=== PATIENT | male | born 1960 | race Hispanic/Latino ===

== ENCOUNTER 2018-07-02 23:15 | Inpatient (IN) | payer OTHER ==
[2018-07-03 00:30] LABS: CKMB 1.9 ng/mL (0-6.6); Troponin I Less than 0.010 ng/mL (< 0.028)
[2018-07-03] MEDS ORDERED: Ondansetron PF 4 MG/2 ML Vial IVP PRN (01:53)
[2018-07-03] MEDS ORDERED: hydrALAZINE 20 MG/ML VIAL SLOW IVP PRN (01:53)
[2018-07-03] MEDS ORDERED: Ondansetron ODT 4 MG TAB PO PRN (01:53)
[2018-07-03] MEDS ORDERED: Calcium Carbonate 500 MG ChewTAB PO PRN (01:53)
[2018-07-03] MEDS: diphenhydrAMINE 25 MG CAP PO PRN ×4 (02:13→23:00)
[2018-07-03 02:58] VITALS: BMI 32.9
[2018-07-03] MEDS ORDERED: Furosemide 40 MG/4 ML VIAL SLOW IVP SCH (04:00)
[2018-07-03] MEDS ORDERED: Levalbuterol HCl 1.25 MG/0.5 ML NEB NEB SCH (04:30)
--- NOTE | 2018-07-03 05:04 | HP ---
CHIEF COMPLAINT: Shortness of breath and increasing abdominal girth. HISTORY OF PRESENT ILLNESS: Mr. Simpson is a 58-year-old gentleman that has a history of chronic hepat itis C as well as cirrhosis of the liver. He is currently an inmate and has been incarcerated for th e past 5 years. He says that he was diagnosed with cirrhosis about 15 years ago. He has not had taurus atment for hepatitis C. He says that in the last couple of weeks, he has noted increasing abdominal girth and swelling in his lower extremities. He relates it to having an accident, where he fell and hit himself. He says on the toilet and fell. He says that he has also noted some abdominal discomfo rt. He denies any fever but has had some chills. He denies any hematemesis or vomiting. He denies any melena. He also denies any cough or congestion but says that he has been feeling weak and dizzy, especially when he tries to stand up. [facility] for [facility]. He had a CT s can of the abdomen, which was significant for a right pleural effusion, moderate size as well as poss ible infiltrate in the left base and some evidence for ascites and is being transferred to our facili ty for further evaluation. REVIEW OF SYSTEMS: All systems were reviewed and are negative except for that mentioned in the histo ry of present illness. The patient also states that he has never had to have fluid drained from his abdomen. PAST MEDICAL HISTORY: Significant for chronic hepatitis C, glaucoma, cirrhosis with a history of marcelle ices, hypertension, and diabetes mellitus. PAST SURGICAL HISTORY: He says he has had variceal banding as well as surgery for glaucoma. ALLERGIES: No known drug allergies. SOCIAL HISTORY: He is single, has two children. He is a nonsmoker, nondrinker. FAMILY HISTORY: Significant for heart disease. MEDICATIONS: Taken from his hospital records and include brimonidine ophthalmic 1 drop to both eyes 3 times a day, hydrochlorothiazide 25 mg daily, latanoprost 0.05% daily, omeprazole 40 mg daily, prop ranolol 10 mg twice a day, spironolactone 25 mg 3 times a day. PHYSICAL EXAMINATION: GENERAL: He is alert and oriented. He appears to be in some mild distress due to dyspnea. He is we ll-developed, well-nourished. VITAL SIGNS: Blood pressure was 106/84, heart rate 95, respiratory rate of 34, temperature is 97.9. HEENT: Pupils are equal, round, and reactive. Extraocular muscles are intact. His sclerae anicteri c. Throat: He has got poor dentition, no oral lesions, no erythema. NECK: No adenopathy, no bruits. LUNGS: He has got some rales at both bases and decreased breath sounds in the right base. There is no wheezing, no rhonchi. CARDIOVASCULAR: He had a normal S1, S2. I did not appreciate an S3 or S4. No murmurs, clicks, no r ubs. ABDOMEN: Distended, it is tense and dull to percussion. He has got some diffuse tenderness, but no rebound or guarding. I was not able to appreciate any organomegaly. EXTREMITIES: He has got significant pitting edema all the way to his thighs and into the groin. It is pitting and there was no erythema, no warmth. NEUROLOGIC: His cranial nerves II through XII are intact. Muscle strength is 5/5 in both upper and lower extremities. SKIN AND INTEGUMENT: There were no skin changes. No rash. He did have some mycotic nails MUSCULOSKELETAL: There was no joint effusions or muscle tenderness. LABORATORY DATA: Lab results were taken from the [facility] and the white blood cell count was 6.5, hemoglobin 13.3, hematocrit is 38, platelet count was 80. Sodium 132, potassium 3.8, chloride 102, CO2 is 25, BUN of 10, creatinine 0.6, glucose is 124. INR 1.3. BNP is 46. Ammonia le nazanin was 95. On this chest x-ray, he had some haziness bilaterally with the right more so than the le ft. He had some blunting of the costophrenic angles bilaterally and mild cardiomegaly, this is by my reading. Also EKG by my reading shows low voltage sinus rhythm with a rate of 96. ASSESSMENT AND PLAN: This is a 58-year-old gentleman that presents with acute respiratory failure in part to ascites with decreasing lung capacity as well as pneumonia. 1. With decompensated cirrhosis with ascites, he will be admitted. We will consult Interventional R adiology for an ultrasound-guided paracentesis. Since this is the first episode of ascites, we will send the fluid for Gram-stain and culture and cell count to rule out spontaneous bacterial peritoniti s. 2. Pneumonia. He will be placed on Levaquin to cover for this 3. Hypertension, currently his blood pressure is on the lower side and his medications for his liver failure including the propranolol and Aldactone can also serve as antihypertensives. 4. Chronic hepatitis C. The patient states that he is on the waiting list for treatment and this wi ll need to be handled through the correctional system.
[2018-07-03 05:22] LABS: INR-International Normal Ratio 1.5; Prothrombin Time 17.8 SEC (12.0-14.7)
[2018-07-03 05:34] LABS: Anion Gap 11 mmol/L (10-20); BUN (Urea Nitrogen) 13 mg/dL (8.4-25.7); Calc. Creatinine Clearance 136 mL/min (70-130); Calcium 8.3 mg/dL (7.8-10.44); Carbon Dioxide 24 mmol/L (22-29); Chloride 101 mmol/L (98-107); Estimated GFR-MDRD Greater than 90; Glucose 301 mg/dL (70-105); Potassium 3.6 mmol/L (3.5-5.1); Sodium 132 mmol/L (136-145)
[2018-07-03 07:44] LABS: #Basophils 0.1 thou/uL (0.0-0.2); #Lymphocytes 0.3 thou/uL (1.20-3.40); #Monocytes 0.2 thou/uL (0.11-0.59); #Neutrophils 4.9 thou/uL (1.40-6.50); %Basophils 1.7 % (0.0-1.0); %Lymphocytes 4.9 % (21.0-51.0); %Monocytes 2.7 % (0.0-10.0); %Neutrophils 90.8 % (42.0-75.0); Hemoglobin 13.5 g/dL (14.0-18.0); MDiff Complete? YES; Macrocytosis MODERATE=16-30 cells (100X) (0-5/hpf); Mean Corpuscular HGB CONC 32.6 g/dL (32.0-36.0); Mean Corpuscular Hemoglobin 36.1 pg (27.0-31.0); Mean Platelet Volume 7.9 fL (7.4-10.4); PLT Morphology Comment Appears Decreased; Platelet Count 70 thou/uL (130-400); RBC Distribution Width 14.4 % (11.5-14.5); Red Blood Cell (RBC) Count 3.74 mill/uL (4.70-6.10); White Blood Cell (WBC) Count 5.4 thou/uL (4.8-10.8)
--- NOTE | 2018-07-03 08:32 | RAD ---
CHEST ONE VIEW: Indication: History of dyspnea. Comparison: None. FINDINGS: There is cardiomegaly with pulmonary vascular congestion and perihilar airspace opacity. There are sm all bilateral pleural effusions. No pneumothorax is evident. IMPRESSION: Findings of volume overload and CHF. POS: [facility]
[2018-07-03] MEDS ORDERED: Dextrose 50% Abboject 50 ML SYRINGE SLOW IVP PRN (08:53)
[2018-07-03] MEDS ORDERED: Dextrose 5% in Water 1,000 ML IV PRN (08:53)
[2018-07-03] MEDS ORDERED: HumaLOG 300 UNITS/3 ML VIAL SC PRN (08:53)
--- NOTE | 2018-07-03 08:55 | PDOC.PN ---
- Subjective Encounter Start Date: 07/03/18 Encounter Start Time: 08:30 Notified by patient's nurse that his sepsis score had increased. Patient reports some difficulty breathing related to his abdominal distention. - Objective Resuscitation Status: Resuscitation Status FULL:Full Resuscitation MAR Reviewed: Yes Vital Signs & Weight: Vital Signs (12 hours) Temp Pulse Resp BP Pulse Ox 07/03/18 07:47 97.1 F L 113 H 22 H 139/68 97 07/03/18 06:00 97.4 F L 108 H 28 H 166/84 H 97 07/03/18 03:34 97.5 F L 126 H 40 H 158/100 H 94 L 07/03/18 01:53 96 07/03/18 01:45 97.5 F L 110 H 28 H 129/68 96 Weight Weight 216 lb 8 oz I&O: 07/02/18 07/03/18 07/04/18 06:59 06:59 06:59 Intake Total 340 Output Total 575 Balance -235 Result Diagrams: 07/03/18 05:02 07/03/18 05:02 Radiology Reviewed by me: Yes Phys Exam - Physical Examination Constitutional: NAD Sleeping, but awakens. Sleepy, but appropriate. Respiratory: no wheezing, no rales, no rhonchi Diminished right base. Cardiovascular: RRR, no significant murmur Distended, tense Deviation from normal: borderline encephalopathic, but appropriate Dx/Plan (1) Ascites Code(s): R18.8 - OTHER ASCITES Status: Acute Qualifiers: Ascites type: other type Qualified Code(s): R18.8 - Other ascites Comment: Hep C (2) Hepatitis C Code(s): B19.20 - UNSPECIFIED VIRAL HEPATITIS C WITHOUT HEPATIC COMA Status: Acute Comment: Chronic, untreated. (3) Cirrhosis Code(s): K74.60 - UNSPECIFIED CIRRHOSIS OF LIVER Status: Acute (4) SOB (shortness of breath) Code(s): R06.02 - SHORTNESS OF BREATH Status: Acute Comment: Secondary to ascites and pleural effusion (5) Peripheral edema Code(s): R60.9 - EDEMA, UNSPECIFIED Status: Acute (6) Hyperammonemia Code(s): E72.20 - DISORDER OF UREA CYCLE METABOLISM, UNSPECIFIED Status: Acute Comment: Borderline encephalopathic. On Lactulose. (7) Hyperglycemia Code(s): R73.9 - HYPERGLYCEMIA, UNSPECIFIED Status: Acute Comment: No prior DM. Accuchecks and SSI. (8) Pneumonia Code(s): J18.9 - PNEUMONIA, UNSPECIFIED ORGANISM Status: Acute Qualifiers: Pneumonia type: due to unspecified organism Laterality: left Comment: On Levaquin. - Plan * Paracentesis this morning. Reassess soon after the procedure. Continue abx. * Accuchecks and SSI.
[2018-07-03] MEDS ORDERED: Lidocaine 1% PF 5 ML VIAL ONE (10:29)
[2018-07-03] MEDS ORDERED: Sodium Bicarbonate 2.5 MEQ/5 ML VIAL ONE (10:29)
[2018-07-03] MEDS: Enoxaparin Sodium 30 MG/0.3 ML SYRINGE SC SCH (10:42)
--- NOTE | 2018-07-03 12:11 | ULT ---
ULTRASOUND GUIDED PARACENTESIS: HISTORY: Ascites. COMPARISON: None. TECHNIQUE: Consent was obtained to perform an ultrasound guided paracentesis. The patient's abdomen was evaluat ed. The right lower quadrant was deemed appropriate. Lidocaine 1% buffered with sodium bicarbonate was used for local anesthesia. Under ultrasound guidance, a 5 Pakistani, 7 cm catheter was advanced int o the peritoneal space. Via vacuum bottles, a total of 5 L of cloudy yellow-colored fluid was remove d. The patient tolerated the procedure well. No immediate or post procedure complications. FINDINGS: Technically successful ultrasound guided paracentesis. A total of 5 L of cloudy yellow-colored fluid was removed. There were no immediate or post procedure complications. IMPRESSION: Successful ultrasound guided paracentesis. POS: [facility]
[2018-07-03 13:20] LABS: BF Color Yellow; Body Fluid Source Ascites Body Fluid; Clarity Hazy (Clear); RBC Background Count 0.001; Tube # EDTA; WBC/NonHematic-Auto 242 /cumm
[2018-07-03 13:31] LABS: BF RBC Count - Manual 1800 /cumm
[2018-07-03 14:03] LABS: BF Segmented Neutrophils 31 %; Cell Count Non Hematic 57 %; Lymphocytes 12 %
[2018-07-03] MEDS: Ampicillin/Sulbactam 3 GM in Sodium Chloride 0.9% 100 ML IVPB SCH (17:48)
[2018-07-03] MEDS ORDERED: Spironolactone 25 MG TAB PO SCH (21:00)
[2018-07-03] MEDS: Propranolol 10 MG TAB PO SCH (22:05)
[2018-07-03] MEDS: Latanoprost 0.005% Ophth Soln 2.5 ml Bottle EA EYE SCH (22:05)
[2018-07-03] MEDS: Brimonidine Tartrate 0.2% Ophth Soln 5 ml Bottle EA EYE SCH (22:05)
[2018-07-04] MEDS: Ampicillin/Sulbactam 3 GM in Sodium Chloride 0.9% 100 ML IVPB SCH ×3 (01:09→18:22)
--- NOTE | 2018-07-04 03:44 | CON ---
DATE OF CONSULTATION: 07/03/2018 REASON FOR CONSULTATION: Cirrhosis with new onset ascites. CONSULTING PHYSICIAN: Dr. Nam Coats. HISTORY OF PRESENT ILLNESS: The patient is a 58-year-old male with past medical history of glaucoma, hypertension, diabetes, chronic hepatitis C infection and cirrhosis complicated by esophageal varices and lower extremity edema, presenting with complaints of increased abdominal distention. He states that he was in his usual state of health until approximately 2 weeks ago when he began to have the progressive worsening of abdominal distention and increase in weight over the same time. This was associated with increased shortness of breath at rest as well as dyspnea on exertion, dizziness, and generalized abdominal pain. His abdominal pain was characterized as a sharp, stabbing-type pain (more pricks/needles-type sensation) that was constant, nonradiating and would reach a severity of 7/10. There was no clear alleviating or exacerbating factors; however, he adds that he sustained a fall where he fell on his back with the onset of increased abdominal distention shortly thereafter. He currently denies any nausea, vomiting, fevers, chills, hematemesis, melena, hematochezia, dysphagia, odynophagia, or constipation. Concerning his cirrhosis history, he states that he was diagnosed with cirrhosis approximately 5 years and chronic hepatitis C approximately 15 years ago with his cirrhosis is complicated by the presence of esophageal varices that were noted on upper endoscopy in mid 2017, where he was noted to have large esophageal varices that were subsequently intervened upon with band ligation and placement on nonselective beta-naveen. He denies any history of hematemesis or variceal bleeding in the past, but rather the increased size of the varices necessitating treatment. He also endorses increased lower extremity edema for which he has been placed on spironolactone and furosemide as an outpatient and had been on these medications for quite some time. He also endorses a history of hepatic encephalopathy for which he had been taking lactulose 30 mL twice daily and was having approximately 2-3 semi-solid bowel movements per day while on this regimen. Also, of note, he has not been treated for his chronic hepatitis C infection, currently being naive to treatment. REVIEW OF SYSTEMS: A 10-category review of systems was obtained with all responses negative except for the pertinent positives as listed in the HPI. PAST MEDICAL HISTORY: As per HPI. PAST SURGICAL HISTORY: Glaucoma surgery, variceal band ligation x2. FAMILY HISTORY: Denies any GI malignancies. SOCIAL HISTORY: Denies any tobacco, alcohol, or illicit drug use. OUTPATIENT MEDICATIONS: Brimonidine ophthalmic 1 drop to both eyes 3 times daily, hydrochlorothiazide 25 mg daily, latanoprost 0.05% daily, omeprazole 40 mg daily, propranolol 10 mg twice daily, spironolactone 75 mg daily. ALLERGIES: No known drug allergies. PHYSICAL EXAMINATION: VITAL SIGNS: Temperature 97.9, pulse 113, blood pressure 123/65, respiratory rate 18, satting 95% on 2 liters nasal cannula. GENERAL: Patient is lying in bed, in no acute distress. Alert and oriented x4 ; however, he does display significant conversational dyspnea. NECK: Supple. No JVD noted. No scleral icterus also noted. CARDIOVASCULAR: Tachycardic rate, but regular rhythm with no discernible murmurs, gallops, or rubs. PULMONARY: Mild decreased breath sounds in the right lower lobe, but otherwise clear to auscultation. No discernible wheezes or rales. ABDOMEN: Normoactive bowel sounds, soft, tenderness to palpation in all abdominal quadrants. Significant abdominal distention with positive shifting dullness. I could not palpate any hepatomegaly or splenomegaly secondary to the ascites. He did exhibit some pitting edema in the lower abdomen as well, consistent with anasarca. EXTREMITIES: No cyanosis or clubbing; however, he did have 3+ bilateral lower extremity edema extending up into mid-thigh and possibly into the groin. LABORATORY DATA: CBC with a white blood cell count of 5.4, hemoglobin 13.5, hematocrit 41.4, platelets 70. INR 1.5. Chemistry with a sodium of 132, potassium 3.6, chloride 101, CO2 of 24, BUN 13, creatinine 0.84, glucose 301. Paracentesis fluid analysis showed a white blood cell count of 252 that was 31% PMNs. Preliminary culture of the ascitic fluid does not show any evidence of infection. IMAGING DATA: A chest x-ray was performed on 07/02/2018 and showed cardiomegaly with pulmonary vascular congestion and perihilar airspace opacities as well as small bilateral pleural effusions. No pneumothorax was evident, but the above findings were consistent with volume overload and possible CHF. ASSESSMENT AND PLAN: The patient is a 58-year-old male with past medical history of glaucoma, hypertension, diabetes, chronic hepatitis C infection, and cirrhosis complicated by esophageal varices, lower extremity edema, hepatic encephalopathy, and now more recently ascites, presenting with increased abdominal distention and imaging findings concerning for fluid overload. Cirrhosis: The patient is presenting with a diagnosis of cirrhosis that was made approximately 5 years ago, presumably secondary to one of the complicating sequelae of his chronic hepatitis C infection. With his cirrhosis, he is currently displaying decompensated disease as evidenced by the presence of prior esophageal varices, lower extremity edema, and now new onset ascites. I cannot calculate a MELD or Child-Osorio classification at this time due to lack of bilirubin on labs. Per chart review, there is no mention of the patient having either screening, imaging of his liver for possible HCC nor ever having undergone a colonoscopy for evaluation of possible colorectal cancer (the patient is at the appropriate age for colonoscopy screening). Recommendations: 1. Would obtain a full chemistry profile to accurately define the patient's current MELD score as well as determine liver function as evidenced by total bilirubin. 2. We will consider right upper quadrant ultrasound or CT of the liver during this admission for possible hepatocellular carcinoma, which could theoretically generate increased ascites. 3. Once the patient's status is discharged, would consider an outpatient colonoscopy for screening for colorectal cancer. New onset ascites: The patient is presenting with the fairly new onset of increased abdominal distention and weight that has been progressively getting worse over the last 2 weeks after sustaining a fall and landing on his back. This is associated with increased shortness of breath at rest as well as dyspnea on exertion for the last week and accompanied with increased generalized dizziness as well as generalized abdominal pain. He underwent paracentesis on 07/03/2018, which showed no evidence of infection via the culture and while he does have an elevated white blood cell count via analysis of the parasitic fluid, the fact that only 30% are PMNs, does not meet criteria for spontaneous bacterial peritonitis; however, given his significant conversational dyspnea especially after obtaining 5 liters of fluid from the paracentesis earlier today. It is concerning for another underlying process contributing to his new onset ascites, especially with a recent chest x-ray showing cardiomegaly and possible pulmonary vascular congestion consistent with fluid overload and/or congestive heart failure. Hepatocellular carcinoma is also within the differential for worsening of ascites. Recommendations: 1. I will call the lab to see if they can run the already existing paracentesis fluid with fluid albumin and protein to further differentiate whether or not this is portal hypertension or cardiac abnormalities generating his new onset ascites. 2. I would consider obtaining an echocardiogram on this patient given his cardiomegaly and pulmonary vascular congestion as cirrhosis patients are prone to heart disease as well. 3. I would recommend increasing the spironolactone to 100 mg daily, in addition to adding furosemide 40 mg daily for adequate diuresis of possible cirrhotic-induced ascites. However, this may change if he indeed does have congestive heart failure. 4. While the patient does not currently meet criteria for spontaneous bacterial peritonitis, antibiotic administration for his bilateral pleural effusions and possible pneumonia, it is not unreasonable. We will defer to primary team for management of that. 5. Would consider CT scan as above for possible HCC. Esophageal varices: The patient is presenting with the diagnosis of large esophageal varices that was made in mid 2016 for which he underwent two upper endoscopies with band ligation as well as placement on nonselective beta blockade. As an outpatient, he was taking approximately 10 mg of propranolol twice daily for primary prophylaxis of variceal bleeding. With sudden discontinuation of this medication, he could potentially create rebound hypertension and tachycardia, which may be why the patient is having the tachycardia on physical exam, but should not necessarily create increased volume overload as evidenced by his increased abdominal distention/anasarca as well as findings seen on chest x-ray. Recommendations: 1. I agree with restarting the propranolol 10 mg b.i.d., but would pursue the cardiac workup as outlined above for possible volume overload. 2. Repeat upper endoscopy will most likely need to be performed 1 year from his previous, but this is not necessarily due until 07/2018. Hepatic encephalopathy: The patient is also presenting with decompensated liver disease with episodes of hepatic encephalopathy as described by increased memory loss for which the patient was placed on lactulose 30 mL b.i.d. while on this regimen, he will have approximately 2-3 semisolid bowel movements per day and per patient, he has been fairly successful in helping clear sensorium. Recommendations: 1. I would continue the lactulose regimen of 30 mL twice daily for treatment of his hepatic encephalopathy. We will continue to follow. Please call with any questions. MTDD
[2018-07-04 05:53] LABS: INR-International Normal Ratio 1.6; Prothrombin Time 19.6 SEC (12.0-14.7)
[2018-07-04 06:04] LABS: #Lymphocytes 0.8 thou/uL (1.20-3.40); #Monocytes 0.7 thou/uL (0.11-0.59); #Neutrophils 5.6 thou/uL (1.40-6.50); %Basophils 0.1 % (0.0-1.0); %Eosinophils 0.7 % (0.0-10.0); %Lymphocytes 10.5 % (21.0-51.0); %Monocytes 10.4 % (0.0-10.0); %Neutrophils 78.3 % (42.0-75.0); Hemoglobin 11.4 g/dL (14.0-18.0); Mean Corpuscular HGB CONC 32.8 g/dL (32.0-36.0); Mean Corpuscular Hemoglobin 36.2 pg (27.0-31.0); Mean Platelet Volume 8.1 fL (7.4-10.4); Platelet Count 59 thou/uL (130-400); RBC Distribution Width 14.4 % (11.5-14.5); Red Blood Cell (RBC) Count 3.15 mill/uL (4.70-6.10); White Blood Cell (WBC) Count 7.1 thou/uL (4.8-10.8)
[2018-07-04 06:05] LABS: ALT (SGPT) 49 U/L (8-55); AST (SGOT) 60 U/L (5-34); Albumin 2.1 g/dL (3.5-5.0); Alkaline Phosphatase 126 U/L (40-150); Anion Gap 7 mmol/L (10-20); BUN (Urea Nitrogen) 13 mg/dL (8.4-25.7); Bilirubin, Total 1.6 mg/dL (0.2-1.2); Calc. Creatinine Clearance 176 mL/min (70-130); Calcium 7.8 mg/dL (7.8-10.44); Carbon Dioxide 27 mmol/L (22-29); Chloride 106 mmol/L (98-107); Estimated GFR-MDRD Greater than 90; Globulin 3.5 g/dL (2.4-3.5); Glucose 102 mg/dL (70-105); Potassium 3.8 mmol/L (3.5-5.1); Protein, Total 5.6 g/dL (6.0-8.3); Sodium 136 mmol/L (136-145)
--- NOTE | 2018-07-04 07:42 | RAD ---
PORTABLE UPRIGHT FRONTAL CHEST RADIOGRAPH: DATE: 07/04/2018. COMPARISON: 07/03/2018. HISTORY: Pleural effusion. FINDINGS: There is hazy increased density within bilateral perihilar regions, right greater than left, and with in both lung bases, right greater than left. There is blunting of bilateral costophrenic angles sugg esting stable bilateral pleural effusions, right greater than left. No pneumothorax. IMPRESSION: Stable bibasilar pleural and parenchymal opacity, right greater than left. Findings may be related t o pulmonary edema or infectious pneumonitis. POS: [facility]
[2018-07-04] MEDS ORDERED: Hydrochlorothiazide 25 MG TAB PO SCH (09:00)
[2018-07-04] MEDS: Furosemide 40 MG TAB PO SCH (09:11)
[2018-07-04] MEDS: Spironolactone 100 MG TAB PO SCH (09:11)
[2018-07-04] MEDS: Brimonidine Tartrate 0.2% Ophth Soln 5 ml Bottle EA EYE SCH ×3 (09:12→20:10)
--- NOTE | 2018-07-04 09:41 | CON ---
DATE OF CONSULTATION: 07/04/2018 This is 70 minutes time, of that time, greater than 50% of the time was spent with the patient and/or on the patient's unit in the hospital. CONSULTING PHYSICIAN: Dr. Coats REASON FOR CONSULTATION: Possible right pleural effusion. HISTORY OF PRESENT ILLNESS: The patient is a 58-year-old male who was admitted to the [facility] a couple of days ago with abdominal distention and shortness of breath. He has chronic hepatitis C. He had 5 liters of ascitic fluid tapped from his abdomen yesterday. He has a small right pleura l effusion. He tells me that his breathing is much better today after having the ascites tapped yest erday. He denies any previous history of lung disease and says he has no history of heart disease. PAST MEDICAL HISTORY: 1. Chronic hepatitis C. 2. Cirrhosis. 3. Esophageal varices. 4. Hypertension. 5. Diabetes mellitus. PAST SURGICAL HISTORY: Variceal banding. ALLERGIES: None. SOCIAL HISTORY: Former smoker, has not smoked in 6 years. Does not currently consume alcohol. He i s a pen[facility]iary inmate. MEDICATIONS PRIOR TO ADMISSION: Eyedrops, hydrochlorothiazide, omeprazole, propranolol, spironolacto ne. REVIEW OF SYSTEMS: Remarkable for shortness of breath and the ascites, otherwise negative. PHYSICAL EXAMINATION: VITAL SIGNS: Temperature 98.0, pulse 83, respirations 20, O2 saturation 97% on 2 liters, blood press ure 109/70. GENERAL: He appears mildly dyspneic at rest. HEENT: Unremarkable. NECK: Without adenopathy, JVD, or bruits. LUNGS: Diminished breath sounds in the right base compared to left. CARDIOVASCULAR: S1, S2, slightly tachycardic. No murmur. ABDOMEN: Distended, fluid wave present. EXTREMITIES: No clubbing, cyanosis, but has trace edema. LABORATORY DATA: White blood cell count 7, hematocrit 34.8, platelet count 59. INR 1.6. Sodium 136 , potassium 3.8, chloride 106, CO2 27, BUN 13, creatinine 0.6, glucose 102, albumin is 2.1, total sophia irubin 1.6. His ascitic fluid showed a total protein of less than 1. His chest x-ray was reviewed. ASSESSMENT: 1. The patient has bilateral effusions, right greater than left, which I would characterize as small . These are most likely there because of ascites and translocation of fluid. 2. Chronic hepatitis C. 3. Esophageal varices. RECOMMENDATIONS: These pleural effusions would be best managed medically with diuretics, fluid restr iction, etc. He is currently being seen by Dr. Ventura from [facility] for an opinion regarding his liver status. I think his prognosis is quite poor. I agree with checking echocardiogram. I silvano l be happy to follow with you.
[2018-07-04] MEDS: Enoxaparin Sodium 30 MG/0.3 ML SYRINGE SC SCH (10:57)
[2018-07-04] MEDS: Propranolol 10 MG TAB PO SCH ×2 (10:58→20:10)
[2018-07-04] MEDS ORDERED: ISOVUE-370 76%-LOCM 1 ML ONE (13:37)
[2018-07-04] MEDS: diphenhydrAMINE 25 MG CAP PO PRN ×2 (14:22→20:14)
--- NOTE | 2018-07-04 17:45 | PDOC.PN ---
- Subjective Encounter Start Date: 07/04/18 Encounter Start Time: 15:30 Patient seen and examined for Ascites/SOB. Abd pain +. Denies N/V. No new complaints. No overnight events - Objective Resuscitation Status: Resuscitation Status FULL:Full Resuscitation MAR Reviewed: Yes Vital Signs & Weight: Vital Signs (12 hours) Temp Pulse Resp BP Pulse Ox 07/04/18 15:00 98.2 F 77 16 118/69 98 07/04/18 11:00 97.6 F 75 17 109/76 99 Weight Weight 216 lb 8 oz I&O: 07/03/18 07/04/18 07/05/18 06:59 06:59 06:59 Intake Total 860 Output Total 775 Balance 85 Result Diagrams: 07/04/18 05:24 07/04/18 05:24 Additional Labs: Accuchecks 07/04/18 07/04/18 07/04/18 15:29 11:33 04:27 POC Glucose 131 H 157 H 144 H 07/03/18 21:09 POC Glucose 167 H Phys Exam - Physical Examination Constitutional: NAD Respiratory: no wheezing, no rhonchi Dec AE at bases with few biabsilar rales Cardiovascular: RRR, no rub Gastrointestinal: soft, positive bowel sounds mild gen tend+ Musculoskeletal: edema present Neurological: moves all 4 limbs Dx/Plan - Plan DVT proph w/SCDs 1. Symptomatic ascites s/p Paracentesis 2. Hepatic Encephalopathy 3. Chronic Hep C/Cirrhosis 4. Pleural effusion 5. DM2 6. Esophageal varices 7. HTN / Thrombocytopenia due to ESLD PLAN: Await Echo Cont Levaquin DC HCTZ DC Unasyn Cont Lacutlose AM labs DC Lovenox due to thrombocytopenia Review of Systems - Review of Systems Cardiovascular: negative: chest pain, palpitations, orthopnea, paroxysmal nocturnal dyspnea, edema, light headedness, other Genitourinary: negative: Dysuria, Frequency, Incontinence, Hematuria, Retention , Other - Medications/Allergies Allergies/Adverse Reactions: Allergies Allergy/AdvReac Type Severity Reaction Status Date / Time No Known Drug Intolerances Allergy Verified 07/03/18 03:50 Medications: Current Medications Brimonidine Tartrate (Alphagan 0.2% Ophth Soln) 1 drop EA EYE TID [facility] Last Admin: 07/04/18 14:22 Dose: 1 drop Calcium Carbonate (Tums) 1,000 mg PO Q4H PRN PRN Reason: Heartburn or Indigestion Dextrose/Water (Dextrose 50%) 25 gm SLOW IVP PRN PRN PRN Reason: Hypoglycemia Diphenhydramine HCl (Benadryl) 25 mg PO Q4H PRN PRN Reason: Itching & Hives (mild) Last Admin: 07/04/18 14:22 Dose: 25 mg Enoxaparin Sodium (Lovenox) 30 mg SC 0900 [facility] Last Admin: 07/04/18 10:57 Dose: 30 mg Furosemide (Lasix) 40 mg PO DAILY [facility] Last Admin: 07/04/18 09:11 Dose: 40 mg Glucagon (Glucagon) 1 mg IM PRN PRN PRN Reason: Hypoglycemia Hydralazine HCl (Apresoline) 10 mg SLOW IVP Q4H PRN PRN Reason: SBP > 180 and HR < 70 Hydrochlorothiazide (Hydrochlorothiazide) 25 mg PO DAILY [facility] Last Admin: 07/04/18 09:11 Dose: 25 mg Levofloxacin 500 mg/ Device 100 mls @ 100 mls/hr IVPB 0200 [facility] Last Admin: 07/04/18 01:42 Dose: 100 mls Dextrose/Water (D5w) 1,000 mls @ 0 mls/hr IV .Q0M PRN PRN Reason: Hypoglycemia Ampicillin Sodium/Sulbactam (Sodium 3 gm/ Sodium Chloride) 100 mls @ 200 mls/ hr IVPB 0100,0900,1700 [facility] Last Admin: 07/04/18 09:10 Dose: 100 mls Insulin Human Lispro (Humalog) 0 units SC .MILD SLIDING SCALE PRN PRN Reason: Mild Correctional Scale Lactulose (Lactulose) 600 gm PO BID [facility] Latanoprost (Xalatan 0.005% Ophth Soln) 1 drop EA EYE HS [facility] Last Admin: 07/03/18 22:05 Dose: 1 drop Ondansetron HCl (Zofran Odt) 4 mg PO Q6H PRN PRN Reason: Nausea/Vomiting Ondansetron HCl (Zofran) 4 mg IVP Q6H PRN PRN Reason: Nausea/Vomiting Pantoprazole Sodium (Protonix) 40 mg PO DAILY [facility] Last Admin: 07/04/18 09:11 Dose: 40 mg Propranolol HCl (Inderal) 10 mg PO BID [facility] Last Admin: 07/04/18 10:58 Dose: 10 mg Sodium Chloride (Flush - Normal Saline) 10 ml IVF PRN PRN PRN Reason: Saline Flush Spironolactone (Aldactone) 100 mg PO QAM-[facility] Last Admin: 07/04/18 09:11 Dose: 100 mg
--- NOTE | 2018-07-04 19:21 | PRG ---
DATE OF SERVICE: 07/04/2018 REASON FOR CONSULTATION: Cirrhosis with new onset ascites. SUBJECTIVE: The patient did well overnight with no acute events or problems during that time. He st ates that his abdominal pain is improved minimally from yesterday as well his difficulty breathing, s tating that his shortness of breath is mildly improved when compared to yesterday or even 48 to 72 ho urs ago. He had approximately 3 bowel movements within the last 24 hours consisting of solid to semi solid consistency with no difficulty with defecation, currently denies any nausea, vomiting, fevers, chills, dysphagia, odynophagia or GI bleeding. OBJECTIVE: VITAL SIGNS: Temperature 98.2, pulse 77, blood pressure 118/69, respiratory rate 16, satting 98% on 2 liters nasal cannula. GENERAL: The patient was sitting at bedside, eating dinner in no acute distress. Mild to moderate c onversational dyspnea noted. CARDIOVASCULAR: Regular rate and rhythm with no discernible murmurs, gallops or rubs. PULMONARY: Mild decreased breath sounds in the right lower lobe as well as possible left lower lobe, but otherwise clear to auscultation. No discernible wheezes or rales. ABDOMEN: Normoactive bowel sounds, soft, tenderness to palpation in all abdominal quadrants, but imp roved from yesterday. Significant abdominal distention with positive shifting dullness consistent wi th ascites, did exhibit some pitting edema in the lower abdomen consistent with anasarca. EXTREMITIES: 2+/3+ bilateral lower extremity edema extending up to mid thigh and possibly into the g roin. LABORATORY DATA: CBC with a white blood cell count of 7.1, hemoglobin 11.4, hematocrit 34.8, platele ts 59. INR 1.6. Chemistry with a sodium of 136, potassium 3.8, chloride 106, CO2 27, BUN 13, creati nine 0.65, glucose 102, AST 60, ALT 49, alkaline phosphatase 126, total bilirubin 1.6. MELD calculat ed at 16. IMAGING DATA: Chest x-ray performed on 07/04/2018 showed stable bibasilar pleural and parenchymal op acities, right greater than left, which could be related to pulmonary edema or infectious pneumonitis . ASSESSMENT AND PLAN: The patient is a 58-year-old male with past medical history of glaucoma, hypert ension, diabetes, chronic hepatitis C infection and cirrhosis complicated by esophageal varices, lowe r extremity edema, hepatic encephalopathy and now more recently acute onset ascites, presenting with increased abdominal distention consistent with acute onset ascites. Cirrhosis: The patient is presenting with a diagnosis of cirrhosis from approximately 5 years ago, p resumably secondary to chronic hepatitis C infection. With his current clinical status, he is display ing decompensated disease as evidenced by the presence of esophageal varices, lower extremity edema a nd now new onset ascites. At the current time, his calculated MELD score is 16 with a Child-Osorio cla ssification C indicating severe disease. Per chart review, there is no mention of the patient being screened for possible hepatocellular carcinoma, which could potentially generate increased ascites or worsening ascites over time and may be a reasonable option during this admission for evaluation. RECOMMENDATIONS: 1. We would continue to obtain chemistries daily for evidence of possible further liver decompensati on as well as INR to calculate daily MELD. 2. We would consider CT scan of the liver with multiphasic study for determination of possible HCC. 4. Once the patient is discharged, would consider an outpatient colonoscopy for screening for colore ctal cancer. New onset ascites: The patient is presenting with fairly new onset of increased abdominal distention prior to admission as well as increased abdominal ascites as noted on abdominal ultrasound yesterday . He underwent paracentesis on 07/03/2018 with removal of approximately 5 liters of ascitic fluid wi th cytology showing a white blood cell count of 252, but only 30% of being PMNs which does not curren tly meet criteria for spontaneous bacterial peritonitis. The serum protein within the fluid was less than 1 indicating probable portal hypertension as opposed to a cardiac etiology contributing to his cirrhosis. Albumin is still pending at this time which may further elucidate whether this is portal hypertension versus another underlying pathology; however, with the recent chest x-ray showing bilate ral pleural effusions as well as pulmonary vascular congestion, fluid overload and/or congestive hear t failure is a potential possibility. Hepatocellular carcinoma could also potentially generate new o nset of ascites, especially given his longstanding history of cirrhosis placing him at increased risk for this diagnosis. RECOMMENDATIONS: 1. We will consider obtaining an echocardiogram on this patient for possible congestive heart failur e. 2. We would continue spironolactone 100 mg daily, as well as Furosemide 40 mg daily. 3. Adequate diuresis of possible cirrhotic induced ascites. One could also consider a one time dose of 40 mg of furosemide IV to help with diuresis at least initially. 4. While the patient does not currently meet criteria for spontaneous bacterial peritonitis, antibio tic administration for his bilateral pleural effusions and possible pneumonia is not unreasonable, wo uld defer to primary team for further management. Esophageal varices: Patient is presenting with a diagnosis of large esophageal varices made in mid for which he underwent two upper endoscopies with band ligation as well as placement chronically o n a nonselective beta blockade. He had been placed on propranolol 10 mg twice daily as primary proph ylaxis of variceal bleeding and denies a history of any hematemesis during his lifetime. Given his c urrent pulse rate of 77, he is currently not at the target heart rate at 55-65 beats per minute, larson kleber, given a possible underlying infection which is currently being managed by antibiotics, I would b e leery to increase his nonselective beta blockade in light of that possible diagnosis. I would also be a little hesitant to increase his beta blockers in light of worsening congestive heart failure, w hich would potentially decrease his cardiac output. RECOMMENDATIONS: 1. We would continue with propranolol 10 mg b.i.d. with plans to possibly increase this medication i n the future once his clinical status has improved. 2. Would repeat upper endoscopy from 1 year from his previous examination for surveillance of esopha geal varices (07/2018). Hepatic encephalopathy: The patient is presenting with a history of hepatic encephalopathy for which he has been placed on lactulose 30 mL b.i.d. While on this regimen, it seems that he is having appr oximately 2-3 solid to semisolid bowel movements per day with adequate clearing of his sensorium and no episodes of disorientation. RECOMMENDATIONS: 1. I would continue the lactulose regimen of 30 mL twice daily for treatment of hepatic encephalopat hy with the goal of having approximately 3-4 bowel movements per day. 2. Would avoid constipation in this patient as it could exacerbate his hepatic encephalopathy. We will continue to follow. Please call with any additional questions.
[2018-07-04] MEDS: Latanoprost 0.005% Ophth Soln 2.5 ml Bottle EA EYE SCH (20:14)
--- NOTE | 2018-07-04 22:32 | CT ---
CT OF THE ABDOMEN AND PELVIS WITH AND WITHOUT IV CONTRAST 07/04/18 INDICATION: Concern for hepatocellular carcinoma with cirrhosis and worsening ascites. COMPARISON: None. FINDINGS: There is severe cirrhotic morphology of the liver. There is findings of portal hypertension with sple nomegaly up to 17 cm. No suspicious arterial enhancing lesion is evident. There is a small gallstone within the gallbladder. There is mild to moderate ascites. There is a moderate right pleural effusion. There is right bibasil ar atelectasis. The bladder, rectum and perirectal soft tissues are unremarkable. There is a fluid containing right i nguinal and umbilical hernia. There is mild anasarca. No definite acute osseous abnormality is eviden t. IMPRESSION: 1. Cirrhosis with findings of portal hypertension. 2. No suspicious arterial enhancing lesion to suggest presence of hepatocellular carcinoma. 3. Moderate right pleural effusion with mild to moderate ascites and anasarca. 4. Fluid containing umbilical and right inguinal hernia. POS: BH
[2018-07-05 04:21] LABS: INR-International Normal Ratio 1.6; Prothrombin Time 18.9 SEC (12.0-14.7)
[2018-07-05 04:25] LABS: #Eosinphils 0.3 thou/uL (0.0-0.7); #Lymphocytes 0.8 thou/uL (1.20-3.40); #Monocytes 0.7 thou/uL (0.11-0.59); #Neutrophils 3.6 thou/uL (1.40-6.50); %Basophils 0.3 % (0.0-1.0); %Eosinophils 5.2 % (0.0-10.0); %Lymphocytes 15.3 % (21.0-51.0); %Monocytes 12.6 % (0.0-10.0); %Neutrophils 66.6 % (42.0-75.0); Hemoglobin 12.5 g/dL (14.0-18.0); Mean Corpuscular HGB CONC 32.9 g/dL (32.0-36.0); Mean Corpuscular Hemoglobin 36.8 pg (27.0-31.0); Mean Platelet Volume 7.7 fL (7.4-10.4); Platelet Count 65 thou/uL (130-400); RBC Distribution Width 14.7 % (11.5-14.5); Red Blood Cell (RBC) Count 3.41 mill/uL (4.70-6.10); White Blood Cell (WBC) Count 5.3 thou/uL (4.8-10.8)
[2018-07-05 04:27] LABS: ALT (SGPT) 56 U/L (8-55); AST (SGOT) 74 U/L (5-34); Albumin 2.2 g/dL (3.5-5.0); Alkaline Phosphatase 130 U/L (40-150); Anion Gap 6 mmol/L (10-20); BUN (Urea Nitrogen) 14 mg/dL (8.4-25.7); Bilirubin, Total 1.7 mg/dL (0.2-1.2); Calc. Creatinine Clearance 166 mL/min (70-130); Carbon Dioxide 30 mmol/L (22-29); Chloride 104 mmol/L (98-107); Estimated GFR-MDRD Greater than 90; Globulin 3.7 g/dL (2.4-3.5); Glucose 92 mg/dL (70-105); Magnesium 1.7 mg/dL (1.6-2.6); Potassium 3.8 mmol/L (3.5-5.1); Protein, Total 5.9 g/dL (6.0-8.3); Sodium 136 mmol/L (136-145)
[2018-07-05 04:29] LABS: Phosphorus 3.1 mg/dL (2.3-4.7)
[2018-07-05] MEDS: Propranolol 10 MG TAB PO SCH ×2 (08:23→21:01)
[2018-07-05] MEDS: Furosemide 40 MG TAB PO SCH (08:23)
[2018-07-05] MEDS: Spironolactone 100 MG TAB PO SCH (08:23)
[2018-07-05] MEDS: Brimonidine Tartrate 0.2% Ophth Soln 5 ml Bottle EA EYE SCH ×3 (08:24→21:02)
[2018-07-05] MEDS ORDERED: Furosemide 40 MG/4 ML VIAL SLOW IVP SCH (08:30)
--- NOTE | 2018-07-05 09:04 | PRG ---
DATE OF SERVICE: 07/05/2018 The patient is still mildly short of breath. He seems to have already reaccumulated his ascitic flui d. PHYSICAL EXAMINATION: VITAL SIGNS: Temperature 98.1, pulse 80, respiration 16, O2 sat 92% on 2 liters, blood pressure 120/ 77. HEENT: Unremarkable. NECK: No JVD. LUNGS: Diminished breath sounds in the right base compared to left. CARDIAC: S1 and S2 regular. ABDOMEN: Protuberant with fluid wave. EXTREMITIES: Edematous. LABORATORY DATA: White blood cell count 5.3, hematocrit 38.1, platelet count 65. Sodium 136, potass ium 3.8, chloride 104, CO2 30, BUN 14, creatinine 0.7, glucose 86, albumin 2.2. 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 RECOMMENDATIONS: 1. Continue treatment of the ascites with fluid restriction and diuretics. 2. Serial paracentesis as needed. 3. Thoracentesis will not be helpful as long as the patient has tremendous fluid accumulation in his abdomen.
--- NOTE | 2018-07-05 17:57 | PDOC.PN ---
- Subjective Encounter Start Date: 07/05/18 Encounter Start Time: 13:00 Patient seen and examined for Ascites. Abd pain. Had 2-3 BMs today. No N/V. No other complaints. No overnight events - Objective Resuscitation Status: Resuscitation Status FULL:Full Resuscitation MAR Reviewed: Yes Vital Signs & Weight: Vital Signs (12 hours) Temp Pulse Resp BP Pulse Ox 07/05/18 16:35 98.3 F 77 18 118/72 96 07/05/18 11:30 97.7 F 74 18 121/75 98 07/05/18 08:00 98.1 F 75 18 117/73 99 Weight Weight 216 lb 8 oz I&O: 07/04/18 07/05/18 07/06/18 06:59 06:59 06:59 Intake Total 860 1380 600 Output Total 775 Balance 85 1380 600 Result Diagrams: 07/05/18 03:44 07/05/18 03:44 Additional Labs: Accuchecks 07/05/18 07/05/18 07/05/18 16:30 11:25 04:24 POC Glucose 113 H 124 H 86 07/04/18 19:47 POC Glucose 109 Phys Exam - Physical Examination Constitutional: NAD Respiratory: no wheezing, no rhonchi Cardiovascular: RRR, no rub Gastrointestinal: soft, positive bowel sounds gen tend, no rebound/guarding Musculoskeletal: edema present Neurological: moves all 4 limbs Dx/Plan - Plan DVT proph w/SCDs 1. Symptomatic ascites due to Portal HTN s/p Paracentesis - SBP ruled out 2. Hepatic Encephalopathy - on Lactulose 3. Chronic Hep C/Cirrhosis 4. Pleural effusion - hydrothorax 5. DM2 6. Esophageal varices - on 7. HTN / Thrombocytopenia due to ESLD PLAN: Cont Levaquin Cont Lactulose/Inderal/Lasix/Aldactone Cont Fluid rest AM labs Review of Systems - Review of Systems Respiratory: negative: Cough, Dry, Shortness of Breath, Hemoptysis, SOB with Excertion, Pleuritic Pain, Sputum, Wheezing Cardiovascular: negative: chest pain, palpitations, orthopnea, paroxysmal nocturnal dyspnea, edema, light headedness, other - Medications/Allergies Allergies/Adverse Reactions: Allergies Allergy/AdvReac Type Severity Reaction Status Date / Time No Known Drug Intolerances Allergy Verified 07/03/18 03:50 Medications: Current Medications Brimonidine Tartrate (Alphagan 0.2% Ophth Soln) 1 drop EA EYE TID [facility] Last Admin: 07/05/18 15:02 Dose: 1 drop Calcium Carbonate (Tums) 1,000 mg PO Q4H PRN PRN Reason: Heartburn or Indigestion Dextrose/Water (Dextrose 50%) 25 gm SLOW IVP PRN PRN PRN Reason: Hypoglycemia Furosemide (Lasix) 40 mg PO DAILY [facility] Last Admin: 07/05/18 08:23 Dose: 40 mg Glucagon (Glucagon) 1 mg IM PRN PRN PRN Reason: Hypoglycemia Hydralazine HCl (Apresoline) 10 mg SLOW IVP Q4H PRN PRN Reason: SBP > 180 and HR < 70 Levofloxacin 500 mg/ Device 100 mls @ 100 mls/hr IVPB 0200 [facility] Last Admin: 07/05/18 02:11 Dose: 100 mls Dextrose/Water (D5w) 1,000 mls @ 0 mls/hr IV .Q0M PRN PRN Reason: Hypoglycemia Insulin Human Lispro (Humalog) 0 units SC .MILD SLIDING SCALE PRN PRN Reason: Mild Correctional Scale Lactulose (Lactulose) 20 gm PO TID [facility] Last Admin: 07/05/18 15:01 Dose: 20 gm Latanoprost (Xalatan 0.005% Ophth Soln) 1 drop EA EYE HS [facility] Last Admin: 07/04/18 20:14 Dose: 1 drop Ondansetron HCl (Zofran Odt) 4 mg PO Q6H PRN PRN Reason: Nausea/Vomiting Ondansetron HCl (Zofran) 4 mg IVP Q6H PRN PRN Reason: Nausea/Vomiting Last Admin: 07/05/18 04:56 Dose: 4 mg Pantoprazole Sodium (Protonix) 40 mg PO DAILY [facility] Last Admin: 07/05/18 08:23 Dose: 40 mg Propranolol HCl (Inderal) 10 mg PO BID [facility] Last Admin: 07/05/18 08:23 Dose: 10 mg Sodium Chloride (Flush - Normal Saline) 10 ml IVF PRN PRN PRN Reason: Saline Flush Spironolactone (Aldactone) 100 mg PO QAM-[facility] Last Admin: 07/05/18 08:23 Dose: 100 mg
--- NOTE | 2018-07-05 18:07 | PRG ---
DATE OF SERVICE: 07/05/2018 REASON FOR CONSULTATION: Cirrhosis with new onset ascites. SUBJECTIVE: The patient did well overnight with no acute events or problems. Today, he states that he did have increased urinary output with the administration of IV Lasix. He states that his shortne ss of breath has been improving over the last 24-48 hours. When talking with the patient this evenin g, his conversational dyspnea also seems improved when compared to previous. He has also had approxi mately 3 bowel movements within the last 24 hours consisting of semisolid to liquid consistency with no difficulty defecation. He currently denies any nausea, vomiting, fevers, chills, dysphagia, odyno phagia or GI bleeding. OBJECTIVE: VITAL SIGNS: Temperature 98.3, pulse 77, blood pressure 118/72, respiratory rate 18, satting 96% on 2 liters nasal cannula. GENERAL: Patient is lying in bed in no acute distress. Mild conversational dyspnea noted. CARDIOVASCULAR: Regular rate and rhythm. PULMONARY: Mild decreased breath sounds in the bilateral lower lobes, right greater than the left, b ut otherwise clear to auscultation. ABDOMEN: Normoactive bowel sounds, soft, mild tenderness to palpation in the periumbilical and lower abdominal quadrants. Positive shifting dullness consistent with ascites and pitting edema in the lo wer abdomen consistent with anasarca. EXTREMITIES: 2+ bilateral lower extremity edema extending up to mid thigh and into the groin. LABORATORY DATA: CBC with a white blood cell count of 5.3, hemoglobin 12.5, hematocrit 38.1, platele ts 65. INR 1.6. Chemistry with sodium 136, potassium 3.8, chloride 104, CO2 30, BUN 14, creatinine 0.69, glucose 92, AST 74, ALT 56, alkaline phosphatase 130, total bilirubin 1.7, albumin 2.2. IMAGING DATA: CT of the abdomen and pelvis obtained on 07/04/2018 showed cirrhotic morphology of the liver with findings of portal hypertension; however, no suspicious arterial enhancing lesion was see n within the liver to suggest hepatocellular carcinoma. There was also mild to moderate ascites and a moderate right pleural effusion known with right bibasilar atelectasis. ASSESSMENT AND PLAN: The patient is a 58-year-old male with past medical history of glaucoma, hypert ension, diabetes, chronic hepatitis C infection (naive to treatment) and cirrhosis complicated by eso phageal varices lower extremity edema, hepatic encephalopathy and now acute onset ascites, presenting with increased abdominal distention consistent with ascites. CIRRHOSIS: The patient is presenting with a diagnosis of cirrhosis made approximately 5 years ago, p resumably secondary to chronic hepatitis C infection, currently presenting with decompensated disease as evidenced by the presence of esophageal varices, lower extremity edema and now new onset ascites. At the current time, his calculated MELD score is 16 with a Child-Osorio classification C indicated s evere disease. CT scan of the abdomen performed in the last 24 hours did not show any evidence of he patocellular carcinoma, thereby ruling it out as a possible source of new onset ascites. RECOMMENDATIONS: 1. We would continue to obtain chemistries daily for evidence of possible further liver decompensati on. 2. Once the patient is discharged, would consider an outpatient colonoscopy for screening for colore ctal cancer. NEW ONSET OF ASCITES: The patient is presenting with fairly new onset of increased abdominal distent ion prior to admission consistent with new onset abdominal ascites. He underwent paracentesis on with removal of approximately 5 liters of ascitic fluid with cytology showing a white blood c ell count of 252, but only 30% being PMNs which does not meet criteria for spontaneous bacterial susanna tonitis. Given the other factors within the ascitic fluid with a low ascitic protein and high sag ra scott with fluid albumin of 0.3, the most likely source at this point is portal hypertension from cirrh otic origin. RECOMMENDATIONS: 1. We will continue spironolactone 100 mg daily, as well as furosemide oral 40 mg daily. However, w ould consider a repeat dose of IV Lasix 40 mg x1 for continued diuresis. 2. Hepatic encephalopathy. Patient is presenting with a history of hepatic encephalopathy for which he has been placed on lactulose 30 mL b.i.d. While on this regimen, he is having approximately 3-4 semisolid to liquid bowel movements per day with adequate clearing of sensorium and no episodes of di sorientation. RECOMMENDATIONS: 1. We would continue the lactulose regimen of 30 mL twice daily for treatment of his hepatic encepha lopathy with a target goal of having approximately 3-4 bowel movements per day. 2. We would avoid any constipation in this patient as it could exacerbate hepatic encephalopathy. We will continue to follow. Please call with any additional questions.
[2018-07-05] MEDS: Latanoprost 0.005% Ophth Soln 2.5 ml Bottle EA EYE SCH (21:02)
[2018-07-06 05:01] LABS: ALT (SGPT) 54 U/L (8-55); AST (SGOT) 76 U/L (5-34); Albumin 2.2 g/dL (3.5-5.0); Alkaline Phosphatase 159 U/L (40-150); Anion Gap 10 mmol/L (10-20); BUN (Urea Nitrogen) 15 mg/dL (8.4-25.7); Bilirubin, Total 1.7 mg/dL (0.2-1.2); Calc. Creatinine Clearance 155 mL/min (70-130); Calcium 7.8 mg/dL (7.8-10.44); Carbon Dioxide 26 mmol/L (22-29); Chloride 104 mmol/L (98-107); Estimated GFR-MDRD Greater than 90; Globulin 3.6 g/dL (2.4-3.5); Glucose 121 mg/dL (70-105); Potassium 3.6 mmol/L (3.5-5.1); Protein, Total 5.8 g/dL (6.0-8.3); Sodium 136 mmol/L (136-145)
[2018-07-06 05:11] LABS: #Eosinphils 0.3 thou/uL (0.0-0.7); #Lymphocytes 0.8 thou/uL (1.20-3.40); #Monocytes 0.8 thou/uL (0.11-0.59); #Neutrophils 4.1 thou/uL (1.40-6.50); %Basophils 0.2 % (0.0-1.0); %Eosinophils 4.8 % (0.0-10.0); %Lymphocytes 13.7 % (21.0-51.0); %Monocytes 12.6 % (0.0-10.0); %Neutrophils 68.7 % (42.0-75.0); Hemoglobin 12.8 g/dL (14.0-18.0); Mean Corpuscular HGB CONC 32.1 g/dL (32.0-36.0); Mean Corpuscular Hemoglobin 35.2 pg (27.0-31.0); Mean Platelet Volume 8.1 fL (7.4-10.4); Platelet Count 71 thou/uL (130-400); RBC Distribution Width 14.4 % (11.5-14.5); Red Blood Cell (RBC) Count 3.64 mill/uL (4.70-6.10)
[2018-07-06] MEDS: Furosemide 40 MG TAB PO SCH (08:12)
[2018-07-06] MEDS: Spironolactone 100 MG TAB PO SCH (08:12)
[2018-07-06] MEDS: Propranolol 10 MG TAB PO SCH ×2 (08:12→20:20)
--- NOTE | 2018-07-06 09:27 | PRG ---
DATE OF SERVICE: 07/06/2018. SUBJECTIVE: The patient is currently doing better. He says he is not at short of breath that he was . OBJECTIVE: VITAL SIGNS: Temperature is 98.1, pulse 84, respirations 20, O2 sat 96%, blood pressure 145/81. HEENT: Unremarkable. NECK: No JVD. LUNGS: Decreased breath sounds at right base, left side clear. CARDIAC: S1 and S2 regular. ABDOMEN: Distended, fluid wave present. EXTREMITIES: No edema. LABORATORY DATA: White blood cell count 6, hematocrit 40, platelet count 71. Sodium 136, potassium 3.6, BUN 15, creatinine 0.7, glucose 121, albumin 2.2. ASSESSMENT: 1. Hepatic hydrothorax. 2. Ascites. 3. Chronic hepatitis C with decompensation. PLAN: We will continue present care. Thoracentesis did not seem to be indicated at this time. Cont inue with the diuretics. Dr. Cunningham will be available this weekend if help needed.
[2018-07-06] MEDS: Brimonidine Tartrate 0.2% Ophth Soln 5 ml Bottle EA EYE SCH ×3 (10:27→20:20)
--- NOTE | 2018-07-06 12:38 | PDOC.PN ---
- Subjective Encounter Start Date: 07/06/18 Encounter Start Time: 12:30 Subjective: f/u for hepatic encephalopathy and decompensated hepatic cirrhosis. Overall -: feeling ok. Mentally clearer. - Objective Resuscitation Status: Resuscitation Status FULL:Full Resuscitation MAR Reviewed: Yes Vital Signs & Weight: Vital Signs (12 hours) Temp Pulse Resp BP Pulse Ox 07/06/18 11:10 98.3 F 78 16 125/73 96 07/06/18 08:00 96 07/06/18 07:21 98.1 F 84 20 145/81 H 96 Weight Weight 216 lb 8 oz I&O: 07/05/18 07/06/18 07/07/18 06:59 06:59 06:59 Intake Total 1380 1420 360 Balance 1380 1420 360 Result Diagrams: 07/06/18 04:05 07/06/18 04:05 Additional Labs: Accuchecks 07/06/18 07/06/18 07/05/18 11:13 04:48 19:58 POC Glucose 138 H 100 130 H 07/05/18 16:30 POC Glucose 113 H Microbiology 07/03/18 11:47 Ascites Fluid Body Fluid Culture - Preliminary Radiology Reviewed by me: Yes (Echo - EF 55%, mod MR) Phys Exam - Physical Examination Constitutional: NAD alert, mild tachypnea HEENT: PERRLA, sclera anicteric, oral pharynx no lesions Neck: no nodes, no JVD, supple, full ROM diminished in bases Respiratory: no wheezing S1, S2 Cardiovascular: RRR, no significant murmur, no rub, gallop distended, + ascites Gastrointestinal: non-tender, positive bowel sounds Musculoskeletal: pulses present, edema present Neurological: normal sensation, moves all 4 limbs Psychiatric: A&O x 3 Skin: no rash, normal turgor, cap refill <2 seconds Dx/Plan (1) Hepatic encephalopathy Code(s): K72.90 - HEPATIC FAILURE, UNSPECIFIED WITHOUT COMA Status: Acute Comment: Improved with Lactulose therapy, continue Lactulose and titrate to clinical response (2) Ascites Code(s): R18.8 - OTHER ASCITES Status: Acute Qualifiers: Ascites type: other type Qualified Code(s): R18.8 - Other ascites Comment: Hep C cirrhosis, s/p paracentesis and SBP ruled out, Spironolactone/ Lasix therapy (3) Cirrhosis Code(s): K74.60 - UNSPECIFIED CIRRHOSIS OF LIVER Status: Chronic Comment: Secondary to Hep C, see above (4) Hepatitis C Code(s): B19.20 - UNSPECIFIED VIRAL HEPATITIS C WITHOUT HEPATIC COMA Status: Acute Comment: Chronic, untreated. 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
--- NOTE | 2018-07-06 14:44 | PRG ---
DATE OF SERVICE: 07/06/2018 REASON FOR CONSULTATION: Cirrhosis, new onset ascites. SUBJECTIVE: The patient did well overnight with no acute events or problems. Today, he states that his abdominal distention is unchanged with tenderness located in the midepigastric and periumbilical regions. However, the pain when compared to previous is improved. He also states that he has been a ble to adequately take the diuretics with no difficulty getting to the bathroom and has been urinatin g for most of the day. He also states that his shortness of breath is unchanged or slightly improved over the last 24 hours. He has also had approximately 3-4 semisolid to liquid bowel movements withi n the last 24 hours with no difficulty with defecation. Upon conversing with the patient, it seems t hat his conversational dyspnea has improved, but still remains with truncated sentences due to shortn ess of breath. OBJECTIVE: VITAL SIGNS: Temperature 98.3, pulse 78, blood pressure 125/73, respiratory rate 16, satting 96% on room air. GENERAL: Patient is lying in bed in no acute distress. Mild conversational dyspnea noted. CARDIOVASCULAR: Regular rate and rhythm. PULMONARY: Mild decreased breath sounds in the bilateral lower lobes, right greater than the left, b ut otherwise clear to auscultation. ABDOMEN: Normoactive bowel sounds, soft, mild tenderness to palpation in the periumbilical region an d midepigastric. Positive shifting dullness consistent with ascites and pitting edema in the lower a bdomen consistent with anasarca. EXTREMITIES: 2+ bilateral lower extremity edema extending up to mid thigh and into the groin. LABORATORY DATA: CBC with a white blood cell count of 6, hemoglobin 12.8, hematocrit 40, platelets 7 1. Chemistry with sodium of 136, potassium 3.6, chloride 104, CO2 26, BUN 15, creatinine 0.74, gluco se 121, AST 76, ALT 54, alkaline phosphatase 159, total bilirubin 1.7, albumin 2.2. Upon review of t he paracentesis fluid; white blood cell count was 242 with 31% segmented neutrophils. The ascitic fl uid albumin content was 0.3 with a total protein of less than 1. IMAGING DATA: No current GI imaging is available for review. ASSESSMENT AND PLAN: The patient is a 58-year-old male with past medical history of glaucoma, hypert ension, diabetes, chronic hepatitis C infection (naive to treatment) and cirrhosis complicated by eso phageal varices, lower extremity edema and hepatic encephalopathy, presenting with new onset of abdom inal ascites. CIRRHOSIS: The patient is presenting with a history of cirrhosis diagnosed approximately 5 years ago , presumably secondary to chronic hepatitis C infection. Currently, he is presenting with decompensa gege disease as evidenced by the presence of esophageal varices, lower extremity edema and now new ons et ascites. At the current time, his calculated MELD score 16 with a Child-Osorio classification C ind icating severe disease. During the course of his hospitalization, his LFTs have remained fairly stab le in addition to his bilirubin and INR indicating fairly stable liver disease and no evidence of fur ther decompensation and/or hepatic failure, currently doing well with no acute events or problems wit hin the last 24-48 hours. RECOMMENDATIONS: 1. We would continue to obtain chemistries while inpatient, but can space out to every 2-3 days. 2. Once the patient is discharged, would have the patient follow up in the GI Clinic for further man agement of his cirrhosis and sequelae of cirrhosis. 3. Would consider an outpatient colonoscopy for screening for colorectal cancer once discharged, as well when seen in the outpatient clinic. ASCITES: The patient is presenting with fairly new onset of increased abdominal distention prior to admission with physical exam and imaging consistent with abdominal ascites. He underwent paracentesi s on 07/03/2018 with removal of approximately 5 liters of ascitic fluid with cytology showing white b lood cell count of 252, 31% being segmented neutrophils as well as total protein of less than 1 and f luid albumin being 0.3. At this time, his SAAG ratio is greater than 1.1 with a low ascitic fluid pr otein that is most consistent with portal hypertension from cirrhotic origin. RECOMMENDATIONS: 1. We would continue spironolactone 100 mg daily as well as furosemide 40 mg daily as part of diures is for his abdominal ascites; however, would consider repeat dose of IV Lasix 40 mg x1 for continued diuresis. 2. We would have the patient follow up in the outpatient clinic for further titration of his diureti c therapy in response to his ascites. 3. Would consider repeat paracentesis in early next week to remove an additional 5-8 liters of fluid . HEPATIC ENCEPHALOPATHY: Patient is presenting with a history of hepatic encephalopathy for which he has been placed on lactulose 30 mL b.i.d. While on this regimen, he is having approximately 3-4 semi -solid to liquid bowel movements per day with clearing of his mentation and sensorium. RECOMMENDATIONS: 1. We would continue lactulose regimen with target goal of having approximately 3-4 bowel movements per day. I would recommend titration to achieve that goal either by increasing or decreasing the nori unt of lactulose to avoid any constipation as this could exacerbate any hepatic encephalopathy. 2. We will sign off at this time. I would recommend the [facility] with [facility] for further management of his chronic liver disease. Pleas e call with any additional questions.
--- NOTE | 2018-07-06 15:45 | EKG ---
Test Reason : SOB Blood Pressure : / mmHG Vent. Rate : 096 BPM Atrial Rate : 096 BPM P-R Int : 118 ms QRS Dur : 082 ms QT Int : 358 ms P-R-T Axes : 047 040 023 degrees QTc Int : 452 ms Normal sinus rhythm Normal ECG Confirmed by YADIRA STOKES DO ([id number]), editor & co founder VAN CARR ([id number] on 07/06/2018 3:45:09 PM Referred By: Confirmed By:YADIRA STOKES DO
[2018-07-06] MEDS: Latanoprost 0.005% Ophth Soln 2.5 ml Bottle EA EYE SCH (20:20)
[2018-07-06] MEDS: diphenhydrAMINE 25 MG CAP PO PRN (20:29)
[2018-07-07 04:04] LABS: ALT (SGPT) 55 U/L (8-55); AST (SGOT) 80 U/L (5-34); Albumin 2.1 g/dL (3.5-5.0); Alkaline Phosphatase 144 U/L (40-150); Anion Gap 6 mmol/L (10-20); BUN (Urea Nitrogen) 16 mg/dL (8.4-25.7); Bilirubin, Total 1.8 mg/dL (0.2-1.2); Calc. Creatinine Clearance 166 mL/min (70-130); Calcium 7.8 mg/dL (7.8-10.44); Carbon Dioxide 27 mmol/L (22-29); Chloride 106 mmol/L (98-107); Estimated GFR-MDRD Greater than 90; Globulin 3.6 g/dL (2.4-3.5); Glucose 102 mg/dL (70-105); Potassium 3.9 mmol/L (3.5-5.1); Protein, Total 5.7 g/dL (6.0-8.3); Sodium 135 mmol/L (136-145)
[2018-07-07] MEDS: Furosemide 40 MG TAB PO SCH (08:06)
[2018-07-07] MEDS: Propranolol 10 MG TAB PO SCH ×2 (08:06→21:15)
[2018-07-07] MEDS: Spironolactone 100 MG TAB PO SCH (08:06)
[2018-07-07] MEDS: Brimonidine Tartrate 0.2% Ophth Soln 5 ml Bottle EA EYE SCH ×3 (08:07→21:15)
[2018-07-07] MEDS: diphenhydrAMINE 25 MG CAP PO PRN ×2 (08:13→21:15)
--- NOTE | 2018-07-07 13:57 | PDOC.PN ---
- Subjective Encounter Start Date: 07/07/18 Encounter Start Time: 10:20 Pt seen for followup re: hepatic encephalopathy. Denies chest pain. Reports shortness of breath with exertion. - Objective Resuscitation Status: Resuscitation Status FULL:Full Resuscitation MAR Reviewed: Yes Vital Signs & Weight: Vital Signs (12 hours) Temp Pulse Resp BP Pulse Ox 07/07/18 08:13 98.1 F 78 18 119/74 95 07/07/18 08:00 98 07/07/18 04:00 98.1 F 76 16 95/60 96 Weight Weight 216 lb 8 oz I&O: 07/06/18 07/07/18 07/08/18 06:59 06:59 06:59 Intake Total 1420 1190 Balance 1420 1190 Result Diagrams: 07/06/18 04:05 07/07/18 03:31 Additional Labs: Accuchecks 07/07/18 07/06/18 07/06/18 04:06 21:19 15:52 POC Glucose 88 110 119 H labs reviewed by me Phys Exam - Physical Examination Constitutional: NAD HEENT: moist MMs Neck: supple Respiratory: clear to auscultation bilateral Cardiovascular: RRR Gastrointestinal: soft, positive bowel sounds distended Neurological: moves all 4 limbs Psychiatric: normal affect Dx/Plan (1) Hepatic encephalopathy Code(s): K72.90 - HEPATIC FAILURE, UNSPECIFIED WITHOUT COMA Status: Acute Comment: continue Lactulose and titrate to clinical response (2) Ascites Code(s): R18.8 - OTHER ASCITES Status: Acute Qualifiers: Ascites type: other type Qualified Code(s): R18.8 - Other ascites Comment: continue Spironolactone/Lasix therapy; may need repeat paracentesis (3) Hepatitis C Code(s): B19.20 - UNSPECIFIED VIRAL HEPATITIS C WITHOUT HEPATIC COMA Status: Chronic Comment: Chronic, untreated. - Plan * . Review of Systems - Review of Systems Respiratory: SOB with Excertion. negative: Cough, Shortness of Breath, Pleuritic Pain, Wheezing Cardiovascular: negative: chest pain, palpitations, orthopnea, paroxysmal nocturnal dyspnea, edema, light headedness - Medications/Allergies Allergies/Adverse Reactions: Allergies Allergy/AdvReac Type Severity Reaction Status Date / Time No Known Drug Intolerances Allergy Verified 07/03/18 03:50 Medications: Current Medications Brimonidine Tartrate (Alphagan 0.2% Ophth Soln) 1 drop [facility] TID [facility] Last Admin: 07/07/18 08:07 Dose: 1 drop Calcium Carbonate (Tums) 1,000 mg PO Q4H PRN PRN Reason: Heartburn or Indigestion Dextrose/Water (Dextrose 50%) 25 gm SLOW IVP PRN PRN PRN Reason: Hypoglycemia Diphenhydramine HCl (Benadryl) 25 mg PO Q6H PRN PRN Reason: Itching & Insomnia Last Admin: 07/07/18 08:13 Dose: 25 mg Furosemide (Lasix) 40 mg PO DAILY [facility] Last Admin: 07/07/18 08:06 Dose: 40 mg Glucagon (Glucagon) 1 mg IM PRN PRN PRN Reason: Hypoglycemia Hydralazine HCl (Apresoline) 10 mg SLOW IVP Q4H PRN PRN Reason: SBP > 180 and HR < 70 Dextrose/Water (D5w) 1,000 mls @ 0 mls/hr IV .Q0M PRN PRN Reason: Hypoglycemia Insulin Human Lispro (Humalog) 0 units SC .MILD SLIDING SCALE PRN PRN Reason: Mild Correctional Scale Lactulose (Lactulose) 20 gm PO BID [facility] Last Admin: 07/07/18 08:07 Dose: 20 gm Latanoprost (Xalatan 0.005% Ophth Soln) 1 drop EA EYE HS [facility] Last Admin: 07/06/18 20:20 Dose: 1 drop Levofloxacin (Levaquin) 500 mg PO 0600 [facility] Last Admin: 07/07/18 05:30 Dose: 500 mg Ondansetron HCl (Zofran Odt) 4 mg PO Q6H PRN PRN Reason: Nausea/Vomiting Ondansetron HCl (Zofran) 4 mg IVP Q6H PRN PRN Reason: Nausea/Vomiting Last Admin: 07/05/18 04:56 Dose: 4 mg Pantoprazole Sodium (Protonix) 40 mg PO DAILY [facility] Last Admin: 07/07/18 08:07 Dose: 40 mg Propranolol HCl (Inderal) 10 mg PO BID [facility] Last Admin: 07/07/18 08:06 Dose: Not Given Sodium Chloride (Flush - Normal Saline) 10 ml IVF PRN PRN PRN Reason: Saline Flush Last Admin: 07/06/18 08:12 Dose: 10 ml Spironolactone (Aldactone) 100 mg PO QAM-[facility] Last Admin: 07/07/18 08:06 Dose: 100 mg
[2018-07-07] MEDS: Latanoprost 0.005% Ophth Soln 2.5 ml Bottle EA EYE SCH (21:15)
[2018-07-08] MEDS: diphenhydrAMINE 25 MG CAP PO PRN ×2 (08:33→21:35)
[2018-07-08] MEDS: Spironolactone 100 MG TAB PO SCH (08:33)
[2018-07-08] MEDS: Brimonidine Tartrate 0.2% Ophth Soln 5 ml Bottle EA EYE SCH ×3 (08:33→21:19)
[2018-07-08] MEDS: Propranolol 10 MG TAB PO SCH ×2 (08:33→21:23)
[2018-07-08] MEDS: Furosemide 40 MG TAB PO SCH (08:33)
--- NOTE | 2018-07-08 13:22 | PDOC.PN ---
- Subjective Encounter Start Date: 07/08/18 Encounter Start Time: 08:20 Pt seen for followup re: hepatic encephalopathy. Reports SOBOE. No fevers or chills. - Objective Resuscitation Status: Resuscitation Status FULL:Full Resuscitation MAR Reviewed: Yes Vital Signs & Weight: Vital Signs (12 hours) Temp Pulse Resp BP Pulse Ox 07/08/18 08:00 98.0 F 79 16 103/64 98 07/08/18 05:00 98.2 F 82 16 122/77 98 07/08/18 01:21 98.2 F 83 22 H 125/77 99 Weight Weight 216 lb 8 oz I&O: 07/07/18 07/08/18 07/09/18 06:59 06:59 06:59 Intake Total 1190 600 Output Total 300 Balance 1190 300 Result Diagrams: 07/06/18 04:05 07/07/18 03:31 Additional Labs: Accuchecks 07/08/18 07/08/18 07/07/18 11:31 05:36 19:43 POC Glucose 109 109 110 07/07/18 07/07/18 16:39 13:14 POC Glucose 92 161 H labs reviewed by me Phys Exam - Physical Examination Constitutional: NAD HEENT: moist MMs Neck: supple Respiratory: clear to auscultation bilateral Cardiovascular: RRR Gastrointestinal: positive bowel sounds distention Neurological: moves all 4 limbs Psychiatric: normal affect Dx/Plan (1) Hepatic encephalopathy Code(s): K72.90 - HEPATIC FAILURE, UNSPECIFIED WITHOUT COMA Status: Acute Comment: continue Lactulose (2) Ascites Code(s): R18.8 - OTHER ASCITES Status: Acute Qualifiers: Ascites type: other type Qualified Code(s): R18.8 - Other ascites Comment: continue Spironolactone/Lasix, plan for paracentesis tomorrow (3) Hepatitis C Code(s): B19.20 - UNSPECIFIED VIRAL HEPATITIS C WITHOUT HEPATIC COMA Status: Chronic Comment: Chronic - Plan * . Review of Systems - Review of Systems Respiratory: Shortness of Breath. negative: Cough, SOB with Excertion, Pleuritic Pain, Wheezing Cardiovascular: negative: chest pain, palpitations, orthopnea, paroxysmal nocturnal dyspnea, edema, light headedness - Medications/Allergies Allergies/Adverse Reactions: Allergies Allergy/AdvReac Type Severity Reaction Status Date / Time No Known Drug Intolerances Allergy Verified 07/03/18 03:50 Medications: Current Medications Brimonidine Tartrate (Alphagan 0.2% Ophth Soln) 1 drop EA EYE TID [facility] Last Admin: 07/08/18 08:33 Dose: 1 drop Calcium Carbonate (Tums) 1,000 mg PO Q4H PRN PRN Reason: Heartburn or Indigestion Dextrose/Water (Dextrose 50%) 25 gm SLOW IVP PRN PRN PRN Reason: Hypoglycemia Diphenhydramine HCl (Benadryl) 25 mg PO Q6H PRN PRN Reason: Itching & Insomnia Last Admin: 07/08/18 08:33 Dose: 25 mg Furosemide (Lasix) 40 mg PO DAILY [facility] Last Admin: 07/08/18 08:33 Dose: 40 mg Glucagon (Glucagon) 1 mg IM PRN PRN PRN Reason: Hypoglycemia Hydralazine HCl (Apresoline) 10 mg SLOW IVP Q4H PRN PRN Reason: SBP > 180 and HR < 70 Dextrose/Water (D5w) 1,000 mls @ 0 mls/hr IV .Q0M PRN PRN Reason: Hypoglycemia Insulin Human Lispro (Humalog) 0 units SC .MILD SLIDING SCALE PRN PRN Reason: Mild Correctional Scale Lactulose (Lactulose) 20 gm PO BID [facility] Last Admin: 07/08/18 08:33 Dose: Not Given Latanoprost (Xalatan 0.005% Ophth Soln) 1 drop EA EYE HS [facility] Last Admin: 07/07/18 21:15 Dose: 1 drop Levofloxacin (Levaquin) 500 mg PO 0600 [facility] Last Admin: 07/08/18 05:15 Dose: 500 mg Ondansetron HCl (Zofran Odt) 4 mg PO Q6H PRN PRN Reason: Nausea/Vomiting Ondansetron HCl (Zofran) 4 mg IVP Q6H PRN PRN Reason: Nausea/Vomiting Last Admin: 07/05/18 04:56 Dose: 4 mg Pantoprazole Sodium (Protonix) 40 mg PO DAILY [facility] Last Admin: 07/08/18 08:33 Dose: 40 mg Propranolol HCl (Inderal) 10 mg PO BID [facility] Last Admin: 07/08/18 08:33 Dose: 10 mg Sodium Chloride (Flush - Normal Saline) 10 ml IVF PRN PRN PRN Reason: Saline Flush Last Admin: 07/06/18 08:12 Dose: 10 ml Spironolactone (Aldactone) 100 mg PO [facility] Last Admin: 07/08/18 08:33 Dose: 100 mg
[2018-07-08] MEDS: Latanoprost 0.005% Ophth Soln 2.5 ml Bottle EA EYE SCH (21:22)
[2018-07-09] MEDS ORDERED: Lidocaine 1% PF 5 ML VIAL ONE (08:17)
[2018-07-09] MEDS ORDERED: Sodium Bicarbonate 2.5 MEQ/5 ML VIAL ONE (08:17)
--- NOTE | 2018-07-09 10:16 | ULT ---
ULTRASOUND GUIDED PARACENTESIS: HISTORY: Ascites. COMPARISON: 07/03/2018 FINDINGS: Successful ultrasound-guided paracentesis. A total of 3300 mL of yellow-colored ascites was aspirate d. The patient tolerated the procedure well. No immediate or post procedure complications. TECHNIQUE: Consent obtained to perform an ultrasound guided paracentesis. The patient's right lower quadrant wa s deemed appropriate. The skin was prepped and draped in the sterile fashion, and 1% Lidocaine, buff ered with sodium bicarbonate, was used for local anesthesia. Under ultrasound guidance, a 5 German, 7 cm Yueh catheter was advanced into the peritoneal space. Via vacuum bottles, a total of 3300 mL of yellow-colored ascites was aspirated. The patient tolerated the procedure well. No immediate or po st procedure complication. IMPRESSION: Technically successful ultrasound guided paracentesis. POS: [facility]
[2018-07-09] MEDS: Spironolactone 100 MG TAB PO SCH (10:22)
[2018-07-09] MEDS: Furosemide 40 MG TAB PO SCH (10:22)
[2018-07-09] MEDS: Brimonidine Tartrate 0.2% Ophth Soln 5 ml Bottle EA EYE SCH ×3 (10:23→21:46)
[2018-07-09] MEDS: diphenhydrAMINE 25 MG CAP PO PRN ×2 (10:25→22:40)
[2018-07-09] MEDS: Propranolol 10 MG TAB PO SCH ×2 (10:25→21:45)
[2018-07-09] MEDS ORDERED: Albumin 25% 25 GM/100 ML BOT IVPB SCH (16:44)
--- NOTE | 2018-07-09 16:47 | PDOC.PN ---
- Subjective Encounter Start Date: 07/09/18 Encounter Start Time: 16:00 Pt seen for followup re: hepatic encephalopathy. Had paracentesis today, feels better. - Objective Resuscitation Status: Resuscitation Status FULL:Full Resuscitation MAR Reviewed: Yes Vital Signs & Weight: Vital Signs (12 hours) Temp Pulse Resp BP Pulse Ox 07/09/18 12:34 98.1 F 81 20 99/62 100 07/09/18 10:10 98 F 88 22 H 120/78 98 07/09/18 08:37 98.1 F 84 18 117/77 97 Weight Weight 216 lb 8 oz I&O: 07/08/18 07/09/18 07/10/18 06:59 06:59 06:59 Intake Total 600 1210 Output Total 300 Balance 300 1210 Result Diagrams: 07/06/18 04:05 07/07/18 03:31 Additional Labs: Accuchecks 07/09/18 07/09/18 07/09/18 15:46 11:53 05:15 POC Glucose 84 70 78 07/08/18 07/08/18 19:56 17:11 POC Glucose 113 H 117 H labs reviewed by me Phys Exam - Physical Examination Constitutional: NAD HEENT: moist MMs Neck: supple Respiratory: no wheezing, no rales Cardiovascular: RRR Gastrointestinal: soft, non-tender, positive bowel sounds distention Neurological: moves all 4 limbs Psychiatric: normal affect Dx/Plan (1) Hepatic encephalopathy Code(s): K72.90 - HEPATIC FAILURE, UNSPECIFIED WITHOUT COMA Status: Acute Comment: Improved, continue Lactulose (2) Ascites Code(s): R18.8 - OTHER ASCITES Status: Acute Qualifiers: Ascites type: other type Qualified Code(s): R18.8 - Other ascites Comment: continue Spironolactone/Lasix, s/p paracentesis today (3) Hepatitis C Code(s): B19.20 - UNSPECIFIED VIRAL HEPATITIS C WITHOUT HEPATIC COMA Status: Chronic Comment: Chronic - Plan * . Review of Systems - Review of Systems Cardiovascular: negative: chest pain, palpitations, orthopnea, paroxysmal nocturnal dyspnea, edema, light headedness Gastrointestinal: negative: Nausea, Vomiting, Abdominal Pain, Diarrhea, Constipation, Melena, Hematochezia - Medications/Allergies Allergies/Adverse Reactions: Allergies Allergy/AdvReac Type Severity Reaction Status Date / Time No Known Drug Intolerances Allergy Verified 07/03/18 03:50 Medications: Current Medications Albumin Human (Albumin 25%) 25 gm IVPB ONE ONE Stop: 07/09/18 16:45 Brimonidine Tartrate (Alphagan 0.2% Ophth Soln) 1 drop EA EYE TID [facility] Last Admin: 07/09/18 15:50 Dose: 1 drop Calcium Carbonate (Tums) 1,000 mg PO Q4H PRN PRN Reason: Heartburn or Indigestion Dextrose/Water (Dextrose 50%) 25 gm SLOW IVP PRN PRN PRN Reason: Hypoglycemia Diphenhydramine HCl (Benadryl) 25 mg PO Q6H PRN PRN Reason: Itching & Insomnia Last Admin: 07/09/18 10:25 Dose: 25 mg Furosemide (Lasix) 40 mg PO DAILY [facility] Last Admin: 07/09/18 10:22 Dose: 40 mg Glucagon (Glucagon) 1 mg IM PRN PRN PRN Reason: Hypoglycemia Hydralazine HCl (Apresoline) 10 mg SLOW IVP Q4H PRN PRN Reason: SBP > 180 and HR < 70 Dextrose/Water (D5w) 1,000 mls @ 0 mls/hr IV .Q0M PRN PRN Reason: Hypoglycemia Insulin Human Lispro (Humalog) 0 units SC .MILD SLIDING SCALE PRN PRN Reason: Mild Correctional Scale Lactulose (Lactulose) 20 gm PO BID [facility] Last Admin: 07/09/18 10:21 Dose: Not Given Latanoprost (Xalatan 0.005% Ophth Soln) 1 drop EA EYE HS [facility] Last Admin: 07/08/18 21:22 Dose: 1 drop Levofloxacin (Levaquin) 500 mg PO 0600 [facility] Last Admin: 07/09/18 05:53 Dose: 500 mg Ondansetron HCl (Zofran Odt) 4 mg PO Q6H PRN PRN Reason: Nausea/Vomiting Ondansetron HCl (Zofran) 4 mg IVP Q6H PRN PRN Reason: Nausea/Vomiting Last Admin: 07/05/18 04:56 Dose: 4 mg Pantoprazole Sodium (Protonix) 40 mg PO DAILY [facility] Last Admin: 07/09/18 10:22 Dose: 40 mg Propranolol HCl (Inderal) 10 mg PO BID [facility] Last Admin: 07/09/18 10:25 Dose: 10 mg Sodium Chloride (Flush - Normal Saline) 10 ml IVF PRN PRN PRN Reason: Saline Flush Last Admin: 07/06/18 08:12 Dose: 10 ml Spironolactone (Aldactone) 100 mg PO QAM-WM [facility] Last Admin: 07/09/18 10:22 Dose: 100 mg
[2018-07-09] MEDS: Latanoprost 0.005% Ophth Soln 2.5 ml Bottle EA EYE SCH (21:45)
[2018-07-10 05:02] LABS: INR-International Normal Ratio 1.4; Prothrombin Time 17.5 SEC (12.0-14.7)
[2018-07-10 05:05] LABS: #Eosinphils 0.1 thou/uL (0.0-0.7); #Lymphocytes 0.6 thou/uL (1.20-3.40); #Monocytes 0.6 thou/uL (0.11-0.59); %Basophils 0.4 % (0.0-1.0); %Eosinophils 3.4 % (0.0-10.0); %Lymphocytes 13.8 % (21.0-51.0); %Monocytes 13.2 % (0.0-10.0); %Neutrophils 69.3 % (42.0-75.0); Hemoglobin 11.6 g/dL (14.0-18.0); Mean Corpuscular HGB CONC 33.1 g/dL (32.0-36.0); Mean Corpuscular Hemoglobin 36.5 pg (27.0-31.0); Mean Platelet Volume 8.4 fL (7.4-10.4); Platelet Count 47 thou/uL (130-400); Red Blood Cell (RBC) Count 3.19 mill/uL (4.70-6.10); White Blood Cell (WBC) Count 4.3 thou/uL (4.8-10.8)
[2018-07-10 05:12] LABS: ALT (SGPT) 55 U/L (8-55); AST (SGOT) 89 U/L (5-34); Albumin 2.4 g/dL (3.5-5.0); Alkaline Phosphatase 119 U/L (40-150); Anion Gap 6 mmol/L (10-20); BUN (Urea Nitrogen) 15 mg/dL (8.4-25.7); Bilirubin, Total 2.1 mg/dL (0.2-1.2); Calc. Creatinine Clearance 161 mL/min (70-130); Carbon Dioxide 27 mmol/L (22-29); Chloride 106 mmol/L (98-107); Estimated GFR-MDRD Greater than 90; Globulin 3.4 g/dL (2.4-3.5); Glucose 136 mg/dL (70-105); Potassium 4.3 mmol/L (3.5-5.1); Protein, Total 5.8 g/dL (6.0-8.3); Sodium 135 mmol/L (136-145)
[2018-07-10] MEDS: Brimonidine Tartrate 0.2% Ophth Soln 5 ml Bottle EA EYE SCH ×3 (08:44→20:44)
[2018-07-10] MEDS: Spironolactone 100 MG TAB PO SCH (08:44)
[2018-07-10] MEDS: Furosemide 40 MG TAB PO SCH (08:44)
[2018-07-10] MEDS: Propranolol 10 MG TAB PO SCH ×2 (08:44→20:43)
[2018-07-10] MEDS: diphenhydrAMINE 25 MG CAP PO PRN ×2 (08:48→20:43)
[2018-07-10] MEDS ORDERED: Albumin 25% 25 GM/100 ML BOT IVPB SCH (11:00)
--- NOTE | 2018-07-10 15:05 | PDOC.PN ---
- Subjective Encounter Start Date: 07/10/18 Encounter Start Time: 09:20 Pt seen for followup re: hepatic encephalopathy. Feels better today, but having difficulty urinating. - Objective Resuscitation Status: Resuscitation Status FULL:Full Resuscitation MAR Reviewed: Yes Vital Signs & Weight: Vital Signs (12 hours) Temp Pulse Resp BP Pulse Ox 07/10/18 08:00 96 07/10/18 07:48 98.5 F 81 18 117/67 96 Weight Weight 216 lb 8 oz I&O: 07/09/18 07/10/18 07/11/18 06:59 06:59 06:59 Intake Total 1210 500 Output Total 125 Balance 1210 375 Result Diagrams: 07/10/18 04:19 07/10/18 04:19 Additional Labs: Accuchecks 07/10/18 07/10/18 07/10/18 11:25 06:30 02:45 POC Glucose 117 H 107 104 07/09/18 07/09/18 22:01 15:46 POC Glucose 136 H 84 Labs reviewed by me Phys Exam - Physical Examination Constitutional: NAD HEENT: moist MMs Neck: supple Respiratory: clear to auscultation bilateral Cardiovascular: RRR Gastrointestinal: soft Neurological: moves all 4 limbs Psychiatric: normal affect Deviation from normal: penile swelling Dx/Plan (1) Hepatic encephalopathy Code(s): K72.90 - HEPATIC FAILURE, UNSPECIFIED WITHOUT COMA Status: Acute Comment: Improved, will continue Lactulose (2) Ascites Code(s): R18.8 - OTHER ASCITES Status: Acute Qualifiers: Ascites type: other type Qualified Code(s): R18.8 - Other ascites Comment: Will administer albumin. s/p paracentesis yesterday (3) Hepatitis C Code(s): B19.20 - UNSPECIFIED VIRAL HEPATITIS C WITHOUT HEPATIC COMA Status: Chronic Comment: Chronic - Plan * . await urology opinion re: penile swelling Review of Systems - Review of Systems Respiratory: negative: Cough, Dry, Shortness of Breath, Hemoptysis, SOB with Excertion, Pleuritic Pain, Sputum, Wheezing Cardiovascular: negative: chest pain, palpitations, orthopnea, paroxysmal nocturnal dyspnea, edema, light headedness Genitourinary: Other (penile swelling) - Medications/Allergies Allergies/Adverse Reactions: Allergies Allergy/AdvReac Type Severity Reaction Status Date / Time No Known Drug Intolerances Allergy Verified 07/03/18 03:50 Medications: Current Medications Brimonidine Tartrate (Alphagan 0.2% Ophth Soln) 1 drop EA EYE TID [facility] Last Admin: 07/10/18 14:36 Dose: 1 drop Calcium Carbonate (Tums) 1,000 mg PO Q4H PRN PRN Reason: Heartburn or Indigestion Dextrose/Water (Dextrose 50%) 25 gm SLOW IVP PRN PRN PRN Reason: Hypoglycemia Diphenhydramine HCl (Benadryl) 25 mg PO Q6H PRN PRN Reason: Itching & Insomnia Last Admin: 07/10/18 08:48 Dose: 25 mg Furosemide (Lasix) 40 mg PO DAILY [facility] Last Admin: 07/10/18 08:44 Dose: 40 mg Glucagon (Glucagon) 1 mg IM PRN PRN PRN Reason: Hypoglycemia Hydralazine HCl (Apresoline) 10 mg SLOW IVP Q4H PRN PRN Reason: SBP > 180 and HR < 70 Dextrose/Water (D5w) 1,000 mls @ 0 mls/hr IV .Q0M PRN PRN Reason: Hypoglycemia Insulin Human Lispro (Humalog) 0 units SC .MILD SLIDING SCALE PRN PRN Reason: Mild Correctional Scale Lactulose (Lactulose) 20 gm PO BID [facility] Last Admin: 07/10/18 08:43 Dose: Not Given Latanoprost (Xalatan 0.005% Ophth Soln) 1 drop EA EYE HS [facility] Last Admin: 07/09/18 21:45 Dose: 1 drop Levofloxacin (Levaquin) 500 mg PO 0600 [facility] Last Admin: 07/10/18 06:06 Dose: 500 mg Ondansetron HCl (Zofran Odt) 4 mg PO Q6H PRN PRN Reason: Nausea/Vomiting Ondansetron HCl (Zofran) 4 mg IVP Q6H PRN PRN Reason: Nausea/Vomiting Last Admin: 07/05/18 04:56 Dose: 4 mg Pantoprazole Sodium (Protonix) 40 mg PO DAILY [facility] Last Admin: 07/10/18 08:44 Dose: 40 mg Propranolol HCl (Inderal) 10 mg PO BID [facility] Last Admin: 07/10/18 08:44 Dose: 10 mg Sodium Chloride (Flush - Normal Saline) 10 ml IVF PRN PRN PRN Reason: Saline Flush Last Admin: 07/06/18 08:12 Dose: 10 ml Spironolactone (Aldactone) 100 mg PO [facility] Last Admin: 07/10/18 08:44 Dose: 100 mg
[2018-07-10] MEDS: Latanoprost 0.005% Ophth Soln 2.5 ml Bottle EA EYE SCH (20:44)
[2018-07-11 04:42] LABS: #Eosinphils 0.1 thou/uL (0.0-0.7); #Lymphocytes 0.7 thou/uL (1.20-3.40); #Monocytes 0.4 thou/uL (0.11-0.59); #Neutrophils 1.8 thou/uL (1.40-6.50); %Basophils 0.4 % (0.0-1.0); %Eosinophils 3.3 % (0.0-10.0); %Lymphocytes 22.8 % (21.0-51.0); %Monocytes 13.1 % (0.0-10.0); %Neutrophils 60.5 % (42.0-75.0); Hemoglobin 11.3 g/dL (14.0-18.0); Mean Corpuscular Hemoglobin 36.7 pg (27.0-31.0); Mean Platelet Volume 9.2 fL (7.4-10.4); Platelet Count 38 thou/uL (130-400); RBC Distribution Width 13.8 % (11.5-14.5); Red Blood Cell (RBC) Count 3.08 mill/uL (4.70-6.10)
[2018-07-11 05:15] LABS: ALT (SGPT) 57 U/L (8-55); AST (SGOT) 95 U/L (5-34); Albumin 2.6 g/dL (3.5-5.0); Alkaline Phosphatase 122 U/L (40-150); Anion Gap 5 mmol/L (10-20); BUN (Urea Nitrogen) 13 mg/dL (8.4-25.7); Bilirubin, Total 2.1 mg/dL (0.2-1.2); Calc. Creatinine Clearance 168 mL/min (70-130); Calcium 8.1 mg/dL (7.8-10.44); Carbon Dioxide 27 mmol/L (22-29); Chloride 106 mmol/L (98-107); Estimated GFR-MDRD Greater than 90; Globulin 3.2 g/dL (2.4-3.5); Glucose 85 mg/dL (70-105); Potassium 4.3 mmol/L (3.5-5.1); Protein, Total 5.8 g/dL (6.0-8.3); Sodium 134 mmol/L (136-145)
[2018-07-11] MEDS: Furosemide 40 MG TAB PO SCH (07:37)
[2018-07-11] MEDS: Propranolol 10 MG TAB PO SCH ×2 (07:37→20:31)
[2018-07-11] MEDS: Spironolactone 100 MG TAB PO SCH (07:37)
[2018-07-11] MEDS: diphenhydrAMINE 25 MG CAP PO PRN ×2 (07:37→20:32)
[2018-07-11] MEDS: Brimonidine Tartrate 0.2% Ophth Soln 5 ml Bottle EA EYE SCH ×3 (07:42→20:27)
[2018-07-11] MEDS ORDERED: Tamsulosin HCl 0.4 MG CAP PO SCH (10:15)
--- NOTE | 2018-07-11 13:39 | ULT ---
RENAL SONOGRAM: History: Urinary retention. FINDINGS: Right kidney is 10.5 cm and the left is 12.1 cm. Each has a normal appearance without evidence of mas s, stone, or hydronephrosis. Free fluid is seen throughout the abdomen. Urinary bladder shows no focal abnormalities. Post void volume measured at 105 cc. IMPRESSION: 1. Moderate post void residual urinary bladder. 2. No evidence of upper urinary tract obstruction. 3. Free fluid throughout the abdomen. POS: JERONIMO
--- NOTE | 2018-07-11 15:03 | PDOC.PN ---
- Subjective Encounter Start Date: 07/11/18 Encounter Start Time: 08:20 Pt seen for followup re: hepatic encephalopathy. c/o ongoing difficulty urinating. - Objective Resuscitation Status: Resuscitation Status FULL:Full Resuscitation MAR Reviewed: Yes Vital Signs & Weight: Vital Signs (12 hours) Temp Pulse Resp BP Pulse Ox 07/11/18 07:35 98 F 78 20 113/66 96 07/11/18 04:00 98 F 70 16 105/59 L 99 Weight Weight 216 lb 8 oz I&O: 07/10/18 07/11/18 07/12/18 06:59 06:59 06:59 Intake Total 500 1340 Output Total 125 280 Balance 375 1060 Result Diagrams: 07/11/18 04:01 07/11/18 04:01 Additional Labs: Accuchecks 07/11/18 07/11/18 07/10/18 11:07 05:34 19:48 POC Glucose 107 72 121 H 07/10/18 15:56 POC Glucose 111 H Phys Exam - Physical Examination Obesity HEENT: moist MMs Neck: supple Respiratory: clear to auscultation bilateral Cardiovascular: RRR Gastrointestinal: soft penile edema Neurological: moves all 4 limbs Psychiatric: normal affect Dx/Plan (1) Hepatic encephalopathy Code(s): K72.90 - HEPATIC FAILURE, UNSPECIFIED WITHOUT COMA Status: Acute Comment: continue Lactulose (2) Ascites Code(s): R18.8 - OTHER ASCITES Status: Acute Qualifiers: Ascites type: other type Qualified Code(s): R18.8 - Other ascites Comment: Improved after paracentesis (3) Hepatitis C Code(s): B19.20 - UNSPECIFIED VIRAL HEPATITIS C WITHOUT HEPATIC COMA Status: Chronic Comment: Chronic - Plan * . awaiting urology input Review of Systems - Review of Systems Respiratory: negative: Cough, Shortness of Breath, SOB with Excertion, Pleuritic Pain, Wheezing Cardiovascular: negative: chest pain, palpitations, orthopnea, paroxysmal nocturnal dyspnea, edema, light headedness - Medications/Allergies Allergies/Adverse Reactions: Allergies Allergy/AdvReac Type Severity Reaction Status Date / Time No Known Drug Intolerances Allergy Verified 07/03/18 03:50 Medications: Current Medications Brimonidine Tartrate (Alphagan 0.2% Ophth Soln) 1 drop EA EYE TID [facility] Last Admin: 07/11/18 14:35 Dose: 1 drop Calcium Carbonate (Tums) 1,000 mg PO Q4H PRN PRN Reason: Heartburn or Indigestion Dextrose/Water (Dextrose 50%) 25 gm SLOW IVP PRN PRN PRN Reason: Hypoglycemia Diphenhydramine HCl (Benadryl) 25 mg PO Q6H PRN PRN Reason: Itching & Insomnia Last Admin: 07/11/18 07:37 Dose: 25 mg Furosemide (Lasix) 40 mg PO DAILY [facility] Last Admin: 07/11/18 07:37 Dose: 40 mg Glucagon (Glucagon) 1 mg IM PRN PRN PRN Reason: Hypoglycemia Hydralazine HCl (Apresoline) 10 mg SLOW IVP Q4H PRN PRN Reason: SBP > 180 and HR < 70 Dextrose/Water (D5w) 1,000 mls @ 0 mls/hr IV .Q0M PRN PRN Reason: Hypoglycemia Insulin Human Lispro (Humalog) 0 units SC .MILD SLIDING SCALE PRN PRN Reason: Mild Correctional Scale Lactulose (Lactulose) 20 gm PO BID [facility] Last Admin: 07/11/18 07:38 Dose: 20 gm Latanoprost (Xalatan 0.005% Ophth Soln) 1 drop EA EYE HS [facility] Last Admin: 07/10/18 20:44 Dose: 1 drop Levofloxacin (Levaquin) 500 mg PO 0600 [facility] Last Admin: 07/11/18 05:06 Dose: 500 mg Ondansetron HCl (Zofran Odt) 4 mg PO Q6H PRN PRN Reason: Nausea/Vomiting Ondansetron HCl (Zofran) 4 mg IVP Q6H PRN PRN Reason: Nausea/Vomiting Last Admin: 07/05/18 04:56 Dose: 4 mg Pantoprazole Sodium (Protonix) 40 mg PO DAILY [facility] Last Admin: 07/11/18 07:37 Dose: 40 mg Propranolol HCl (Inderal) 10 mg PO BID [facility] Last Admin: 07/11/18 07:37 Dose: 10 mg Sodium Chloride (Flush - Normal Saline) 10 ml IVF PRN PRN PRN Reason: Saline Flush Last Admin: 07/06/18 08:12 Dose: 10 ml Spironolactone (Aldactone) 100 mg PO QA-[facility] Last Admin: 07/11/18 07:37 Dose: 100 mg Tamsulosin HCl (Flomax) 0.4 mg PO DAILY [facility]
--- NOTE | 2018-07-11 15:11 | PQF ---
JAMESSHANIKAJanes MERRILLANKITA [id number] CLINICAL DOCUMENTATION IMPROVEMENT CLARIFICATION FORM: ICD-10 Updated PLEASE DO AN ADDENDUM TO THE PROGRESS NOTE WITH ANY DOCUMENTATION UPDATES OR ADDITIONS AND CARRY THROUGH TO DC SUMMARY. THANK YOU. DATE: 07-11-18 ATTN: DR. MERRILL Please exercise your independent, professional judgment in responding to the clarification form. Clinical indicators are provided on the bottom of this form for your review Please check appropriate box(s) to clarify if the following diagnosis has been ruled in or ruled out: PNEUMONIA [ ] Ruled in diagnosis [ ] Continue to treat [ ] Resolved [ X ] Ruled out diagnosis [ ] Cannot rule out diagnosis [ ] Other diagnosis [ ] Unable to determine In addition, please specify: Present on Admission (POA): [ ] Yes [ ] No [ ] Unable to determine For continuity of documentation, please document condition throughout progress notes and discharge summary. Thank You. CLINICAL INDICATORS - SIGNS / SYMPTOMS / LABS 07-02 CXR: PULMONARY VASCULAR CONGESTION AND PERIHILAR AIRSPACE OPACITY. SMALL BILATERAL PLEURAL EFFUSIONS. VOLUME OVERLOAD AND CHF PNA - placed on Levaquin for coverage: 07-03 H&P (RED) PNA - Left on Levaquin; Borderline Encephalopathic : 07-03 (JAVI) ANTIBIOTIC ADMINISTRATION FOR HIS BILATERAL PLEURAL EFFUSIONS AND POSSIBLE PNA IS NOT UNREASONABLE. 07-03 (KAILEY) RISK FACTORS 07-03 (RED) INMATE - INCARCERATED FOR PAST 5 YEARS 07-03 (JAVI): SOB SECONDARY TO ASCITES AND PLEURAL EFFUSION TREATMENTS MAR: UNASYN IV 07-03 LEVAQUIN IV 07-03/ 07-04/ 07-05/ 07-06 LEVAQUIN PO 07-07 TO PRESENT Thank you, Dasha (This form is maintained as a part of the permanent medical record) 2014 [employer] All Rights Reserved Dasha Gonzalez RN, BS [email or web address] [facility]
[2018-07-11] MEDS ORDERED: Albumin 25% 25 GM/100 ML BOT IVPB SCH (15:15)
[2018-07-11] MEDS: Latanoprost 0.005% Ophth Soln 2.5 ml Bottle EA EYE SCH (20:32)
[2018-07-12 05:11] LABS: #Eosinphils 0.1 thou/uL (0.0-0.7); #Lymphocytes 0.5 thou/uL (1.20-3.40); #Monocytes 0.3 thou/uL (0.11-0.59); #Neutrophils 1.3 thou/uL (1.40-6.50); %Basophils 0.6 % (0.0-1.0); %Eosinophils 3.3 % (0.0-10.0); %Lymphocytes 22.7 % (21.0-51.0); %Monocytes 13.6 % (0.0-10.0); %Neutrophils 59.8 % (42.0-75.0); Hemoglobin 10.7 g/dL (14.0-18.0); Mean Corpuscular HGB CONC 33.3 g/dL (32.0-36.0); Mean Corpuscular Hemoglobin 36.3 pg (27.0-31.0); Mean Platelet Volume 9.5 fL (7.4-10.4); Platelet Count 34 thou/uL (130-400); RBC Distribution Width 13.7 % (11.5-14.5); Red Blood Cell (RBC) Count 2.95 mill/uL (4.70-6.10); White Blood Cell (WBC) Count 2.1 thou/uL (4.8-10.8)
[2018-07-12 05:22] LABS: ALT (SGPT) 51 U/L (8-55); AST (SGOT) 83 U/L (5-34); Albumin 2.7 g/dL (3.5-5.0); Alkaline Phosphatase 119 U/L (40-150); Anion Gap 7 mmol/L (10-20); BUN (Urea Nitrogen) 12 mg/dL (8.4-25.7); Bilirubin, Total 1.5 mg/dL (0.2-1.2); Calc. Creatinine Clearance 164 mL/min (70-130); Calcium 7.9 mg/dL (7.8-10.44); Carbon Dioxide 25 mmol/L (22-29); Chloride 106 mmol/L (98-107); Estimated GFR-MDRD Greater than 90; Globulin 2.9 g/dL (2.4-3.5); Glucose 120 mg/dL (70-105); Potassium 3.9 mmol/L (3.5-5.1); Protein, Total 5.6 g/dL (6.0-8.3); Sodium 134 mmol/L (136-145)
[2018-07-12] MEDS: Propranolol 10 MG TAB PO SCH ×2 (08:27→20:34)
[2018-07-12] MEDS: Spironolactone 100 MG TAB PO SCH (08:27)
[2018-07-12] MEDS: Tamsulosin HCl 0.4 MG CAP PO SCH (08:27)
[2018-07-12] MEDS: Furosemide 40 MG TAB PO SCH (08:30)
[2018-07-12] MEDS: Brimonidine Tartrate 0.2% Ophth Soln 5 ml Bottle EA EYE SCH ×3 (08:31→20:34)
[2018-07-12] MEDS: diphenhydrAMINE 25 MG CAP PO PRN (15:03)
--- NOTE | 2018-07-12 15:48 | PDOC.PN ---
- Subjective Encounter Start Date: 07/12/18 Encounter Start Time: 10:20 Pt seen for followup re: hepatic encephalopathy. Feels slightly better, still has difficulty urinating. - Objective Resuscitation Status: Resuscitation Status FULL:Full Resuscitation MAR Reviewed: Yes Vital Signs & Weight: Vital Signs (12 hours) Temp Pulse Resp BP BP Pulse Ox 07/12/18 08:22 98 F 83 20 113/70 95 07/12/18 04:00 98.3 F 85 16 100/65 95 Weight Weight 216 lb 8 oz I&O: 07/11/18 07/12/18 07/13/18 06:59 06:59 06:59 Intake Total 1340 1000 Output Total 280 580 Balance 1060 420 Result Diagrams: 07/12/18 04:24 07/12/18 04:24 Additional Labs: Accuchecks 07/12/18 07/12/18 07/11/18 10:57 05:00 19:16 POC Glucose 127 H 103 147 H 07/11/18 16:33 POC Glucose 128 H Labs reviewed by me Phys Exam - Physical Examination Onese HEENT: moist MMs Neck: supple Respiratory: clear to auscultation bilateral Cardiovascular: RRR Gastrointestinal: soft Neurological: moves all 4 limbs Psychiatric: normal affect Deviation from normal: penile swelling Dx/Plan (1) Hepatic encephalopathy Code(s): K72.90 - HEPATIC FAILURE, UNSPECIFIED WITHOUT COMA Status: Acute Comment: on Lactulose (2) Ascites Code(s): R18.8 - OTHER ASCITES Status: Acute Qualifiers: Ascites type: other type Qualified Code(s): R18.8 - Other ascites Comment: Improved, continue diuretics (3) Hepatitis C Code(s): B19.20 - UNSPECIFIED VIRAL HEPATITIS C WITHOUT HEPATIC COMA Status: Chronic Comment: Chronic - Plan * . pt waiting to see urologist re: penile swelling and pain. Review of Systems - Review of Systems Respiratory: negative: Cough, Dry, Shortness of Breath, Hemoptysis, SOB with Excertion, Pleuritic Pain, Sputum, Wheezing Cardiovascular: negative: chest pain, palpitations, orthopnea, paroxysmal nocturnal dyspnea, edema, light headedness Genitourinary: Other (penile pain and swelling) - Medications/Allergies Allergies/Adverse Reactions: Allergies Allergy/AdvReac Type Severity Reaction Status Date / Time No Known Drug Intolerances Allergy Verified 07/03/18 03:50 Medications: Current Medications Brimonidine Tartrate (Alphagan 0.2% Oph Soln) 1 drop EA EYE TID [facility] Last Admin: 07/12/18 14:40 Dose: 1 drop Calcium Carbonate (Tums) 1,000 mg PO Q4H PRN PRN Reason: Heartburn or Indigestion Dextrose/Water (Dextrose 50%) 25 gm SLOW IVP PRN PRN PRN Reason: Hypoglycemia Diphenhydramine HCl (Benadryl) 25 mg PO Q6H PRN PRN Reason: Itching & Insomnia Last Admin: 07/12/18 15:03 Dose: 25 mg Furosemide (Lasix) 40 mg PO DAILY [facility] Last Admin: 07/12/18 08:30 Dose: 40 mg Glucagon (Glucagon) 1 mg IM PRN PRN PRN Reason: Hypoglycemia Hydralazine HCl (Apresoline) 10 mg SLOW IVP Q4H PRN PRN Reason: SBP > 180 and HR < 70 Dextrose/Water (D5w) 1,000 mls @ 0 mls/hr IV .Q0M PRN PRN Reason: Hypoglycemia Insulin Human Lispro (Humalog) 0 units SC .MILD SLIDING SCALE PRN PRN Reason: Mild Correctional Scale Lactulose (Lactulose) 20 gm PO BID [facility] Last Admin: 07/12/18 08:30 Dose: Not Given Latanoprost (Xalatan 0.005% Oph Soln) 1 drop EA EYE HS [facility] Last Admin: 07/11/18 20:32 Dose: 1 drop Ondansetron HCl (Zofran Odt) 4 mg PO Q6H PRN PRN Reason: Nausea/Vomiting Ondansetron HCl (Zofran) 4 mg IVP Q6H PRN PRN Reason: Nausea/Vomiting Last Admin: 07/05/18 04:56 Dose: 4 mg Pantoprazole Sodium (Protonix) 40 mg PO DAILY [facility] Last Admin: 07/12/18 08:27 Dose: 40 mg Propranolol HCl (Inderal) 10 mg PO BID [facility] Last Admin: 07/12/18 08:27 Dose: 10 mg Sodium Chloride (Flush - Normal Saline) 10 ml IVF PRN PRN PRN Reason: Saline Flush Last Admin: 07/06/18 08:12 Dose: 10 ml Spironolactone (Aldactone) 100 mg PO QA-[facility] Last Admin: 07/12/18 08:27 Dose: 100 mg Tamsulosin HCl (Flomax) 0.4 mg PO DAILY [facility] Last Admin: 07/12/18 08:27 Dose: 0.4 mg
[2018-07-12] MEDS: Latanoprost 0.005% Ophth Soln 2.5 ml Bottle EA EYE SCH (20:36)
[2018-07-13] MEDS: diphenhydrAMINE 25 MG CAP PO PRN (00:46)
[2018-07-13 07:30] VITALS: BP 101/63; TEMP 98.4
[2018-07-13] MEDS: Propranolol 10 MG TAB PO SCH (09:26)
[2018-07-13] MEDS: Brimonidine Tartrate 0.2% Ophth Soln 5 ml Bottle EA EYE SCH ×2 (09:26→15:02)
[2018-07-13] MEDS: Spironolactone 100 MG TAB PO SCH (09:26)
[2018-07-13] MEDS: Tamsulosin HCl 0.4 MG CAP PO SCH (09:26)
[2018-07-13] MEDS: Furosemide 40 MG TAB PO SCH (09:26)
--- NOTE | 2018-07-13 12:14 | CON ---
DATE OF CONSULTATION: 07/13/2018 HISTORY OF PRESENT ILLNESS: This is a 58-year-old man with hepatitis C and cirrhosis who was admitte d 10 days ago with worsening ascites. He has had paracentesis done. I think he also had pulmonary e carlie or just a pleural fluid, possibly pneumonia. He has had GI seen. He has had Pulmonary seen. Sue penaloza was in the ICU, required a Olsen catheter. It was difficult to place because of the amount of peni le and scrotal edema. A urology consult with Dr. Flores was called, but by the time he got here, e nursing staff in the ICU got the Olsen inserted and that consult was canceled. I was asked to see him today by Dr. Mtz as he still complains about the penis. He says the penis tends to bend and tw ist and some difficulty with urination. This patient, as mentioned, has chronic hepatitis C. He has got a very low platelet count, very low white count. His creatinine is normal. He is not in retent ion currently and actually had refused another catheter after he inadvertently pulled the one out gloria t he had placed when he was in the ICU. He has not been having anything to suggest hematuria or acti ve bleeding since that time. On talking with him, he states that he is just concerned because the ti p of the penis has a curve to it and there is some ballooning of that when he urinates and that there is some discomfort in this region. PHYSICAL EXAMINATION: On exam, he is not circumcised and he does have phimosis. He has a redundant foreskin. He has still a fairly significant amount of scrotal edema and penile edema. RECOMMENDATIONS: I think what he is dealing with is just redundant foreskin and edema. I do not thi nk this is anything that we would be able to treat surgically with his current health and particularl y his current platelet function and the amount of edema that he has. If he was in good health, a cir cumcision would take care of this, but I do not think the circumcision would heal well on him and ove r the dorsal slit, I think there would be a risk of bleeding. So, I think the treatment for this is the same treatment that he has been receiving for the ascites, which is diuresis. I think it could a lso be aided by elevation of the scrotum and penis with a rolled hand towel to help assist with penil e edema. I told him that unfortunately there is nothing we can do surgically for this. It does not appear currently that he needs a Olsen catheter replaced as his bladder is not distended.
--- NOTE | 2018-07-13 12:27 | PDOC.PN ---
- Subjective Encounter Start Date: 07/13/18 Encounter Start Time: 09:00 Pt seen for followup re: hepatic encephalopathy. No new complaints, waiting to see urology. - Objective Resuscitation Status: Resuscitation Status FULL:Full Resuscitation Vital Signs & Weight: Vital Signs (12 hours) Temp Pulse Resp BP BP Pulse Ox 07/13/18 08:00 97 07/13/18 07:22 98.4 F 81 20 101/63 97 07/13/18 04:00 98.1 F 81 20 99/59 L 97 07/13/18 00:33 97 Weight Weight 216 lb 8 oz I&O: 07/12/18 07/13/18 07/14/18 06:59 06:59 06:59 Intake Total 1000 1050 Output Total 580 880 Balance 420 170 Result Diagrams: 07/12/18 04:24 07/12/18 04:24 Additional Labs: Accuchecks 07/13/18 07/13/18 07/12/18 11:19 04:35 20:45 POC Glucose 133 H 83 118 H 07/12/18 15:59 POC Glucose 134 H Dx/Plan (1) Hepatic encephalopathy Code(s): K72.90 - HEPATIC FAILURE, UNSPECIFIED WITHOUT COMA Status: Acute Comment: on Lactulose (2) Ascites Code(s): R18.8 - OTHER ASCITES Status: Acute Qualifiers: Ascites type: other type Qualified Code(s): R18.8 - Other ascites Comment: Improved, continue diuretics (3) Hepatitis C Code(s): B19.20 - UNSPECIFIED VIRAL HEPATITIS C WITHOUT HEPATIC COMA Status: Chronic Comment: Chronic - Plan * .
--- NOTE | 2018-07-13 18:27 | DIS ---
DATE OF ADMISSION: 07/03/2018 DATE OF DISCHARGE: 07/13/2018 PRIMARY CARE PROVIDER: Unknown. DISCHARGE DIAGNOSES: 1. Hepatic encephalopathy. 2. Decompensated cirrhosis with ascites. 3. Redundant foreskin of the penis. 4. Urinary retention. 5. Penile edema. CONSULTATIONS DURING THIS HOSPITALIZATION: Gastroenterology, Dr. Sultana; Pulmonary Critical Care [place], Dr. Mat Mansfield and Urology and Urology Dr. Warner Moreno. CONDITION OF PATIENT ON THE DAY OF DISCHARGE: Stable. I assessed Mr. Simpson on the day of discharge. He denies any chest pain or shortness of breath. Vital signs are stable. S1 and S2 are heard, reg ular. Lungs are clear to auscultation bilaterally. DISCHARGE MEDICATIONS: Alphagan eyedrops 1 drop to each eye 3 times a day, lactulose 30 mL 2 times a day, latanoprost eyedrops 1 drop to each eye at bedtime, omeprazole 40 mg daily, Inderal 10 mg 2 jay es a day, Lasix 40 mg daily, Aldactone 100 mg daily and Flomax 0.4 mg daily. HOSPITAL COURSE: Mr. Simpson is a pleasant 58-year-old gentleman who was admitted to [facility] on 07/03/2018 for decompensated cirrhosis with ascites. Please refer to Dr. Mtz' s history and physical note dated 07/03/2018 for further details. He was seen by Gastroenterology Se anderson. CT scan of the abdomen on 07/04/2018 showed cirrhosis with findings of portal hypertension, n o suspicious arterial enhancing lesion to suggest presence of hepatocellular carcinoma, fluid contain ing umbilical and right inguinal hernia and moderate right pleural effusion with mild to moderate asc ites and anasarca. He underwent a paracentesis on 07/03/2018 and on 07/09/2018. A 2D echocardiogram on 07/05/2018 showed left ventricular ejection fraction of 50%-55%, moderate mitral regurgitation, s clerotic aortic valve and mild tricuspid regurgitation. He also had an episode of urinary retention and had Olsen catheter inserted. He pulled out the Olsen catheter, but was subsequently able to urin ate. He was seen by Urology Service on the day of discharge for penile pain and deformation. Urolog y Service felt that he has redundant foreskin and edema. If you are in good health, circumcision cou ld be attempted, but he is at high risk of bleeding because of thrombocytopenia. They recommended co ntinuing with diuretics for the ascites and penile edema. LABORATORY DATA: On 07/12/2018, he had white count 2,100, hemoglobin 10.7, platelet count 34,000. S odium 134, potassium 3.9, total bilirubin 1.5, creatinine 0.70, AST 83, ALT 51, alkaline phosphatase 119 and albumin 2.7. DISCHARGE DESTINATION: [facility], from where patient was admitted to the hospital. TOTAL AMOUNT OF TIME SPENT COORDINATING THIS DISCHARGE: 33 minutes.
== END 2018-07-13 15:41 | DRG 441 ==
LOC: ERS 23:15 → EEVIPCON 23:15 → SURG B 07-03 00:10 → T4-B 07-03 22:29
PROVIDERS: ADMIT Internal Medicine; ATTEND Internal Medicine
PROC: 0W9G3ZX Drainage of Peritoneal Cavity, Percutaneous Approach, Diagnostic (ICD-10-PCS; principal; 2018-07-03)
PROC: 0W9G3ZX Drainage of Peritoneal Cavity, Percutaneous Approach, Diagnostic (ICD-10-PCS; 2018-07-09)
DX: K72.90 Hepatic failure, unspecified without coma (principal); J96.00 Acute respiratory failure, unspecified whether with hypoxia or hypercapnia; R18.8 Other ascites; E72.20 Disorder of urea cycle metabolism, unspecified; I85.00 Esophageal varices without bleeding; K76.6 Portal hypertension; J94.8 Other specified pleural conditions; B18.2 Chronic viral hepatitis C; K74.60 Unspecified cirrhosis of liver; I10 Essential (primary) hypertension; E11.65 Type 2 diabetes mellitus with hyperglycemia; N47.1 Phimosis; N48.89 Other specified disorders of penis; R33.9 Retention of urine, unspecified; H40.9 Unspecified glaucoma; Z87.891 Personal history of nicotine dependence; Z82.49 Family history of ischemic heart disease and other diseases of the circulatory system
CPT/HCPCS: 36415; 36416; 49083; 71045; 74170; 76770; 80048; 80053; 82042; 82105; 82140; 82553; 83735; 84100; 84157; 84484; 85025; 85060; 85610; 87070; 87205; 89051; 90471; 90686; 93005; 93306; 94640; G0008; J0295; J1650; J1940; J1956; J2001; J2405; J7050; J7612; P9047

== ENCOUNTER 2018-11-29 00:41 | Emergency (ER) | payer OTHER ==
[2018-11-29 01:24] LABS: #Eosinphils 0.1 thou/uL (0.0-0.7); #Lymphocytes 0.5 thou/uL (1.20-3.40); #Monocytes 0.3 thou/uL (0.11-0.59); %Basophils 0.8 % (0.0-1.0); %Eosinophils 4.3 % (0.0-10.0); %Lymphocytes 17.1 % (21.0-51.0); %Monocytes 11.5 % (0.0-10.0); %Neutrophils 66.3 % (42.0-75.0); Hemoglobin 9.1 g/dL (14.0-18.0); Mean Corpuscular HGB CONC 33.4 g/dL (32.0-36.0); Mean Platelet Volume 7.8 fL (7.4-10.4); Platelet Count 63 thou/uL (130-400); RBC Distribution Width 15.9 % (11.5-14.5); Red Blood Cell (RBC) Count 2.52 mill/uL (4.70-6.10)
[2018-11-29 01:27] LABS: INR-International Normal Ratio 1.6; PTT 36.5 SEC (22.9-36.1); Prothrombin Time 19.2 SEC (12.0-14.7)
[2018-11-29 01:42] LABS: ALT (SGPT) 38 U/L (8-55); AST (SGOT) 72 U/L (5-34); Albumin 2.8 g/dL (3.5-5.0); Alkaline Phosphatase 124 U/L (40-150); Anion Gap 11 mmol/L (10-20); BUN (Urea Nitrogen) 11 mg/dL (8.4-25.7); Bilirubin, Total 2.1 mg/dL (0.2-1.2); Calc. Creatinine Clearance 0 mL/min (70-130); Calcium 8.1 mg/dL (7.8-10.44); Carbon Dioxide 19 mmol/L (22-29); Chloride 111 mmol/L (98-107); Estimated GFR-MDRD Greater than 90; Globulin 3.5 g/dL (2.4-3.5); Glucose 90 mg/dL (70-105); Potassium 4.1 mmol/L (3.5-5.1); Protein, Total 6.3 g/dL (6.0-8.3); Sodium 137 mmol/L (136-145)
[2018-11-29 03:44] LABS: Troponin I Less than 0.010 ng/mL (< 0.028)
--- NOTE | 2018-11-29 07:37 | RAD ---
Portable chest radiograph: 11/29/2018 COMPARISON: 07/04/2018 HISTORY:Chest pain FINDINGS: There is prominent increased density in the right hilar region with obscuration of the righ t heart border and right hemidiaphragm. There is blunting of the right costophrenic angle. Left lung appears clear. No pneumothorax. Osseous structures appear unchanged. IMPRESSION: Prominent increased density is noted within the right lung base. This likely represents p leural fluid with associated volume loss. Infectious pneumonitis/aspiration or underlying lung mass c annot be excluded on the basis of this exam. Follow-up imaging following treatment advised.
--- NOTE | 2018-12-01 14:36 | EKG ---
Test Reason : Blood Pressure : / mmHG Vent. Rate : 068 BPM Atrial Rate : 068 BPM P-R Int : 124 ms QRS Dur : 088 ms QT Int : 452 ms P-R-T Axes : 003 028 017 degrees QTc Int : 480 ms Normal sinus rhythm Prolonged QT Abnormal ECG Confirmed by CARMEN TATE ([id number]), industrial editor VICK VERDE ([id number]) on 12/01/2018 2:36:07 PM Referred By: Confirmed By:CARMEN TATE
== END 2018-11-29 03:50 ==
LOC: ERS 00:41 → EEVIPCON 00:41 → ERS 03:50
DX: R07.89 Other chest pain (principal); B19.20 Unspecified viral hepatitis C without hepatic coma; I10 Essential (primary) hypertension; F32.9 Major depressive disorder, single episode, unspecified; Z79.899 Other long term (current) drug therapy
CPT/HCPCS: 36415; 71045; 80053; 83880; 84484; 85025; 85610; 85730; 93005

== ENCOUNTER 2019-02-18 11:14 | Inpatient (IN) | payer OTHER ==
[2019-02-18] MEDS ORDERED: ISOVUE-370 76%-LOCM 1 ML ONE (11:54)
--- NOTE | 2019-02-18 12:10 | CT ---
EXAM: CT ABDOMEN AND PELVIS HISTORY: Abdominal pain. Tenderness. COMPARISON: 07/04/2018 Procedure: Multiple contiguous axial images were obtained and a CT of the abdomen and pelvis with IV contrast. C oronal reformats were performed. FINDINGS: Lower Chest: Patchy interstitial and groundglass opacities are nonspecific. Consolidation with air br onchograms in the middle lobe and in the left lower lobe may represent atelectasis, pneumonia or aspiration. Vessels: Normal caliber aorta. Heart: Normal heart size. No significant pericardial fluid. Abdomen: Portal vein:Portal vein is patent. There is evidence of a TIPS. Gallbladder: Severely contracted with presumed gallstones. Gallbladder wall does appear to be thicken ed. Liver: Cirrhotic changes with nodularity. There is evidence of portal hypertension with splenic and g astroesophageal varices. No enhancing masses in the liver. Pancreas: within normal limits. Spleen: Splenomegaly. 14.1 cm dimension. Adrenals: within normal limits. Kidneys: Symmetric enhancement. No obstructive uropathy. Peritoneum: No ascites or free air, no fluid collection. Bowel: Limited evaluation due to technique. No evidence of small bowel obstruction. Ileocecal junctio n is normal. Normal caliber appendix. Scattered fecal material throughout the entire colon. Correlate for constipation. No evidence of obstruction. Mesentery and Retroperitoneum: No enlarged mesenteric or retroperitoneal lymph nodes. Abdominal Wall: Ventral abdominal wall hernia containing fat, the level of the umbilicus. Pelvis: Reproductive Organs: No pelvic masses. Pelvis: within normal limits. Bladder: within normal limits. Bones: within normal limits. IMPRESSION: 1. Multi lobar consolidation. Correlate for pneumonia versus atelectasis versus aspiration. 2. Cirrhotic changes of the liver with evidence of portal hypertension. There are gastroesophageal an d splenic varices. 3. Note is made of a TIPS procedure. 4. Splenomegaly. 5. Copious fecal material. Correlate for constipation. 6. Contracted gallbladder with wall thickening. Ultrasound if clinically warranted..
[2019-02-18 12:19] LABS: INR-International Normal Ratio 1.3; PTT 33.9 SEC (22.9-36.1); Prothrombin Time 16.1 SEC (12.0-14.7)
[2019-02-18] MEDS ORDERED: Ondansetron PF 4 MG/2 ML Vial ONE (12:21)
[2019-02-18] MEDS ORDERED: Morphine 4 MG/ML VIAL ONE ×2 (12:21→13:46)
[2019-02-18 12:23] LABS: Hemoglobin 12.5 g/dL (14.0-18.0); Mean Corpuscular HGB CONC 35.9 g/dL (32.0-36.0); Mean Corpuscular Hemoglobin 38.6 pg (27.0-31.0); RBC Distribution Width 15.4 % (11.5-14.5); Red Blood Cell (RBC) Count 3.24 mill/uL (4.70-6.10); White Blood Cell (WBC) Count 5.7 thou/uL (4.8-10.8)
[2019-02-18] MEDS ORDERED: Piperacillin/Tazobactam 4.5 GM VIAL ONE (12:37)
[2019-02-18 12:43] LABS: ALT (SGPT) 120 U/L (8-55); AST (SGOT) 129 U/L (5-34); Alkaline Phosphatase 135 U/L (40-150); Anion Gap 10 mmol/L (10-20); BUN (Urea Nitrogen) 17 mg/dL (8.4-25.7); Bilirubin, Total 4.3 mg/dL (0.2-1.2); Calc. Creatinine Clearance 0 mL/min (70-130); Calcium 9.3 mg/dL (7.8-10.44); Carbon Dioxide 25 mmol/L (22-29); Chloride 101 mmol/L (98-107); Estimated GFR-MDRD Greater than 90; Globulin 4.1 g/dL (2.4-3.5); Glucose 126 mg/dL (70-105); Lipase 43 U/L (8-78); Potassium 4.7 mmol/L (3.5-5.1); Protein, Total 7.1 g/dL (6.0-8.3); Sodium 131 mmol/L (136-145)
[2019-02-18] MEDS ORDERED: Vancomycin HCl 1.5 GM in Sodium Chloride 0.9% 250 ML 300 ML IVPB SCH (12:45)
[2019-02-18 12:57] LABS: #Eosinphils 0.2 thou/uL (0.0-0.7); #Lymphocytes 0.5 thou/uL (1.20-3.40); #Monocytes 0.7 thou/uL (0.11-0.59); #Neutrophils 4.3 thou/uL (1.40-6.50); %Basophils 0.4 % (0.0-1.0); %Eosinophils 2.9 % (0.0-10.0); %Lymphocytes 9.5 % (21.0-51.0); %Monocytes 11.7 % (0.0-10.0); %Neutrophils 75.5 % (42.0-75.0); Hypochromia SLIGHT = 6-15 cells (100X) (0-5/hpf); MDiff Complete? YES; Macrocytosis SLIGHT = 6-15 cells (100X) (0-5/hpf); Mean Platelet Volume 8.1 fL (7.4-10.4); Platelet Count 57 thou/uL (130-400); Platelet Morphology Comment Appears Decreased
--- NOTE | 2019-02-18 13:01 | RAD ---
Exam: Chest one view HISTORY:Pain. Comparison: 11/29/2018 FINDINGS: Cardiac silhouette: Normal Pulmonary vessels: Normal Costophrenic angles: Clear LUNGS: Patchy interstitial opacities throughout the lung parenchyma. Linear opacity in the left lung base may represent scar or subsegmental atelectasis. Pneumothorax: None Osseous abnormalities: None IMPRESSION: Patchy interstitial opacities which may represent edema or infiltrate. Component of scar or atelectasis left lung bases.
[2019-02-18 13:27] LABS: Bilirubin Negative (Negative); Blood, Urine Negative (Negative); Clarity CLEAR (Clear); Glucose, Urine (Dipstick) Negative (Negative); Leukocyte Negative (Negative); Nitrite Negative (Negative); Protein, Urine (Dipstick) Negative (Neg-Trace); Urobilinogen 0.2 mg/dL (0.2-1.0)
[2019-02-18] MEDS ORDERED: Acetaminophen 325 MG TAB PO PRN ×2 (16:30→17:18)
[2019-02-18] MEDS ORDERED: Ondansetron PF 4 MG/2 ML Vial IVP PRN ×2 (16:30→17:14)
[2019-02-18] MEDS ORDERED: Ondansetron ODT 4 MG TAB SL PRN (16:30)
[2019-02-18] MEDS ORDERED: Calcium Carbonate 500 MG ChewTAB PO PRN (17:14)
[2019-02-18] MEDS ORDERED: Ondansetron ODT 4 MG TAB PO PRN (17:14)
[2019-02-18] MEDS ORDERED: Senokot S 8.6-50 MG TAB PO SCH ×2 (18:00→21:00)
[2019-02-18 18:12] VITALS: BMI 26.4
[2019-02-18] MEDS ORDERED: Bisacodyl 10 MG SUPP PR SCH (18:15)
[2019-02-18] MEDS: Sodium Chloride 0.9% 1,000 ML IV SCH ×2 (18:38→18:41)
[2019-02-18] MEDS: cefTRIAXone\\ROCEPHIN 2 GM in Sodium Chloride 0.9% 100 ML IVPB SCH (18:39)
--- NOTE | 2019-02-18 18:46 | HP ---
CHIEF COMPLAINT: Abdominal discomfort. HISTORY OF PRESENT ILLNESS: The patient is a 58-year-old male, who is an inmate with chronic hepatitis C with cirrhosis, presented to the emergency room with above complaints. Over the last 1 week, the patient has on and off abdominal discomfort that is progressively getting worse. His abdominal pain is mainly localized in the epigastric region and in the periumbilical area. He did not have any bowel movements for the last 2 days. No nausea, vomiting, fever, chills, cough, shortness of breath, wheezing, or sick contacts reported. He is compliant with all of his medications. No change in abdominal girth reported. No hematemesis or melena reported. In the emergency room, initial vital signs showed temperature 97.8, respirations of 15, pulse rate of 75 with a blood pressure of 116/69, O2 saturation 100% on [address] scan of the abdomen and pelvis done in the emergency room was negative for acute findings except for multilobar consolidation. It also showed cirrhosis of the liver with portal hypertension and gastroesophageal and splenic varices. PAST MEDICAL HISTORY: 1. Chronic hepatitis C with cirrhosis, portal hypertension, and gastroesophageal and splenic varices. 2. Glaucoma. 3. Hypertension. 4. Diet-controlled diabetes mellitus, type 2. PAST SURGICAL HISTORY: 1. Variceal banding. 2. Surgery for glaucoma. 3. TIPS procedure. ALLERGIES: NO KNOWN DRUG ALLERGIES. CURRENT HOME MEDICATIONS: 1. Lactulose 30 mL 3 times a day. 2. Latanoprost eye drops at bedtime. 3. Midodrine 5 mg twice a day. 4. Omeprazole 20 mg daily. 5. Propranolol 10 mg b.i.d. 6. Aldactone 100 mg b.i.d. 7. Terazosin 2 mg daily. 8. Rifaximin 600 mg twice a day. 9. Lasix 40 mg twice a day. SOCIAL HISTORY: The patient is an inmate. He has history of alcohol abuse in the past. Also, he is a former drug abuser. FAMILY HISTORY: Significant for heart disease. REVIEW OF SYSTEMS: PHYSICAL EXAMINATION: VITAL SIGNS: As discussed above. GENERAL: A 58-year-old male, in mild distress due to abdominal discomfort. HEENT: Head, atraumatic and normocephalic. Sclerae are anicteric. Dry mucous membranes. No oral lesion. NECK: Supple. No JVD appreciated. No carotid bruit. LUNGS: Showed bilateral rhonchi with scattered rales at bases. There was no wheezing. No accessory muscle use. HEART: S1 and S2 present. Regular rate and rhythm. No rubs or gallops appreciated. ABDOMEN: Soft. There is mild tenderness in the epigastric and periumbilical region. No rebound or guarding. No costovertebral angle tenderness. Bowel sounds were present. EXTREMITIES: No edema or calf tenderness. NEUROLOGIC: Grossly nonfocal. Moves all 4 extremities. Psychiatry: Alert, awake, and oriented x3. SKIN: Warm and dry. LYMPH NODES: No palpable lymph nodes in the neck. PERIPHERAL VASCULAR: Radial pulses palpable bilaterally. MUSCULOSKELETAL: No joint swelling or tenderness. LABORATORY FINDINGS: CBC showed WBC 5.7 with hemoglobin 12.5, hematocrit 34.8, platelet count of 57. PT 16.1, INR 1.3, PTT 33.9. Chemistry showed sodium 131, potassium 4.7, chloride 101, bicarb 25, BUN 17, creatinine 0.8, total bilirubin 4.3 with AST of 129, ALT 120, alkaline phosphorus 135. Urinalysis was negative for wbc or bacteria. Albumin 3.0. Chest x-ray and CT scan of the abdomen and pelvis by my review as discussed above. IMPRESSION: 1. Multilobar pneumonia, suspected community-acquired versus aspiration. 2. Abdominal pain with significant constipation. No pathology identified on the CT scan. 3. Chronic hepatitis C with thrombocytopenia, gastroesophageal and splenic varices, and portal hypertension. 4. History of transjugular intrahepatic portosystemic shunt procedure. 5. Hypertension. 6. Gastroesophageal reflux disease. 7. Glaucoma. PLAN: The patient will be monitored on the medical floor. We will start him on ceftriaxone along with doxycycline. Infectious Disease will be consulted. We will resume lactulose along with rifaximin. Check ammonia in a.m. Resume beta-blockers. Hold Lasix for now as the patient appears to be dehydrated at this time. Gentle hydration. Plan of care was discussed with the patient in detail. He stated understanding. Job ID: [id number]
[2019-02-18] MEDS: Terazosin HCl 1 MG CAP PO SCH (20:42)
[2019-02-18] MEDS: Rifaximin 550 MG TAB PO SCH (20:42)
[2019-02-18] MEDS: Propranolol HCl 20 MG TAB PO SCH (20:42)
[2019-02-18] MEDS: Doxycycline 100 MG CAP PO SCH (20:43)
[2019-02-18] MEDS: Brimonidine Tartrate 0.2% Ophth Soln 5 ml Bottle EA EYE SCH (20:45)
[2019-02-18] MEDS: Latanoprost 0.005% Ophth Soln 2.5 ml Bottle EA EYE SCH (20:45)
[2019-02-19] MEDS: Sodium Chloride 0.9% 1,000 ML IV SCH ×2 (03:32→07:41)
[2019-02-19 04:03] LABS: #Eosinphils 0.1 thou/uL (0.0-0.7); #Lymphocytes 0.6 thou/uL (1.20-3.40); #Monocytes 0.7 thou/uL (0.11-0.59); #Neutrophils 4.4 thou/uL (1.40-6.50); %Basophils 0.3 % (0.0-1.0); %Eosinophils 2.4 % (0.0-10.0); %Lymphocytes 10.2 % (21.0-51.0); %Monocytes 11.9 % (0.0-10.0); %Neutrophils 75.1 % (42.0-75.0); Hemoglobin 10.9 g/dL (14.0-18.0); Mean Corpuscular HGB CONC 35.7 g/dL (32.0-36.0); Mean Corpuscular Hemoglobin 38.1 pg (27.0-31.0); Mean Platelet Volume 7.7 fL (7.4-10.4); Platelet Count 56 thou/uL (130-400); RBC Distribution Width 15.1 % (11.5-14.5); Red Blood Cell (RBC) Count 2.87 mill/uL (4.70-6.10); White Blood Cell (WBC) Count 5.9 thou/uL (4.8-10.8)
[2019-02-19 04:12] LABS: Phosphorus 3.3 mg/dL (2.3-4.7)
[2019-02-19 04:14] LABS: ALT (SGPT) 103 U/L (8-55); AST (SGOT) 107 U/L (5-34); Albumin 2.7 g/dL (3.5-5.0); Alkaline Phosphatase 118 U/L (40-150); Anion Gap 11 mmol/L (10-20); BUN (Urea Nitrogen) 12 mg/dL (8.4-25.7); Calc. Creatinine Clearance 112 mL/min (70-130); Calcium 8.5 mg/dL (7.8-10.44); Carbon Dioxide 23 mmol/L (22-29); Chloride 103 mmol/L (98-107); Estimated GFR-MDRD Greater than 90; Globulin 3.6 g/dL (2.4-3.5); Glucose 137 mg/dL (70-105); Magnesium 1.5 mg/dL (1.6-2.6); Potassium 4.9 mmol/L (3.5-5.1); Protein, Total 6.3 g/dL (6.0-8.3); Sodium 132 mmol/L (136-145)
[2019-02-19] MEDS: Spironolactone 25 MG TAB PO SCH ×2 (07:41→16:19)
[2019-02-19] MEDS: Propranolol HCl 20 MG TAB PO SCH ×3 (07:42→20:14)
[2019-02-19] MEDS: Brimonidine Tartrate 0.2% Ophth Soln 5 ml Bottle EA EYE SCH ×3 (07:42→20:17)
[2019-02-19] MEDS: Doxycycline 100 MG CAP PO SCH ×2 (07:42→20:16)
[2019-02-19] MEDS: Rifaximin 550 MG TAB PO SCH ×2 (07:43→20:16)
[2019-02-19] MEDS ORDERED: Spironolactone 25 MG TAB PO SCH (08:00)
--- NOTE | 2019-02-19 13:07 | PDOC.PN ---
- Subjective Encounter Start Date: 02/19/19 Encounter Start Time: 12:15 Subjective: feels better, no abd pain -: has cough+ - Objective Resuscitation Status - Order Detail: 02/18/19 17:14 Resuscitation Status Routine Resuscitation Status: FULL: Full Resuscitation MAR Reviewed: Yes Vital Signs & Weight: Vital Signs (12 hours) Temp Pulse Resp BP Pulse Ox 02/19/19 08:04 98 F 91 20 107/65 100 02/19/19 08:03 100 02/19/19 04:00 98.2 F 98 20 103/58 L 95 Weight Admit Weight 169 lb 1.6 oz Weight 169 lb 1.6 oz Result Diagrams: 02/19/19 03:52 02/19/19 03:52 Phys Exam - Physical Examination HEENT: PERRLA, moist MMs Neck: no JVD, supple Respiratory: no wheezing, no rales Cardiovascular: RRR, no significant murmur Gastrointestinal: soft, non-tender, positive bowel sounds Musculoskeletal: no edema, pulses present Neurological: non-focal, moves all 4 limbs Psychiatric: normal affect, A&O x 3 Dx/Plan (1) Pneumonia Code(s): J18.9 - PNEUMONIA, UNSPECIFIED ORGANISM Status: Acute Qualifiers: Pneumonia type: due to unspecified organism Laterality: bilateral Comment: on ceftriaxone and doxy (2) h/o TIP procedure Status: Chronic (3) HTN (hypertension) Code(s): I10 - ESSENTIAL (PRIMARY) HYPERTENSION Status: Chronic Qualifiers: Hypertension type: essential hypertension Qualified Code(s): I10 - Essential (primary) hypertension (4) Thrombocytopenia Code(s): D69.6 - THROMBOCYTOPENIA, UNSPECIFIED Status: Chronic (5) Cirrhosis Code(s): K74.60 - UNSPECIFIED CIRRHOSIS OF LIVER Status: Chronic Comment: Secondary to Hep C (6) Hepatitis C Code(s): B19.20 - UNSPECIFIED VIRAL HEPATITIS C WITHOUT HEPATIC COMA Status: Chronic Qualifiers: Viral hepatitis chronicity: chronic Hepatic coma status: without hepatic coma Qualified Code(s): B18.2 - Chronic viral hepatitis C Comment: Chronic - Plan continue ceftriaxone and doxy -: is also on xifaxan, hytrin, lactulose, propranolol and spironolactone -: has elevated lft's and t.bili with low alb and platelets sec to cirrhosis -: hemostable -: had 1 bm this am, needs to have atleast 2-3 loose bm/day * . Review of Systems - Medications/Allergies Allergies/Adverse Reactions: Allergies Allergy/AdvReac Type Severity Reaction Status Date / Time No Known Drug Intolerances Allergy Verified 02/18/19 18:09 Medications: Current Medications Acetaminophen (Tylenol) 325 mg PO Q6H PRN PRN Reason: Headache/Fever or Pain Brimonidine Tartrate (Alphagan 0.2% Ophth Soln) 1 drop EA EYE TID [facility] Last Admin: 02/19/19 07:42 Dose: 1 drop Calcium Carbonate (Tums) 1,000 mg PO Q4H PRN PRN Reason: Heartburn or Indigestion Doxycycline Hyclate (Vibramycin) 100 mg PO BID [facility] Last Admin: 02/19/19 07:42 Dose: 100 mg Ceftriaxone Sodium 2 gm/ (Sodium Chloride) 100 mls @ 200 mls/hr IVPB Q24HR [facility] Last Admin: 02/18/19 18:39 Dose: 100 mls Sodium Chloride (Normal Saline 0.9%) 1,000 mls @ 70 mls/hr IV .[id number] [facility] Stop: 02/19/19 18:01 Last Admin: 02/19/19 07:41 Dose: 1,000 mls Lactulose (Lactulose) 20 gm PO TID [facility] Last Admin: 02/19/19 07:42 Dose: 20 gm Latanoprost (Xalatan 0.005% Ophth Soln) 1 drop EA EYE [facility] Last Admin: 02/18/19 20:45 Dose: 1 drop Ondansetron HCl (Zofran Odt) 4 mg PO Q6H PRN PRN Reason: Nausea/Vomiting Ondansetron HCl (Zofran) 4 mg IVP Q6H PRN PRN Reason: Nausea/Vomiting Propranolol HCl (Inderal) 20 mg PO TID [facility] Last Admin: 02/19/19 07:42 Dose: Not Given Rifaximin (Xifaxan) 550 mg PO BID [facility] Last Admin: 02/19/19 07:43 Dose: 550 mg Spironolactone (Aldactone) 25 mg PO BID[facility] Last Admin: 02/19/19 07:41 Dose: Not Given Terazosin HCl (Hytrin) 2 mg PO [facility] Last Admin: 02/18/19 20:42 Dose: 2 mg
[2019-02-19] MEDS: cefTRIAXone\\ROCEPHIN 2 GM in Sodium Chloride 0.9% 100 ML IVPB SCH (17:24)
[2019-02-19] MEDS: Terazosin HCl 1 MG CAP PO SCH (20:16)
[2019-02-19] MEDS: Latanoprost 0.005% Ophth Soln 2.5 ml Bottle EA EYE SCH (20:17)
--- NOTE | 2019-02-19 23:01 | CON ---
DATE OF CONSULTATION: 02/19/2019 REASON FOR CONSULTATION: Possible pneumonia. HISTORY OF PRESENT ILLNESS: A 58-year-old who has a history of chronic hepatitis C, reportedly not yet treated with cirrhosis, portal hypertension and refractory ascites in the past. He also has a history of type 2 diabetes. He was admitted in July 08 with shortness of breath and discharge diagnosis was hepatic encephalopathy and decompensated cirrhosis with ascites and urinary retention. He was given Lasix, Aldactone, Inderal, omeprazole, Flomax. CT of abdomen showed cirrhosis, but no malignancy. He had urinary retention and then required a Olsen catheter insertion, but then was able to urinate and now he presents from his unit, because of abdominal discomfort. Apparently, he had a TIPS procedure done at [facility] recently with marked improvement in the ascites. The pain that he refers to now began in the epigastric region. His initial evaluation showed a temperature of 97.8, respirations [address] scan of abdomen and pelvis did not show any findings except for lung findings described below. He also had cirrhosis of the liver. His initial ER findings included a respiratory rate of 15, temperature of 97.8, O2 saturation 100 and BP 116/69. The patient was alert and oriented, no distress. Lungs sounds are clear. Heart exam normal. Abdomen was described as not tender in the emergency room exam as opposed to the findings in the admitting physician exam. Initial chest x-ray demonstrated patchy interstitial opacities, which could represent inflammatory infiltrate or edema. Abdomen and pelvis CT with patchy interstitial ground-glass opacities, consolidation in air bronchograms, middle lobe and left lower lobe, cirrhotic liver changes and splenomegaly. Currently, Mr. Simpson is awake. He is coughing infrequently with very little whitish sputum. Denies any headaches. No sore throat, although sometimes he does have headaches. No dyspnea. No chest pain. No abdominal pain. He is voiding spontaneously in the toilet. No joint symptoms. PAST MEDICAL HISTORY: Untreated hepatitis C, cirrhosis of the liver, portal hypertension, TIPS procedure, refractory ascites, which has resolved now after the TIPS, type 2 diabetes. PAST SURGICAL HISTORY: Variceal banding, glaucoma. ALLERGIES: NONE. FAMILY HISTORY: Coronary artery disease. 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 He is currently in incarcerated [facility]. PHYSICAL EXAMINATION: VITAL SIGNS: T-max 98.2, blood pressure 107/65, pulse 91, respirations 20, O2 saturation 10. SKIN: Shows areas of spider angiomata in the anterior chest region. Peripheral IV access. LYMPHATICS: No lymphadenopathy. HEENT: No abnormalities in the ocular exam. Oral cavity, he has still quite a few teeth in place. No oral mucosal abnormality. NECK: Supple. No jugular vein distention or carotid bruits. LUNGS: With faint inspiratory crackles in the right hemithorax extending from the base all the way to 2/3 of the hemithorax on the right side. On the left side, there is only a few areas with inspiratory crackles. Transient wheezing is heard as well. HEART: S1 and S2. Regular rate. No S3. ABDOMEN: Soft with mild tenderness on percussion in right and left side, upper and lower quadrants. No bladder distention. EXTREMITIES: No joint inflammatory activity. Pulses are 1+ in dorsalis pedis. Plantar responses are flexor. No asterixis. NEUROLOGIC: He knows his name. He knows where he is. Follows commands. A little bit drowsy. LABORATORY DATA: White cell count is 5.7 and 5.9, hemoglobin 10.9, platelets 56 ,000 and we have 75% neutrophils, eosinophils 2.4, and chemistry with a sodium of 131 creatinine 0.8, bilirubin 4.3, AST 129, ALT 120, albumin 3.0, globulin 4.1, lipase 43. Urinalysis was normal. Two sets of blood cultures thus far no growth. Urine culture, no growth. ASSESSMENT: Untreated hepatitis C with liver cirrhosis, advanced with portal hypertension, previously intractable, which required large volume paracentesis. Eventually, managed with a transjugular intrahepatic portosystemic shunt procedure, now admitted according to the patient's own description with abdominal pain, which was somewhat diffuse. The CT showed just some areas of consolidation, also splenomegaly and cirrhosis, but no other findings of significance. There was a lot of fecal material. There was some gallbladder wall thickening. Right now, he has minimal tenderness, but still some tenderness, which is somewhat diffuse in the abdomen. The lungs have some crackles in the right base. DISCUSSION: The differential diagnosis includes community-acquired pneumonia or institutional acquired pneumonia versus atelectasis or hepatopulmonary syndrome. He does not have ascites, so spontaneous bacterial peritonitis is not likely. At this point, continue the current antimicrobials, monitor his blood cultures. He had only mild neutrophilia, but he is immunosuppressed and is at high risk for complications such as pneumonia, particularly since he has been in the infirmary in the recumbent position for a longer period of time than otherwise, which will increase the risk of having opportunistic pneumonitis. I do not think there is evidence to suggest at least overt aspiration at this point in time. Job ID: [id number] MTDD
[2019-02-20] MEDS: Spironolactone 25 MG TAB PO SCH ×2 (08:36→17:41)
[2019-02-20] MEDS: Rifaximin 550 MG TAB PO SCH ×2 (08:36→20:07)
[2019-02-20] MEDS: Brimonidine Tartrate 0.2% Ophth Soln 5 ml Bottle EA EYE SCH ×3 (08:37→20:05)
[2019-02-20] MEDS: Doxycycline 100 MG CAP PO SCH ×2 (08:41→20:06)
[2019-02-20] MEDS: Propranolol HCl 20 MG TAB PO SCH ×3 (08:44→20:07)
--- NOTE | 2019-02-20 13:43 | PDOC.PN ---
- Subjective Encounter Start Date: 02/20/19 Encounter Start Time: 11:40 Subjective: no sob or abd pain -: feels better -: has mild cough - Objective Resuscitation Status - Order Detail: 02/18/19 17:14 Resuscitation Status Routine Resuscitation Status: FULL: Full Resuscitation MAR Reviewed: Yes Vital Signs & Weight: Vital Signs (12 hours) Temp Pulse Resp BP Pulse Ox 02/20/19 08:00 98.0 F 82 16 108/69 100 Weight Admit Weight 169 lb 1.6 oz Weight 169 lb 1.6 oz I&O: 02/19/19 02/20/19 02/21/19 06:59 06:59 06:59 Intake Total 1000 240 Output Total 375 Balance 1000 -135 Result Diagrams: 02/19/19 03:52 02/19/19 03:52 Phys Exam - Physical Examination HEENT: PERRLA, moist MMs Neck: no JVD, supple Respiratory: no wheezing, no rales Cardiovascular: RRR, no significant murmur Gastrointestinal: soft, non-tender, positive bowel sounds Musculoskeletal: no edema, pulses present Neurological: non-focal, moves all 4 limbs Psychiatric: A&O x 3 Dx/Plan (1) Pneumonia Code(s): J18.9 - PNEUMONIA, UNSPECIFIED ORGANISM Status: Acute Qualifiers: Pneumonia type: due to unspecified organism Laterality: bilateral Comment: on ceftriaxone and doxy (2) h/o TIP procedure Status: Chronic (3) HTN (hypertension) Code(s): I10 - ESSENTIAL (PRIMARY) HYPERTENSION Status: Chronic Qualifiers: Hypertension type: essential hypertension Qualified Code(s): I10 - Essential (primary) hypertension (4) Thrombocytopenia Code(s): D69.6 - THROMBOCYTOPENIA, UNSPECIFIED Status: Chronic (5) Cirrhosis Code(s): K74.60 - UNSPECIFIED CIRRHOSIS OF LIVER Status: Chronic Comment: Secondary to Hep C (6) Hepatitis C Code(s): B19.20 - UNSPECIFIED VIRAL HEPATITIS C WITHOUT HEPATIC COMA Status: Chronic Qualifiers: Viral hepatitis chronicity: chronic Hepatic coma status: without hepatic coma Qualified Code(s): B18.2 - Chronic viral hepatitis C Comment: Chronic - Plan is on ceftriaxone, doxy and nebs -: hemostable -: likely dc plan in am on oral levaquin/omnicef -: continue propranolol, spironolactone, lactulose and xifaxan -: to amb as tolerated in room * . Review of Systems - Medications/Allergies Allergies/Adverse Reactions: Allergies Allergy/AdvReac Type Severity Reaction Status Date / Time No Known Drug Intolerances Allergy Verified 02/18/19 18:09 Medications: Current Medications Acetaminophen (Tylenol) 325 mg PO Q6H PRN PRN Reason: Headache/Fever or Pain Albuterol/Ipratropium (Duoneb) 3 ml NEB [id number] [facility] Brimonidine Tartrate (Alphagan 0.2% Ophth Soln) 1 drop EA EYE TID [facility] Last Admin: 02/20/19 08:37 Dose: 1 drop Calcium Carbonate (Tums) 1,000 mg PO Q4H PRN PRN Reason: Heartburn or Indigestion Doxycycline Hyclate (Vibramycin) 100 mg PO BID [facility] Last Admin: 02/20/19 08:41 Dose: 100 mg Ceftriaxone Sodium 2 gm/ (Sodium Chloride) 100 mls @ 200 mls/hr IVPB Q24HR [facility] Last Admin: 02/19/19 17:24 Dose: 100 mls Lactulose (Lactulose) 20 gm PO TID [facility] Last Admin: 02/20/19 08:37 Dose: 20 gm Latanoprost (Xalatan 0.005% Ophth Soln) 1 drop EA EYE [facility] Last Admin: 02/19/19 20:17 Dose: 1 drop Ondansetron HCl (Zofran Odt) 4 mg PO Q6H PRN PRN Reason: Nausea/Vomiting Ondansetron HCl (Zofran) 4 mg IVP Q6H PRN PRN Reason: Nausea/Vomiting Propranolol HCl (Inderal) 20 mg PO TID [facility] Last Admin: 02/20/19 08:44 Dose: Not Given Rifaximin (Xifaxan) 550 mg PO BID [facility] Last Admin: 02/20/19 08:36 Dose: 550 mg Spironolactone (Aldactone) 25 mg PO BID-[facility] Last Admin: 02/20/19 08:36 Dose: 25 mg Terazosin HCl (Hytrin) 2 mg PO [facility] Last Admin: 02/19/19 20:16 Dose: 2 mg
[2019-02-20] MEDS: cefTRIAXone\\ROCEPHIN 2 GM in Sodium Chloride 0.9% 100 ML IVPB SCH (17:41)
[2019-02-20] MEDS: Terazosin HCl 1 MG CAP PO SCH (20:07)
[2019-02-20] MEDS: Latanoprost 0.005% Ophth Soln 2.5 ml Bottle EA EYE SCH (20:10)
[2019-02-21] MEDS: Propranolol HCl 20 MG TAB PO SCH ×3 (08:41→20:14)
[2019-02-21] MEDS: Spironolactone 25 MG TAB PO SCH ×2 (08:42→17:09)
[2019-02-21] MEDS: Brimonidine Tartrate 0.2% Ophth Soln 5 ml Bottle EA EYE SCH ×3 (08:42→20:12)
[2019-02-21] MEDS: Rifaximin 550 MG TAB PO SCH ×2 (08:43→20:14)
[2019-02-21] MEDS: Doxycycline 100 MG CAP PO SCH ×2 (08:44→20:14)
--- NOTE | 2019-02-21 15:56 | PDOC.PN ---
- Subjective Encounter Start Date: 02/21/19 Encounter Start Time: 08:00 Subjective: no sob, feels better - Objective Resuscitation Status - Order Detail: 02/18/19 17:14 Resuscitation Status Routine Resuscitation Status: FULL: Full Resuscitation MAR Reviewed: Yes Vital Signs & Weight: Vital Signs (12 hours) Temp Pulse Resp BP Pulse Ox 02/21/19 11:57 98.4 F 82 16 105/65 98 02/21/19 08:00 97 02/21/19 07:51 98.1 F 79 16 94/56 L 97 02/21/19 06:22 82 16 98 Weight Admit Weight 169 lb 1.6 oz Weight 169 lb 1.6 oz I&O: 02/20/19 02/21/19 02/22/19 06:59 06:59 06:59 Intake Total 1000 1330 Output Total 375 Balance 1000 955 Result Diagrams: 02/19/19 03:52 02/19/19 03:52 Phys Exam - Physical Examination HEENT: PERRLA, moist MMs Neck: no JVD, supple Respiratory: no wheezing, no rales Cardiovascular: RRR, no significant murmur Gastrointestinal: soft, non-tender, positive bowel sounds Musculoskeletal: no edema, pulses present Neurological: non-focal, moves all 4 limbs Psychiatric: A&O x 3 Dx/Plan (1) Pneumonia Code(s): J18.9 - PNEUMONIA, UNSPECIFIED ORGANISM Status: Acute Qualifiers: Pneumonia type: due to unspecified organism Laterality: bilateral (2) h/o TIP procedure Status: Chronic (3) HTN (hypertension) Code(s): I10 - ESSENTIAL (PRIMARY) HYPERTENSION Status: Chronic Qualifiers: Hypertension type: essential hypertension Qualified Code(s): I10 - Essential (primary) hypertension (4) Thrombocytopenia Code(s): D69.6 - THROMBOCYTOPENIA, UNSPECIFIED Status: Chronic (5) Cirrhosis Code(s): K74.60 - UNSPECIFIED CIRRHOSIS OF LIVER Status: Chronic Comment: Secondary to Hep C (6) Hepatitis C Code(s): B19.20 - UNSPECIFIED VIRAL HEPATITIS C WITHOUT HEPATIC COMA Status: Chronic Qualifiers: Viral hepatitis chronicity: chronic Hepatic coma status: without hepatic coma Qualified Code(s): B18.2 - Chronic viral hepatitis C Comment: Chronic - Plan hemostable -: omnicef x 6 days -: dc pt to senior care -: to f/u with PCP for hep C treatment if he qualifies at senior care * .
[2019-02-21] MEDS: Cefdinir 300 MG CAP PO SCH (20:13)
[2019-02-21] MEDS: Latanoprost 0.005% Ophth Soln 2.5 ml Bottle EA EYE SCH (20:14)
[2019-02-21] MEDS: Terazosin HCl 1 MG CAP PO SCH (20:14)
[2019-02-22] MEDS: Propranolol HCl 20 MG TAB PO SCH ×2 (09:36→14:08)
[2019-02-22] MEDS: Spironolactone 25 MG TAB PO SCH (09:36)
[2019-02-22] MEDS: Doxycycline 100 MG CAP PO SCH (09:37)
[2019-02-22] MEDS: Cefdinir 300 MG CAP PO SCH (09:38)
[2019-02-22] MEDS: Rifaximin 550 MG TAB PO SCH (09:38)
[2019-02-22] MEDS: Brimonidine Tartrate 0.2% Ophth Soln 5 ml Bottle EA EYE SCH ×2 (09:38→14:06)
--- NOTE | 2019-02-22 13:05 | PDOC.PN ---
- Subjective Encounter Start Date: 02/22/19 Encounter Start Time: 07:30 Subjective: no new complaints -: no sob, is not in distress - Objective Resuscitation Status - Order Detail: 02/18/19 17:14 Resuscitation Status Routine Resuscitation Status: FULL: Full Resuscitation MAR Reviewed: Yes Vital Signs & Weight: Vital Signs (12 hours) Temp Pulse Resp BP Pulse Ox 02/22/19 09:46 98 02/22/19 07:25 98.2 F 87 16 94/56 L 99 02/22/19 07:11 85 16 98 Weight Admit Weight 169 lb 1.6 oz Weight 169 lb 1.6 oz I&O: 02/21/19 02/22/19 02/23/19 06:59 06:59 06:59 Intake Total 1330 1500 Output Total 375 800 Balance 955 700 Result Diagrams: 02/19/19 03:52 02/19/19 03:52 Phys Exam - Physical Examination HEENT: PERRLA, moist MMs Neck: no JVD, supple Respiratory: no wheezing, no rales Cardiovascular: RRR, no significant murmur Gastrointestinal: soft, no distention, positive bowel sounds Musculoskeletal: no edema, pulses present Neurological: non-focal, moves all 4 limbs Psychiatric: A&O x 3 Dx/Plan (1) Pneumonia Code(s): J18.9 - PNEUMONIA, UNSPECIFIED ORGANISM Status: Acute Qualifiers: Pneumonia type: due to unspecified organism Laterality: bilateral (2) h/o TIP procedure Status: Chronic (3) HTN (hypertension) Code(s): I10 - ESSENTIAL (PRIMARY) HYPERTENSION Status: Chronic Qualifiers: Hypertension type: essential hypertension Qualified Code(s): I10 - Essential (primary) hypertension (4) Thrombocytopenia Code(s): D69.6 - THROMBOCYTOPENIA, UNSPECIFIED Status: Chronic (5) Cirrhosis Code(s): K74.60 - UNSPECIFIED CIRRHOSIS OF LIVER Status: Chronic Comment: Secondary to Hep C (6) Hepatitis C Code(s): B19.20 - UNSPECIFIED VIRAL HEPATITIS C WITHOUT HEPATIC COMA Status: Chronic Qualifiers: Viral hepatitis chronicity: chronic Hepatic coma status: without hepatic coma Qualified Code(s): B18.2 - Chronic viral hepatitis C Comment: Chronic - Plan hemostable -: dc was held due to correction facility software issue and [facility] placeme -: dc today to halfway -: omnicef as prescribed, alb inh prn * .
[2019-02-22 14:12] VITALS: BP 96/57; TEMP 98.5
--- NOTE | 2019-02-22 17:26 | DIS ---
DATE OF ADMISSION: 02/18/2019 DATE OF DISCHARGE: 02/22/2019 DISCHARGE DISPOSITION: Home. PRIMARY DISCHARGE DIAGNOSIS: Pneumonia. SECONDARY DISCHARGE DIAGNOSES: History of cirrhosis with hep C with prior TIPS procedure, hypertension, chronic thrombocytopenia due to cirrhosis. PROCEDURES DONE DURING HOSPITALIZATION: CT of the abdomen and pelvis done initially for epigastric pain showed multilobar consolidation. There were cirrhotic changes of the liver with evidence of portal hypertension. There were gastroesophageal and splenic varices seen, splenomegaly. Copious fecal material was seen. H and H 11 and 30, platelet count 56, MCV 107, INR 1.3, total bilirubin 3.0, AST 107, ALT 103, alkaline phosphatase 118. Ammonia levels were 72. Albumin was 2.7, lipase 43. BUN 12, creatinine 0.8. Blood cultures x2, no growth. Urine culture, no growth. DISCHARGE MEDICATIONS: 1. Omnicef 300 mg p.o. twice daily for another 6 days. 2. Aldactone 100 mg p.o. daily. 3. Albuterol inhaler q.6 hourly p.r.n. 4. Inderal 10 mg twice daily. 5. Omeprazole 40 mg daily. 6. Latanoprost eyedrops as before at bedtime. 7. Lactulose 30 mL p.o. twice daily. 8. Alphagan eye drops as before. ALLERGIES: NO KNOWN DRUG ALLERGIES. DISCHARGE PLAN: The patient to follow up with his primary care physician at the shelter facility. He also needs to follow up with his traffic supervisor with TIPS procedure done in November for followup. BRIEF COURSE DURING HOSPITALIZATION: The patient initially was sent from shelter on the 1st of this month with complaints of abdominal discomfort. His initial CAT scan done showed multilobar pneumonia. He also had constipation. The patient was placed on IV antibiotics along with nebulization and stool softeners. He has responded well to above measures. He needs to follow up with his TIPS procedure physician for followup. He needs to continue Omnicef for another 6 days. He is ambulating and eating well prior to discharge. His constipation has completely resolved. Please see a [id number] documentation for the day of discharge on [facility]. Job ID: [id number] [facility]
== END 2019-02-22 15:53 | DRG 194 ==
LOC: ERS 11:14 → T4-B 14:29
PROVIDERS: ADMIT Internal Medicine; ATTEND Internal Medicine
DX: J18.1 Lobar pneumonia, unspecified organism (principal); K76.6 Portal hypertension; B18.2 Chronic viral hepatitis C; K59.00 Constipation, unspecified; K74.60 Unspecified cirrhosis of liver; H40.9 Unspecified glaucoma; I86.8 Varicose veins of other specified sites; I86.4 Gastric varices; E11.9 Type 2 diabetes mellitus without complications; I10 Essential (primary) hypertension; K21.9 Gastro-esophageal reflux disease without esophagitis; D69.6 Thrombocytopenia, unspecified; Z79.899 Other long term (current) drug therapy
CPT/HCPCS: 36415; 71045; 74177; 80053; 81003; 82140; 83690; 83735; 84100; 85025; 85610; 85730; 87040; 87086; 90471; 90732; 94640; 94760; 96365; 96367; 96375; G0009; J0696; J2270; J2405; J2543; J3370; J3490; J7050; J7620; Q9966

== ENCOUNTER 2019-03-05 18:34 | Observation (INO) | payer OTHER ==
[~2019-03-05 18:34] MED LIST: ISOVUE-370 76%-LOCM 1 ML ONE
[2019-03-05 19:26] LABS: #Eosinphils 0.1 thou/uL (0.0-0.7); #Lymphocytes 0.5 thou/uL (1.20-3.40); #Monocytes 0.4 thou/uL (0.11-0.59); #Neutrophils 3.5 thou/uL (1.40-6.50); %Basophils 0.3 % (0.0-1.0); %Eosinophils 2.1 % (0.0-10.0); %Lymphocytes 10.1 % (21.0-51.0); %Monocytes 9.7 % (0.0-10.0); %Neutrophils 77.8 % (42.0-75.0); Hemoglobin 11.6 g/dL (14.0-18.0); Mean Corpuscular HGB CONC 34.1 g/dL (32.0-36.0); Mean Corpuscular Hemoglobin 37.4 pg (27.0-31.0); Mean Platelet Volume 8.1 fL (7.4-10.4); Platelet Count 51 thou/uL (130-400); RBC Distribution Width 14.7 % (11.5-14.5); Red Blood Cell (RBC) Count 3.11 mill/uL (4.70-6.10); White Blood Cell (WBC) Count 4.5 thou/uL (4.8-10.8)
--- NOTE | 2019-03-05 19:32 | RAD ---
EXAM: Portable chest PROVIDED CLINICAL HISTORY: Dyspnea COMPARISON: 02/18/2019 FINDINGS: Cardiac and mediastinal silhouette is within normal limits. No focal consolidation, pleural fluid or pneumothorax evident. IMPRESSION: No evidence for an acute cardiopulmonary process.
[2019-03-05 19:40] LABS: Base Excess-Venous 2.2 mmol/L (-2.0 to 3.0); Bicarbonate (HCO3v) 27.7 mmol/L (22.0-28.0); CO2 Tension (PvCO2) 46.2 mmHg (40.0-50.0); Calcium, Ionized 1.17 mmol/L (See Comments:); Chloride 94 mmol/L (98-107); Potassium 5.2 mmol/L (3.5-5.1); Sodium 129 mmol/L (138-145); T. Carbon Dioxide 29.1 mmol/L (22.0-28.0); vO2 Saturation-calc 87.8 % (60.0-85.0)
[2019-03-05 19:47] LABS: ALT (SGPT) 81 U/L (8-55); AST (SGOT) 100 U/L (5-34); Albumin 2.9 g/dL (3.5-5.0); Alkaline Phosphatase 189 U/L (40-150); Anion Gap 9 mmol/L (10-20); BUN (Urea Nitrogen) 16 mg/dL (8.4-25.7); Bilirubin, Total 2.5 mg/dL (0.2-1.2); Calc. Creatinine Clearance 0 mL/min (70-130); Carbon Dioxide 28 mmol/L (22-29); Chloride 95 mmol/L (98-107); Estimated GFR-MDRD Greater than 90; Globulin 3.8 g/dL (2.4-3.5); Glucose 276 mg/dL (70-105); Potassium 4.9 mmol/L (3.5-5.1); Protein, Total 6.7 g/dL (6.0-8.3); Sodium 127 mmol/L (136-145)
--- NOTE | 2019-03-05 20:58 | CT ---
EXAM: CT pulmonary angiogram with IV contrast and 3-D MIP reconstructions PROVIDED CLINICAL HISTORY: Chest pain COMPARISON: None FINDINGS: There is no evidence for central or segmental pulmonary embolus. There is patchy, primarily linear pa renchymal opacity involving the left lower lobe. No pleural fluid or pneumothorax apparent. No evidence for thoracic lymph node enlargement. The airway appears patent and of normal caliber. The vi sualized portions of the upper abdomen demonstrate no acute findings. The osseous structures demonstrate no concerning lytic or blastic lesions. Changes of prior TIPS and splenomegaly noted. IMPRESSION: 1. No evidence for central or segmental pulmonary embolus. 2. Patchy primarily linear parenchymal opacity involving the left lower lobe. This may reflect subseg mental atelectasis and/or pneumonia.
[2019-03-05] MEDS ORDERED: Vancomycin HCl 1.5 GM in Sodium Chloride 0.9% 250 ML 300 ML IVPB SCH (21:30)
[2019-03-05] MEDS ORDERED: Piperacillin/Tazobactam 4.5 GM VIAL ONE (21:44)
[2019-03-05] MEDS ORDERED: Ondansetron PF 4 MG/2 ML Vial IVP PRN (23:36)
[2019-03-05] MEDS ORDERED: Acetaminophen 325 MG TAB PO PRN (23:36)
[2019-03-05] MEDS ORDERED: Ondansetron ODT 4 MG TAB SL PRN (23:36)
[2019-03-06] MEDS ORDERED: Diabetic Tussin 200 MG/10 ML UDCUP PO PRN (04:27)
[2019-03-06] MEDS ORDERED: Acetaminophen 500 MG TAB PO PRN (04:27)
[2019-03-06] MEDS ORDERED: Benzonatate 100 MG CAP PO PRN (04:27)
[2019-03-06] MEDS ORDERED: Ondansetron PF 4 MG/2 ML Vial IVP PRN (04:27)
[2019-03-06] MEDS ORDERED: Ibuprofen 200 MG TAB PO PRN (04:27)
[2019-03-06] MEDS ORDERED: Ondansetron ODT 4 MG TAB PO PRN (04:27)
[2019-03-06] MEDS ORDERED: PROVENTIL INHALER 6.7 G (200 INHALATIONS) INH PRN (04:45)
[2019-03-06] MEDS ORDERED: Clopidogrel Bisulfate 75 MG TAB ONE (06:07)
[2019-03-06] MEDS: Cefepime 2 GM in Sodium Chloride 0.9% 100 ML IVPB SCH ×2 (07:27→17:09)
--- NOTE | 2019-03-06 07:53 | HP ---
PRIMARY CARE PROVIDER: [facility]. CHIEF COMPLAINT: Generalized weakness and dizziness. HISTORY OF PRESENT ILLNESS: This is a 58-year-old male, who presents to [facility] Emergency Department from [facility] complaining of generalized weakness, falls, and shortness of breath. The patient was recently admitted to [facility] from 02/18/2019 through 02/22/2019 for pneumonia. The patient was discharged on Omnicef 300 mg b.i.d. for approximately 1 week after discharge. The patient states he completed his medication regimen, but states he felt out of sorts, confused with dizziness and difficulty walking. The patient states he was transferred to [facility] where he was evaluated by his lead java programmer. The patient with longstanding history of hepatic cirrhosis and hepatitis C, managed with diuretics and lactulose. The patient denied any increased lower extremity swelling, but felt like his abdomen had increased in size. The patient states he has been compliant with his lactulose therapy and has regular bowel movements. The patient denies any documented fever, but states he lives in the [facility] unit at [facility]. In the emergency room, the patient underwent general evaluation including chest imaging showing no acute infiltrate. CT angiogram of the chest was also performed showing evidence of left lower lobe atelectasis with questionable residual infectious process. No evidence for pulmonary embolus identified. The patient received vancomycin, Zosyn, and intravenous normal saline in the emergency room. PAST MEDICAL HISTORY: 1. Hepatic cirrhosis secondary to alcohol abuse and hepatitis C. 2. Glaucoma. 3. Hypertension. 4. Gastric varices. PAST SURGICAL HISTORY: 1. Status post variceal banding. 2. Status post eye surgery secondary to glaucoma. 3. Status post TIPS procedure. CURRENT MEDICATIONS: 1. Lactulose 20 g p.o. b.i.d. to t.i.d. 2. Latanoprost 0.005% one drop to each eye at bedtime. 3. Alphagan 0.1% one drop to each eye t.i.d. 4. Omeprazole 40 mg p.o. daily. 5. Inderal 10 mg p.o. b.i.d. 6. Albuterol sulfate 2 puffs inhaled q.6 hours p.r.n. 7. Spironolactone 100 mg p.o. b.i.d. 8. Lasix 40 mg p.o. b.i.d. ALLERGIES: NO KNOWN DRUG ALLERGIES. FAMILY HISTORY: Positive for coronary artery disease. SOCIAL HISTORY: The patient is currently incarcerated at [place] [facility]. Prior history of alcohol abuse, none currently. Former illicit drug use. No tobacco currently. REVIEW OF SYSTEMS: CONSTITUTIONAL: Negative for weight loss or gain, ability to conduct usual activities. SKIN: Negative for rash, itching. EYES: Negative for double vision, pain. ENT/MOUTH: Negative for nose bleeding, neck stiffness, pain, tenderness. CARDIOVASCULAR: Negative for palpitations, dyspnea on exertion, orthopnea. RESPIRATORY: Negative for shortness of breath, wheezing, cough, hemoptysis, fever or night sweats. GASTROINTESTINAL: Negative for poor appetite, abdominal pain, heartburn, nausea, vomiting, constipation, or diarrhea. GENITOURINARY: Negative for urgency, frequency, dysuria, nocturia. MUSCULOSKELETAL: Negative for pain, swelling. NEUROLOGIC/PSYCHIATRIC: Negative for anxiety, depression. ALLERGY/IMMUNOLOGIC: Negative for skin rash, bleeding tendency. Otherwise negative except as stated per HPI. PHYSICAL EXAMINATION: VITAL SIGNS: On admission. Blood pressure 102/63, pulse 82, respiratory rate 20, temperature 97.9 degrees Fahrenheit, O2 saturation 95% on room air. GENERAL APPEARANCE: This is a 58-year-old male, ill appearing, tremulous, alert and responsive. HEENT: Pupils are equal, round, reactive to light and accommodation. Extraocular muscles are intact. Mild scleral icterus. Nares are patent. Op is clear. Teeth in fair repair. NECK: Supple. No cervical adenopathy. No thyromegaly. No carotid bruits. No JVD appreciated. Cervical spine with full active and passive range of motion. No meningeal signs noted. CHEST: Diminished breath sounds in the bases bilaterally. CARDIOVASCULAR: S1, S2 without noted murmur, rub, or gallop. ABDOMEN: Rounded, soft, nontender, nondistended. Hepatomegaly noted. No palpable mass. No rebound or guarding appreciated. EXTREMITIES: Warm and dry with fair turgor. No clubbing, cyanosis, or asymmetric edema appreciated. Pulses are palpable distally at the dorsalis pedis, posterior tibial, and popliteal arteries bilaterally. Capillary refill is less than 2 seconds. NEUROLOGIC: Cranial nerves 2 through 12 are grossly intact. Resting tremor noted. PERTINENT LAB AND X-RAY FINDINGS: Sodium 129, potassium 5.2, chloride 94, CO2 of 28, BUN 16, creatinine 0.82, glucose 276, calcium 9.0, total bilirubin 2.5, AST 100, ALT 81, alkaline phosphatase 189. BNP 16. Albumin 2.9. CBC showed a white blood cell count of 4.5, hemoglobin 11.6, hematocrit 34.1, MCV 109, platelet count 51 with 78% neutrophilia. Portable chest x-ray dated 03/05/2019, showed no acute cardiopulmonary process. CT angiogram of the chest dated 03/05/2019, showed no evidence for pulmonary embolus. Patchy opacity in the left lower lobe. EKG dated 03/05/2019, by my interpretation, shows sinus mechanism with heart rates in the 80s. Normal R-wave progression noted in the precordial leads. Normal axis. No acute ST-T wave changes appreciated. ASSESSMENT AND PLAN: 1. Left lower lobe pneumonia. Appears improved from prior chest imaging 02/18/2019. We will continue cefepime 2 g IV q.12 hours with additional Levaquin 750 mg IV q.24 hours. Bronchodilator therapy with albuterol sulfate. 2. Hepatic cirrhosis. Appears compensated currently. Resume outpatient regimen to include lactulose 20 g b.i.d. with additional spironolactone 100 mg p.o. b.i.d. 3. Pancytopenia secondary to #2. Stable. No current evidence to suggest acute blood loss. Repeat CBC and monitor trend. 4. Metabolic encephalopathy. Secondary to #2. Resume lactulose 20 g p.o. b.i.d. Check ammonia level currently. 5. Prophylaxis. SCDs while in bed. Pepcid 20 mg p.o. b.i.d. 6. Code status is full. Surrogate medical decision maker, [place] [facility]. Job ID: [id number]
[2019-03-06] MEDS: Famotidine 20 MG TAB PO SCH ×2 (08:35→20:36)
[2019-03-06] MEDS: Furosemide 40 MG TAB PO SCH ×2 (08:36→17:08)
[2019-03-06] MEDS: Brimonidine Tartrate 0.2% Ophth Soln 5 ml Bottle EA EYE SCH ×3 (08:38→20:36)
[2019-03-06] MEDS: Spironolactone 100 MG TAB PO SCH (10:20)
[2019-03-06] MEDS: Propranolol 10 MG TAB PO SCH ×2 (10:20→20:37)
[2019-03-06 12:42] VITALS: BMI 26.4
--- NOTE | 2019-03-06 19:58 | PDOC.PN ---
- Subjective Encounter Start Date: 03/06/19 Encounter Start Time: 13:00 Subjective: patient examined, initially eating lunch, denied new complaints -: Returned and woke him up from a nap to finish exam -: Reports still feeling SOB, although a bit better - Objective Resuscitation Status - Order Detail: 03/06/19 04:21 Resuscitation Status Routine Resuscitation Status: FULL: Full Resuscitation Vital Signs & Weight: Vital Signs (12 hours) Temp Pulse Resp BP Pulse Ox 03/06/19 16:00 98.5 F 87 18 97/57 L 97 03/06/19 12:00 98.2 F 92 18 103/64 97 03/06/19 08:00 98.3 F 91 18 106/65 98 Weight Admit Weight 76.43 kg Weight 76.43 kg I&O: 03/05/19 03/06/19 03/07/19 06:59 06:59 06:59 Intake Total 250 Balance 250 Result Diagrams: 03/07/19 04:54 03/07/19 04:54 Phys Exam - Physical Examination HEENT: PERRLA, moist MMs Neck: no nodes, no JVD Respiratory: clear to auscultation bilateral Cardiovascular: RRR Gastrointestinal: positive bowel sounds Generalized mild tenderness to abdomen, mild distension Musculoskeletal: pulses present Neurological: non-focal, normal sensation Lymphatic: no nodes Dx/Plan (1) Hyponatremia Code(s): E87.1 - HYPO-OSMOLALITY AND HYPONATREMIA Status: Acute (2) Ascites Code(s): R18.8 - OTHER ASCITES Status: Acute Qualifiers: Ascites type: other type Qualified Code(s): R18.8 - Other ascites Comment: Improved, continue diuretics (3) Pneumonia Code(s): J18.9 - PNEUMONIA, UNSPECIFIED ORGANISM Status: Acute Qualifiers: Pneumonia type: due to unspecified organism Laterality: bilateral (4) SOB (shortness of breath) Code(s): R06.02 - SHORTNESS OF BREATH Status: Acute Comment: Secondary to ascites and pleural effusion (5) Cirrhosis Code(s): K74.60 - UNSPECIFIED CIRRHOSIS OF LIVER Status: Chronic Comment: Secondary to Hep C (6) HTN (hypertension) Code(s): I10 - ESSENTIAL (PRIMARY) HYPERTENSION Status: Chronic Qualifiers: Hypertension type: essential hypertension Qualified Code(s): I10 - Essential (primary) hypertension (7) Hepatitis C Code(s): B19.20 - UNSPECIFIED VIRAL HEPATITIS C WITHOUT HEPATIC COMA Status: Chronic Qualifiers: Viral hepatitis chronicity: chronic Hepatic coma status: without hepatic coma Qualified Code(s): B18.2 - Chronic viral hepatitis C Comment: Chronic - Plan cont current plan of care, continue antibiotics Continue antibiotics, lactulose -: If improved tomorrow, may DC back to [facility] -: Recheck labs in AM -: Will continue to monitor * .
[2019-03-06] MEDS ORDERED: Dextrose 5% in Water 1,000 ML IV PRN (20:14)
[2019-03-06] MEDS ORDERED: Dextrose 50% Abboject 50 ML SYRINGE SLOW IVP PRN (20:14)
[2019-03-06] MEDS: Latanoprost 0.005% Ophth Soln 2.5 ml Bottle EA EYE SCH (20:36)
[2019-03-06] MEDS: HumaLOG 300 UNITS/3 ML VIAL SC PRN (20:37)
[2019-03-07] MEDS: Cefepime 2 GM in Sodium Chloride 0.9% 100 ML IVPB SCH ×2 (04:25→17:50)
[2019-03-07 05:42] LABS: ALT (SGPT) 79 U/L (8-55); AST (SGOT) 93 U/L (5-34); Alkaline Phosphatase 150 U/L (40-150); Anion Gap 9 mmol/L (10-20); BUN (Urea Nitrogen) 10 mg/dL (8.4-25.7); Bilirubin, Total 3.3 mg/dL (0.2-1.2); Calc. Creatinine Clearance 129 mL/min (70-130); Calcium 9.1 mg/dL (7.8-10.44); Carbon Dioxide 24 mmol/L (22-29); Chloride 101 mmol/L (98-107); Estimated GFR-MDRD Greater than 90; Glucose 106 mg/dL (70-105); Potassium 4.6 mmol/L (3.5-5.1); Sodium 129 mmol/L (136-145)
[2019-03-07 05:59] LABS: Hemoglobin 12.6 g/dL (14.0-18.0); Hypochromia SLIGHT = 6-15 cells (100X) (0-5/hpf); Lymphocytes 4 % (21-51); MDiff Complete? YES; Macrocytosis SLIGHT = 6-15 cells (100X) (0-5/hpf); Mean Corpuscular HGB CONC 34.2 g/dL (32.0-36.0); Mean Corpuscular Hemoglobin 37.5 pg (27.0-31.0); Mean Platelet Volume 8.3 fL (7.4-10.4); Monocytes 6 % (0-10); Neutrophil 90 % (42-75); Platelet Count 56 thou/uL (130-400); Platelet Morphology Comment Appears Decreased; RBC Distribution Width 14.5 % (11.5-14.5); Red Blood Cell (RBC) Count 3.36 mill/uL (4.70-6.10); White Blood Cell (WBC) Count 4.4 thou/uL (4.8-10.8)
[2019-03-07] MEDS: Brimonidine Tartrate 0.2% Ophth Soln 5 ml Bottle EA EYE SCH ×3 (09:08→20:03)
[2019-03-07] MEDS: Famotidine 20 MG TAB PO SCH ×2 (09:08→20:03)
[2019-03-07] MEDS: Spironolactone 100 MG TAB PO SCH (11:12)
[2019-03-07] MEDS: Furosemide 40 MG TAB PO SCH ×2 (11:15→14:32)
[2019-03-07] MEDS: Propranolol 10 MG TAB PO SCH ×2 (11:15→20:03)
[2019-03-07] MEDS: HumaLOG 300 UNITS/3 ML VIAL SC PRN ×3 (12:43→20:07)
[2019-03-07 16:46] LABS: Troponin I Less than 0.010 ng/mL (< 0.028)
[2019-03-07 19:55] VITALS: BP 96/60; TEMP 98.4
[2019-03-07] MEDS: Latanoprost 0.005% Ophth Soln 2.5 ml Bottle EA EYE SCH (20:03)
--- NOTE | 2019-03-08 17:08 | EKG ---
Test Reason : Blood Pressure : / mmHG Vent. Rate : 078 BPM Atrial Rate : 078 BPM P-R Int : 140 ms QRS Dur : 094 ms QT Int : 388 ms P-R-T Axes : -02 030 013 degrees QTc Int : 442 ms Normal sinus rhythm widespread st elevatiom most c/w repolarization variant When compared with ECG of 05-MAR-2019 18:44, (Unconfirmed) Sinus rhythm has replaced Junctional rhythm Confirmed by DR. Alondra JOSHUA ([id number]) on 03/08/2019 5:07:27 PM Referred By: ROBB Confirmed By:DR. Alondra JOSHUA
== END 2019-03-07 20:35 | disposition home or self-care (01) ==
LOC: ERS 18:34 → T4-B 23:29 → INTOOBSV 23:29
PROVIDERS: ADMIT Family Medicine; ATTEND Family Medicine
DX: R53.1 Weakness (principal); R42 Dizziness and giddiness; I10 Essential (primary) hypertension; J18.1 Lobar pneumonia, unspecified organism; B18.2 Chronic viral hepatitis C; K70.31 Alcoholic cirrhosis of liver with ascites; D61.818 Other pancytopenia; G93.41 Metabolic encephalopathy; E87.1 Hypo-osmolality and hyponatremia; Z79.899 Other long term (current) drug therapy; Z98.890 Other specified postprocedural states
CPT/HCPCS: 36415; 36416; 71045; 71275; 80053; 82140; 82330; 82803; 83880; 84484; 85007; 85025; 85027; 85379; 93005; 93010; 96361; 96365; 96366; 96367; 96375; 96376; G0378; J0692; J1956; J2543; J3370; J3490; J7050; Q9966

== ENCOUNTER 2019-03-21 14:01 | Inpatient (IN) | payer OTHER ==
[2019-03-21 14:49] LABS: #Basophils 0.1 thou/uL (0.0-0.2); #Lymphocytes 0.3 thou/uL (1.20-3.40); #Monocytes 0.5 thou/uL (0.11-0.59); #Neutrophils 7.8 thou/uL (1.40-6.50); %Basophils 1.6 % (0.0-1.0); %Eosinophils 0.5 % (0.0-10.0); %Lymphocytes 3.6 % (21.0-51.0); %Monocytes 5.9 % (0.0-10.0); %Neutrophils 88.5 % (42.0-75.0); Hemoglobin 11.9 g/dL (14.0-18.0); Mean Corpuscular HGB CONC 36.1 g/dL (32.0-36.0); Mean Corpuscular Hemoglobin 38.5 pg (27.0-31.0); Mean Platelet Volume 7.7 fL (7.4-10.4); Platelet Count 49 thou/uL (130-400); RBC Distribution Width 14.7 % (11.5-14.5); White Blood Cell (WBC) Count 8.8 thou/uL (4.8-10.8)
--- NOTE | 2019-03-21 14:50 | CT ---
CT head noncontrast HISTORY: Altered mental status. FINDINGS: No comparison. There is no evidence of acute intracranial hemorrhage or infarct. The ventri cles appear normal in size, shape and position. There is no mass effect or shift of midline structures. Visualized paranasal sinuses remain well-aerated. There are no acute intracranial abnorma lities are demonstrated.
[2019-03-21 15:03] LABS: ALT (SGPT) 59 U/L (8-55); AST (SGOT) 65 U/L (5-34); Albumin 3.1 g/dL (3.5-5.0); Alkaline Phosphatase 163 U/L (40-150); Anion Gap 7 mmol/L (10-20); BUN (Urea Nitrogen) 13 mg/dL (8.4-25.7); Bilirubin, Total 3.4 mg/dL (0.2-1.2); Calc. Creatinine Clearance 0 mL/min (70-130); Calcium 9.2 mg/dL (7.8-10.44); Carbon Dioxide 23 mmol/L (22-29); Chloride 102 mmol/L (98-107); Estimated GFR-MDRD Greater than 90; Globulin 3.9 g/dL (2.4-3.5); Glucose 294 mg/dL (70-105); Lipase 29 U/L (8-78); Potassium 5.4 mmol/L (3.5-5.1); Sodium 127 mmol/L (136-145)
[2019-03-21 15:15] LABS: Bilirubin Negative (Negative); Blood, Urine Negative (Negative); Clarity Turbid (Clear); Glucose, Urine (Dipstick) 100 mg/dL (Negative); Leukocyte Negative Leu/uL (Negative); Nitrite Negative (Negative); Protein, Urine (Dipstick) Negative (Neg-Trace); Urobilinogen Normal mg/dL (Less than 2)
--- NOTE | 2019-03-21 15:39 | RAD ---
RADIOGRAPH CHEST 1 VIEW: Date: Time: 2:19 p.m. HISTORY: 59-year-old male with history of pneumonia. COMPARISON: 03-05-19 FINDINGS: The lungs are hypoinflated. Nonspecific faint mild pulmonary ill-defined densities at left lower lung zone, and perhaps on the right. Upper lung zones are grossly clear. No pneumothorax. Lateral costoph renic angles are sharp. No major interval change. IMPRESSION: Nonspecific mild left lower lobe infiltrate, incompletely imaged. JN POS: CET
[2019-03-21] MEDS ORDERED: Sodium Chloride 0.9% 100 ML ONE (16:11)
[2019-03-21] MEDS ORDERED: Piperacillin/Tazobactam 4.5 GM VIAL ONE (16:11)
[2019-03-21] MEDS ORDERED: Dextrose 50% Abboject 50 ML SYRINGE SLOW IVP PRN (16:56)
[2019-03-21] MEDS ORDERED: Dextrose 5% in Water 1,000 ML IV PRN (16:56)
--- NOTE | 2019-03-21 17:36 | CT ---
NONCONTRAST CT THORAX: 03/21/19 HISTORY: Altered mental status. Recently discharged from [facility] after treatment for pneu monia. COMPARISON: 03/05/19. FINDINGS: There are linear densities seen at the right lung base most compatible with atelectasis. There are al so linear and slight ground glass densities at the left lung base with improvement in parenchymal pat jacqui densities noted on the prior exam. These findings may be related to either improving pneumonia o r atelectasis. No new area of consolidation or pleural fluid is seen. No pleural effusion is identified. Lack of intravenous contrast limits sensitivity for evaluation of the parenchymal organs as well as v asculature. However, no definite enlarged lymph nodes are seen. The heart remains mildly enlarged. There is evidence of gynecomastia bilaterally. Again noted is evidence of a portal systemic shunt secondary to prior TIPS. Spleen is enlarged. This is better visualized on prior exam. There is question of gastric wall thickening, but this may be related to incomplete distention. Minimal vascular calcifications are seen in the thoracic aorta. No other interval change. IMPRESSION: 1. Improvement in parenchymal opacities at the left lung base with residual linear and ground gl ass densities noted in the left lower lobe. These findings may be related to either improving atelect asis or pneumonia. No new area of consolidation or pleural fluid is seen. 2. Evidence of cirrhotic morphology of the liver with evidence of prior portosystemic shunt plac ement. 3. Splenomegaly. POS: RINA
--- NOTE | 2019-03-21 18:04 | RAD ---
KUB: 03/21/2019 COMPARISON: None HISTORY: Cirrhosis, hepatitis C, abdominal pain FINDINGS: There is a single mildly prominent loop of small bowel within the left lower abdomen medial ly. Shunt material overlies the liver suggesting a TIPS. The bowel gas pattern appears nonobstructed. Evaluation for bowel obstruction and free intraperitonea l air is limited on supine imaging. IMPRESSION: KUB as above.
[2019-03-21 21:29] VITALS: BMI 27.7
[2019-03-21] MEDS: Propranolol 10 MG TAB PO SCH (21:37)
[2019-03-21] MEDS: Piperacillin/Tazobactam 3.375 GM in Sodium Chloride 0.9% 100 ML IVPB SCH (22:00)
[2019-03-21] MEDS: Rifaximin 550 MG TAB PO SCH (22:00)
[2019-03-21] MEDS: Brimonidine Tartrate 0.2% Ophth Soln 5 ml Bottle EA EYE SCH (22:00)
--- NOTE | 2019-03-21 22:17 | HP ---
CHIEF COMPLAINT: Shortness of breath and change in mental status. HISTORY OF PRESENT ILLNESS: The patient is a 59-year-old male, who is an inmate, who presented to the hospital with complaints of change in mental status and shortness of breath. Initially, the ER told me that he was presented to the hospital for change in mental status; however, when I called over and spoke with the nurse at the [facility], she stated that he has been complaining of some shortness of breath for the past couple of days. The patient currently is lying flat in bed. Denies any nausea, or vomiting; however, does complain of some abdominal pain and states that he has been having some cough with mild clear sputum production. He denies any fevers; however, is very cold and has some chills. The patient denies any chest pain or chest pressure. He was recently admitted to the hospital in [place] about a couple of weeks ago and I did ask for records from the [facility] in regard to this to get a little bit more better idea of what is going on with the patient. Apparently, he was recently treated for pneumonia, unknown which side of the lung. PAST MEDICAL HISTORY: As of the followin. History of hepatitis C cirrhosis. He has also had multiple paracentesis. 2. Hypertension. 3. Glaucoma. 4. Diabetes. PAST SURGICAL HISTORY: He has had TIPS procedure. He also has had surgery for glaucoma. He has had variceal bleed and multiple paracentesis according to the patient. ALLERGIES: HE HAS NO KNOWN DRUG ALLERGIES. MEDICATIONS: 1. Lactulose 30 mL 3 times a day. 2. Latanoprost eyedrops at bedtime. 3. Omeprazole 20 mg daily. 4. Propranolol 10 mg b.i.d. 5. Terazosin 2 mg daily. 6. Rifaximin 600 mg twice a day. 7. Lasix 40 mg twice a day. SOCIAL HISTORY: He is an inmate. He has a history of alcohol abuse and former drug use and also smoking history. Currently, of course, he is not using none. FAMILY HISTORY: Significant for heart disease. REVIEW OF SYSTEMS: All negative except the ones mentioned above in the HPI. PHYSICAL EXAMINATION: VITAL SIGNS: As of the following; temperature of 98.8, heart rate 99, respiratory rate 20, O2 saturation 99% on room air, blood pressure 112/74. GENERAL: He is awake, alert, and oriented x2. Appears ill. CV: S1 and S2 present. No murmurs, rubs, or gallops. LUNGS: He has mild rhonchi all over lungs, decreased breath sounds to bilateral lung lower bases. ABDOMEN: Bowel sounds are present x2. No significant distention noted. However, he does have pain upon palpation all over abdomen. EXTREMITIES: No edema. Pedal pulses are present x2. NEUROVASCULAR: No focal deficits noted. SKIN: No cuts, lesions, or bruises noted. LABORATORY RESULTS: As of the following; WBCs of 8.8, hemoglobin of 11.9, hematocrit of 33.0. His platelets are 49. He has no bands. He does have an elevated neutrophils at 88.5. His chemistry; sodium of 127, potassium of 5.4, BUN of 13, creatinine 0.81, glucose of 294. His bilirubin is 3.4, AST 65, ALT is 59, alkaline phosphatase is 163. He did have a CT head, which did not indicate any acute abnormalities. He did have a CT chest, which indicated opacity in the left lung with residual linear and glass ground densities and just splenomegaly was noted. He also had a chest x-ray, which indicated that he does have some possible atelectasis versus pneumonia on his left lower lung. ASSESSMENT AND PLAN: The patient is a 59-year-old male, who presents to the hospital with complaints of altered mental status with shortness of breath. 1. Acute metabolic encephalopathy. The patient's ammonia was checked and it was normal at 45. I do not believe this patient has any pneumonia at this time. He has had a previous pneumonia in the left lower lung and I am not exactly sure, which lung he was treated for a couple of weeks ago at [place], but I am assuming it is probably the left lung since his CT does show some residual atelectasis versus resolving pneumonia on the left lower side. I have asked him for records. Also, I am not sure this is decompensation of his cirrhosis. I will get a paracentesis and I will also start him on antibiotics just because he is having significant abdominal pain on palpation. I am not sure if he has had any history of SBP. If he does have fluid, I will do a paracentesis and send his fluid for further analysis. 2. Shortness of breath. Again, I do not see any echocardiogram. I think his last echo was in 2018. I will repeat an echocardiogram for further evaluation of his heart. 3. Hyponatremia. This is possibly due to his underlying cirrhosis. Again, we will continue to monitor. 4. Diabetes. I will put the patient on Accu-Cheks before meals and at bedtime and also I will put him on some Lantus since his sugars are really out of control. 5. DVT prophylaxis. We will put the patient on subcu heparin or SCDs since his platelets are actually kind of low. 6. The patient's overall prognosis is really poor. I will try and see if I can get some family in regard to discussing code status with this patient and may also consider getting palliative care team to be involved in this patient. Job ID: [id number]
[2019-03-22] MEDS: Piperacillin/Tazobactam 3.375 GM in Sodium Chloride 0.9% 100 ML IVPB SCH ×2 (05:04→10:15)
[2019-03-22 06:13] LABS: ALT (SGPT) 52 U/L (8-55); AST (SGOT) 55 U/L (5-34); Albumin 2.9 g/dL (3.5-5.0); Alkaline Phosphatase 132 U/L (40-150); Anion Gap 12 mmol/L (10-20); BUN (Urea Nitrogen) 11 mg/dL (8.4-25.7); Bilirubin, Total 3.3 mg/dL (0.2-1.2); Calc. Creatinine Clearance 127 mL/min (70-130); Calcium 9.3 mg/dL (7.8-10.44); Carbon Dioxide 18 mmol/L (22-29); Chloride 104 mmol/L (98-107); Estimated GFR-MDRD Greater than 90; Globulin 3.9 g/dL (2.4-3.5); Glucose 199 mg/dL (70-105); Potassium 4.6 mmol/L (3.5-5.1); Protein, Total 6.8 g/dL (6.0-8.3); Sodium 129 mmol/L (136-145)
[2019-03-22 06:22] LABS: #Eosinphils 0.1 thou/uL (0.0-0.7); #Lymphocytes 0.4 thou/uL (1.20-3.40); #Monocytes 0.4 thou/uL (0.11-0.59); #Neutrophils 4.5 thou/uL (1.40-6.50); %Basophils 0.4 % (0.0-1.0); %Eosinophils 2.5 % (0.0-10.0); %Lymphocytes 7.9 % (21.0-51.0); %Neutrophils 81.3 % (42.0-75.0); Anisocytosis SLIGHT = 6-15 cells (100X) (0-5/hpf); Hemoglobin 11.9 g/dL (14.0-18.0); MDiff Complete? YES; Mean Corpuscular HGB CONC 36.7 g/dL (32.0-36.0); Mean Corpuscular Hemoglobin 39.4 pg (27.0-31.0); Platelet Count 46 thou/uL (130-400); Platelet Morphology Comment Appears Decreased; Red Blood Cell (RBC) Count 3.01 mill/uL (4.70-6.10); White Blood Cell (WBC) Count 5.5 thou/uL (4.8-10.8)
[2019-03-22 07:38] LABS: INR-International Normal Ratio 1.4; PTT 34.1 SEC (22.9-36.1); Prothrombin Time 17.3 SEC (12.0-14.7)
[2019-03-22] MEDS ORDERED: Sodium Bicarbonate 2.5 MEQ/5 ML VIAL ONE (07:48)
[2019-03-22] MEDS ORDERED: Lidocaine 1% PF 5 ML VIAL ONE (07:48)
[2019-03-22] MEDS: Rifaximin 550 MG TAB PO SCH ×2 (07:57→20:31)
[2019-03-22] MEDS: Brimonidine Tartrate 0.2% Ophth Soln 5 ml Bottle EA EYE SCH ×3 (07:57→20:31)
[2019-03-22] MEDS: Propranolol 10 MG TAB PO SCH ×2 (07:59→20:31)
--- NOTE | 2019-03-22 08:44 | ULT ---
Sonogram abdomen limited HISTORY: Abdominal pain. Evaluate for ascites. Cirrhosis. FINDINGS: Exam was originally scheduled as a therapeutic paracentesis. Sonographic survey shows no free fluid within the abdomen. Therefore the paracentesis is not needed o r possible. IMPRESSION: No free fluid within the abdomen.
[2019-03-22] MEDS ORDERED: Enoxaparin Sodium 40 MG/0.4 ML SYRINGE SC SCH (09:00)
[2019-03-22] MEDS: Insulin Glargine 5 UNITS in Pre-Filled Syringe SC SCH (11:02)
[2019-03-22] MEDS: HumaLOG 300 UNITS/3 ML VIAL SC PRN ×3 (11:03→20:30)
--- NOTE | 2019-03-22 14:40 | PDOC.HOSPP ---
- Subjective Subjective: pt up in bed complains of pain to his abd. He states it is nothing new. - Objective Vital Signs & Weight: Vital Signs (12 hours) Temp Pulse Resp BP Pulse Ox 03/22/19 10:40 92 20 99 03/22/19 08:30 98.4 F 93 20 99/59 L 98 03/22/19 08:00 98 03/22/19 07:32 96 16 98 03/22/19 04:00 98.0 F 94 18 102/65 96 Weight Weight 177 lb I&O: 03/21/19 03/22/19 03/23/19 06:59 06:59 06:59 Intake Total 600 Balance 600 Result Diagrams: 03/22/19 05:09 03/22/19 05:09 Additional Labs: Accuchecks 03/22/19 03/22/19 03/21/19 11:00 05:12 22:11 POC Glucose 278 H 199 H 213 H ROS - Review of Systems All systems: All other ROS were reviewed and found negative. ENT: denies: ear pain, ear discharge, nose pain, nose discharge, nose congestion , mouth pain, mouth swelling, throat pain, throat swelling, other Respiratory: denies: cough, dry, shortness of breath, hemoptysis, SOB with excertion, pleuritic pain, sputum, wheezing, other Cardiovascular: denies: chest pain, palpitations, orthopnea, paroxysmal noc. dyspnea, edema, light headedness, other Gastrointestinal: reports: abdominal pain - Medication Medications: Active Medications Generic Name Dose Route Start Last Admin Trade Name Freq PRN Reason Stop Dose Admin Albuterol/Ipratropium 3 ml 03/21/19 18:30 03/22/19 14:28 Duoneb NEB Not Given [id number] KATIUSKA Brimonidine Tartrate 1 drop 03/21/19 21:00 03/22/19 07:57 Alphagan 0.2% Ophth Soln EA EYE 1 drop TID KATIUSKA Administration Insulin Glargine 5 units/ 0.05 mls @ 0 mls/hr 03/22/19 09:00 03/22/19 11:02 Miscellaneous Medication SC Not Given QAM KATIUSKA Insulin Human Lispro 0 units 03/21/19 16:56 03/22/19 11:03 Humalog SC 4 unit .MILD SLIDING SCALE PRN Administration Mild Correctional Scale Lactulose 30 gm 03/21/19 21:00 03/22/19 07:56 Lactulose PO 30 gm BID KATIUSKA Administration Pantoprazole Sodium 40 mg 03/22/19 09:00 03/22/19 07:57 Protonix PO 40 mg DAILY KATIUSKA Administration Propranolol HCl 10 mg 03/21/19 21:00 03/22/19 07:59 Inderal PO 10 mg BID KATIUSKA Administration Rifaximin 550 mg 03/21/19 21:00 03/22/19 07:57 Xifaxan PO 550 mg BID KATIUSKA Administration - Exam Heart: negative: RRR, no murmur, no gallops, no rubs, normal peripheral pulses, irregular, diminshed peripheral pulses, murmur present, II/IV, III/IV Respiratory: negative: CTAB, no wheezes, no rales, no ronchi, normal chest expansion, no tachypnea, normal percussion, rales, rhonchi, tachypneic, wheezes Gastrointestinal: soft (mild pain on palpation all over) Hosp A/P (1) Pain in the abdomen Code(s): R10.9 - UNSPECIFIED ABDOMINAL PAIN Status: Acute (2) SOB (shortness of breath) Code(s): R06.02 - SHORTNESS OF BREATH Status: Acute (3) Hepatitis C Code(s): B19.20 - UNSPECIFIED VIRAL HEPATITIS C WITHOUT HEPATIC COMA Status: Chronic Qualifiers: - Plan Not enough fluid to do pracentesis. will discontinue abx. Echo pending. i will order a bnp. if normal will discharge back to his facility.
[2019-03-22] MEDS ORDERED: Non-Formulary Item 1 EACH (Ferrous Sulfate [Ferrous Sulfate] 325 MG) PO SCH (15:00)
[2019-03-22] MEDS ORDERED: NUTRITIONAL SUPPLEMENT PO SCH (15:00)
[2019-03-22] MEDS ORDERED: [UNRECOGNIZED DRUG - OTHER] PO SCH (15:00)
[2019-03-22] MEDS: Ferrous Sulfate 325 MG TAB PO SCH ×2 (15:34→20:30)
[2019-03-22] MEDS: Midodrine HCl 5 MG TAB PO SCH (20:31)
[2019-03-22 20:57] VITALS: TEMP 97.9
[2019-03-22] MEDS ORDERED: Latanoprost 0.005% Ophth Soln 2.5 ml Bottle EA EYE SCH (21:00)
[2019-03-22] MEDS ORDERED: Terazosin HCl 1 MG CAP PO SCH (21:00)
[2019-03-22] MEDS ORDERED: Non-Formulary Item 1 EACH (Latanoprost/Pf [Latanoprost 0.005% Eye Drop] 1 DROP) EA EYE SCH (21:00)
[2019-03-23] MEDS ORDERED: Spironolactone 25 MG TAB PO SCH (08:00)
[2019-03-23] MEDS ORDERED: Spironolactone 100 MG TAB PO SCH (08:00)
[2019-03-23] MEDS: Midodrine HCl 5 MG TAB PO SCH (08:06)
[2019-03-23] MEDS: Propranolol 10 MG TAB PO SCH (08:06)
[2019-03-23] MEDS: Ferrous Sulfate 325 MG TAB PO SCH ×2 (08:06→15:40)
[2019-03-23] MEDS: Rifaximin 550 MG TAB PO SCH (08:06)
[2019-03-23] MEDS: Insulin Glargine 5 UNITS in Pre-Filled Syringe SC SCH (08:06)
[2019-03-23] MEDS: Brimonidine Tartrate 0.2% Ophth Soln 5 ml Bottle EA EYE SCH ×2 (08:44→15:40)
[2019-03-23] MEDS ORDERED: Furosemide 20 MG TAB PO SCH (09:00)
[2019-03-23] MEDS ORDERED: Non-Formulary Item 1 EACH (Terazosin Hcl [Terazosin Hcl] 2 MG) PO SCH (09:00)
[2019-03-23] MEDS: HumaLOG 300 UNITS/3 ML VIAL SC PRN ×2 (11:47→16:22)
[2019-03-23 15:36] VITALS: BP 105/55
--- NOTE | 2019-03-23 21:18 | DIS ---
DATE OF ADMISSION: 03/21/2019 DATE OF DISCHARGE: 03/23/2019 DISCHARGE DIAGNOSIS: 1. Pain in the abdomen. 2. Shortness of breath. 3. Hep C. 4. Possible pneumonia. HOSPITAL COURSE: The patient is a 59-year-old male who initially presented to the hospital with multiple complaints either an altered mental status versus pneumonia. When I did call the [facility], I was told that he was having shortness of breath. Please refer to my H and P for further details. Initially, the patient had no white count. I did do a CT chest, which indicated a left lower lung possible atelectasis and some mild parenchymal opacities. However, the patient prior to this had been treated with antibiotics at [facility] and also prior to that, he was treated with us earlier in February with the antibiotics for pneumonia. The patient had no leukocytosis. He had no cough. No fevers, and the CT appeared to be similar. At this time, I discontinue the antibiotics. The patient also at this time stated that he had abdominal pain. I did get a possible ultrasound-guided paracentesis, however, he had no fluid that was present for paracentesis. The patient's BNP was 25, his thyroid was normal. His ammonia was 43. The patient had no other symptoms. He continued to improve throughout the hospital stay. However, at times, he will just become very tachypneic. I am not sure if this is secondary to anxiety versus his underlying liver disease. The patient's vitals are stable and his labs are stable from his baseline and he has been up and ambulating per nursing staff and has been doing really well. The patient will be discharged back to his [facility]. MEDICATIONS: He is going to continue on: 1. Rifaximin 200 mg b.i.d. 2. Lactulose 30 mL t.i.d. 3. Spironolactone, I did decrease the dose from 100 to 50 mg daily. 4. Omeprazole 40 mg daily. 5. Propranolol 10 mg b.i.d. 6. Lasix 20 mg daily. 7. Midodrine 5 mg p.o. b.i.d. PHYSICAL EXAMINATION: VITAL SIGNS: 97.7, 82, 19, 99% on room air, 107/66. GENERAL: He is awake, alert, and oriented x3. Does not appear in distress. CV: S1 and S2 present. No murmurs, rubs, or gallops. ABDOMEN: Soft and nontender. Bowel sounds are present x2. EXTREMITIES: No edema. Again, he will be discharged back to the [facility]. He will follow up with his primary. Job ID: [id number]
--- NOTE | 2019-03-25 10:24 | PQF ---
SHANIKA RAMIREZ KARISHMA [id number] CLINICAL DOCUMENTATION IMPROVEMENT CLARIFICATION FORM: ICD-10 Updated PLEASE DO AN ADDENDUM TO THE PROGRESS NOTE WITH ANY DOCUMENTATION UPDATES OR ADDITIONS AND CARRY THROUGH TO DC SUMMARY. THANK YOU. DATE: 03/25/19 ATTN:DR. Bailee MORRISON Please exercise your independent, professional judgment in responding to the clarification form. Clinical indicators are provided on the bottom of this form for your review. Please check appropriate box(s) to clarify if the following diagnosis has been ruled in or ruled out: PNEUMONIA [ ] Ruled in diagnosis [ ] Continue to treat [x ] Resolved [ x] Ruled out diagnosis [ ] Other diagnosis [ ] Unable to determine In addition, please specify: Present on Admission (POA): [ ] Yes [ x ] No [ ] Unable to determine For continuity of documentation, please document condition throughout progress notes and discharge summary. Thank You. CLINICAL INDICATORS - SIGNS / SYMPTOMS / LABS 03/21 ED : PT DISCHARGED "A COUPLE OF DAYS AGO" WITH PNA,AMS PRIOR TO ADMIT TO ED ; ED PHYSICIAN FINAL DX: AMS, PNEUMONIA 03/21 CHEST X RAY: IMPRESSION-- NONSPECIFIC MILD LEFT LOWER LOBE INFILTRATE, INCOMPLETE IMAGED 03/[address]: IMPRESSION -- IMPROVEMENT IN PARENCHYMAL OPACITIES AT THE LEFT LUNG BASE WITH RESIDUAL LINEAR AND GROUND GLASS DENSITIES NOTED IN THE LEFT LOWER LOBE. THESE FINDINGS MAY BE RELATED TO EITHER IMPROVING ATELECTASIS OR PNEUMONIA. 03/21 H & P ([facility]) A/P : 1) PT PRESENTS FOR SOB, I DO NOT BELIEVE THE PATIENT HAS PNEUMONIA AT THIS TIME. HE HAS HAD A PREVIOUS PNEUMONIA IN THE LEFT LOWER LUNG AND I AM NOT EXACTLY SURE, WHICH LUNG HE WAS TREATED FOR A COUPLE OF WEEKS AGO AT [facility], BUT I AM ASSUMING IT IS PROBABLY THE LEFT LUNG SINCE HIS CT DOES SHOW SOME RESIDUAL ATELECTASIS VERSES RESOLVING PNEUMONIA ON THE LEFT LOWER SIDE. 03/23 DISCHARGE SUMMARY: DISCHARGE DX 4) POSSIBLE PNEUMONIA; PT INITIALLY PRESENTED TO THE HOSPITAL WITH MULTIPLE COMPLAINTS EITHER AN ALTERED MENTAL STATUS VERSES PNEUMONIA. RISK: RECENT DX PNEUMONIA ( H & P / [facility]IMJI) INMATE DX OF HEP C ( H & P / [facility]IMJI) TREATMENTS: NEB TREATMENTS CHEST CT CHEST XRAY ZOSYN IV ( MAR 21) THANK YOU! ROSETTA (This form is maintained as a part of the permanent medical record) 2014 [employer] All Rights Reserved MARIA DEL ROSARIO [email or web address] [phone] [email or web address]
--- NOTE | 2019-03-26 04:45 | PQF ---
[employer] Win[employer] SHANIKA RAMIREZ KARISHMA [id number] T4-B- [id number] [id number] CLINICAL DOCUMENTATION CLARIFICATION FORM: POST DISCHARGE Addendum to original discharge summary date: ____ Late entry note date: __ DATE: 03/26/19 ATTN: Alison Duvall Please exercise your independent, professional judgment in responding to the clarification form. Clinical indicators are provided on the bottom of this form for your review Can you please further specify the patient Encephalopathy? Please check appropriate box(s): [ ] Encephalopathy: Type: [ ] Acute [ ] Subacute [ ] Chronic Etiology: [ ] Hypertensive [ ] Metabolic [ ] Toxic [ ] Hepatic [ ] Hepatic and Metabolic [ ] Unspecified [ ] Other (please specify): [ ] Unable to determine For continuity of documentation, please document condition throughout progress notes and discharge summary. Thank You. CLINICAL INDICATORS - SIGNS / SYMPTOMS / LABS H and P 03/21/19 pg.1- Chief complaint: Shortness of breath and change in mental status H and P 03/21/19 pg.2- Acute metabolic encephalopathy. The patient ammonia was checked and it was normal at 45. H and P 03/21/19 pg.2- Also im not sure this is decompensation of his cirrhosis. H and P 03/21/19 pg.3- Hyponatremia. This is possibly due to his underlying cirrhosis DS 03/23/19 pg. 1. - Discharge diagnosis- Pain in the abdomen, shortness of breath, Hep. C DS 03/23/19 pg.1 - at times, he will just become very tachypneic. Im not sure if this is secondary to anxiety versus underlying liver disease. RISK FACTORS Hyponatremia-H and P 03/21/19 pg.2 Hepatitis C- DS 03/23/19 Cirrhosis-H and P 03/21/19 pg.2 He had TIPS procedure- H and P pg.1 Multiple paracentesis- H and P pg.1 Hypertension- H and P pg.1 History of alcohol abuse- H and P pg.1 TREATMENTS: IV Fluids- OCT 26 CT Brain- 03/21 Dr. Herrmann Lactulose 600mg PO BID- OCT 26 (This form is maintained as a part of the permanent medical record) 2014 [employer]. All Rights Reserved Chavo [email or web address] [not provided] [email or web address]
== END 2019-03-23 20:15 | DRG 433 ==
LOC: ERS 14:01 → 2NO 17:19 → T4-B 21:07
PROVIDERS: ADMIT Internal Medicine; ATTEND Internal Medicine
DX: K74.69 Other cirrhosis of liver (principal); E87.1 Hypo-osmolality and hyponatremia; B18.2 Chronic viral hepatitis C; I10 Essential (primary) hypertension; E11.9 Type 2 diabetes mellitus without complications; F41.9 Anxiety disorder, unspecified; H40.9 Unspecified glaucoma; Z79.899 Other long term (current) drug therapy; Z87.891 Personal history of nicotine dependence
CPT/HCPCS: 36415; 36416; 70450; 71045; 71250; 74018; 76705; 80053; 81003; 82140; 82550; 83605; 83690; 83880; 84443; 84484; 85025; 85610; 85730; 87040; 87086; 87149; 93005; 94640; 94760; 96361; 96365; 96367; 96368; J1815; J1956; J2001; J2543; J3370; J3490; J7620